=== PATIENT | female | born 1980 | race Caucasian/White ===

== ENCOUNTER → 2024-02-27 | Outpatient (CLI) | payer BC, SELFPAY ==
[2024-02-27 17:32] LABS: Absolute Lymphocyte Count 2.42 X10^3/uL (0.83-4.51); Absolute Neutrophil Count 4.1 X10^3/uL (2.0-7.7); Basophil# 0.04 X10^3/uL; Basophil% 0.6 % (0-1); Eosinophil# 0.06 X10^3/uL; Eosinophils% 0.9 % (0-5); Hematocrit 42.8 % (37-47); Lymphocyte # 2.42 X10^3/ul (0.83-4.51); Lymphocyte % 34.6 % (19-41); Mean Corp Hgb Conc 32.7 g/dL (32-36); Mean Corpuscular Hgb 28.8 pg (27.0-32.0); Mean Corpuscular Volume 88.1 fL (81-99); Mean Platelet Vol. 11.8 fl (6.2-12.0); Monocyte# 0.39 X10^3/uL; Monocyte% 5.6 % (0-10); NRBC Flagged by Analyzer 0 % (0-5); Neutrophil # 4.06 X10^3/uL (2.7-7.7); Neutrophil % 57.9 % (47-70); Platelet Count 320 K/mm3 (150-450); RBC Distribution Width CV 13.4 % (11.6-14.6); RBC Distribution Width SD 43.3 fl (35.1-43.9); Red Blood Count 4.86 M/mm3 (4.2-5.4)
[2024-02-27 17:59] LABS: Vitamin D,25 Hydroxy 31.7 ng/mL
[2024-02-27 18:13] LABS: AST(SGOT) 20 U/L (15-37); Alanine Aminotransfer ALT/SGPT 21 U/L (13-56); Albumin, Serum 4.2 g/dL (3.2-5.0); Alkaline Phosphatase 83 U/L (45-117); Anion Gap 8 (5-15); BUN 9 mg/dL (7-18); BUN/Creat Ratio 8.7 RATIO (10-20); Calcium,Total 9.4 mg/dL (8.5-10.1); Chloride 103 mmol/L (98-107); Cholesterol 215 mg/dL (200); Creatinine, Serum 1.04 mg/dL (0.55-1.02); EST Glomerular Filtration Rate 61 mL/min (>60); Est Glom Filt Rate - Afr Amer 74 mL/min (>60); Globulin 4.2 g/dL (2.2-4.2); Glucose 70 mg/dL (74-106); Hemoglobin A1c 7.4 % (3.8-5.6); High Density Lipoprotein 100 mg/dL; Potassium 3.6 mmol/L (3.5-5.1); Protein, Total 8.4 g/dL (6.4-8.2); Sodium Level 137 mmol/L (136-145); T4 Free Direct 1.22 ng/dL (0.76-1.46); Thyroid Stim Hormone (TSH) 3.47 uIU/mL (0.358-3.74); Triglycerides 54 mg/dL; Very Low Density Lipoprotein 11 mg/dL (5-40)
== END | disposition home or self-care (01) ==
LOC: MTLAB 14:52
PROVIDERS: PCP Family Medicine; Referring Provider Family Medicine; Visit Provider Family Medicine
DX: E10.9 Type 1 diabetes mellitus without complications (principal); E03.9 Hypothyroidism, unspecified; E78.5 Hyperlipidemia, unspecified
CPT/HCPCS: 36415; 80053; 80061; 82306; 83036; 84439; 84443; 85025

== ENCOUNTER → 2024-06-08 | Outpatient (CLI) | payer BC, SELFPAY ==
[2024-06-08 10:11] LABS: Hematocrit 41.2 % (37-47); Hemoglobin 13.2 g/dL (12.0-15.0); Mean Corpuscular Hgb 28.2 pg (27.0-32.0); Mean Platelet Vol. 11.3 fl (6.2-12.0); Platelet Count 236 K/mm3 (150-450); RBC Distribution Width CV 13.2 % (11.6-14.6); RBC Distribution Width SD 42.7 fl (35.1-43.9); Red Blood Count 4.68 M/mm3 (4.2-5.4); White Blood Count 8.8 K/mm3 (4.4-11.0)
[2024-06-08 11:11] LABS: ALB/GLOB Ratio 1.1 RATIO (0.9-2.4); AST(SGOT) 23 U/L (15-37); Alanine Aminotransfer ALT/SGPT 23 U/L (13-56); Albumin, Serum 3.9 g/dL (3.2-5.0); Alkaline Phosphatase 78 U/L (45-117); Anion Gap 8 (5-15); BUN 13 mg/dL (7-18); BUN/Creat Ratio 11.9 RATIO (10-20); Calcium,Total 9.1 mg/dL (8.5-10.1); Chloride 102 mmol/L (98-107); Cholesterol 209 mg/dL (200); Creatinine, Serum 1.09 mg/dL (0.55-1.02); EST Glomerular Filtration Rate 58 mL/min (>60); Est Glom Filt Rate - Afr Amer 70 mL/min (>60); Globulin 3.7 g/dL (2.2-4.2); Glucose 268 mg/dL (74-106); High Density Lipoprotein 84 mg/dL; Protein, Total 7.6 g/dL (6.4-8.2); Sodium Level 132 mmol/L (136-145); Triglycerides 66 mg/dL; Very Low Density Lipoprotein 13 mg/dL (5-40)
[2024-06-08 11:14] LABS: Microalbumin,Random Urine 24.8 mg/L (NO RANGE EST.); Microalbumin:Creatinine Ratio 8.8 mg/g CRE (<30 mg/g CRE)
== END | disposition home or self-care (01) ==
LOC: MTLAB 08:28
PROVIDERS: PCP Family Medicine; Referring Provider Internal Medicine Endocrinology, Diabetes & Metabolism; Visit Provider Internal Medicine Endocrinology, Diabetes & Metabolism
DX: E13.9 Other specified diabetes mellitus without complications (principal); E03.9 Hypothyroidism, unspecified
CPT/HCPCS: 36415; 80053; 80061; 82043; 82306; 82570; 84443; 85027

== ENCOUNTER → 2024-10-28 | Outpatient (CLI) | payer BC, SELFPAY ==
[2024-10-28 10:04] LABS: Hematocrit 40.4 % (37-47); Mean Corp Hgb Conc 32.2 g/dL (32-36); Mean Corpuscular Hgb 28.2 pg (27.0-32.0); Mean Corpuscular Volume 87.6 fL (81-99); Mean Platelet Vol. 10.8 fl (6.2-12.0); Platelet Count 241 K/mm3 (150-450); RBC Distribution Width CV 13.4 % (11.6-14.6); RBC Distribution Width SD 43.2 fl (35.1-43.9); Red Blood Count 4.61 M/mm3 (4.2-5.4); White Blood Count 6.4 K/mm3 (4.4-11.0)
[2024-10-28 10:38] LABS: Hemoglobin A1c 7.3 % (<=5.6)
[2024-10-28 10:54] LABS: ALB/GLOB Ratio 1.4 RATIO (0.9-2.4); AST(SGOT) 30 U/L (<=31); Alanine Aminotransfer ALT/SGPT 24 U/L (<=34); Albumin, Serum 4.2 g/dL (3.5-5.0); Alkaline Phosphatase 74 U/L (35-104); Anion Gap 12 (5-15); BUN 14 mg/dL (4-19); BUN/Creat Ratio 14.7 RATIO (10-20); Calcium,Total 9.2 mg/dL (7.6-11.0); Carbon Dioxide 22.3 mmol/L (21.0-32.0); Chloride 101 mmol/L (98-108); Cholesterol 219 mg/dL (<=200); Creatinine, Serum 0.97 mg/dL (0.70-1.20); EST Glomerular Filtration Rate 75 (>60); Glucose 160 mg/dL (70-99); High Density Lipoprotein 85 mg/dL; Low Density Lipoprotein Calc. 121 mg/dL; Potassium 4.3 mmol/L (3.3-5.1); Protein, Total 7.2 g/dL (5.9-8.4); Sodium Level 135 mmol/L (133-145); Total Bilirubin 0.55 mg/dL (0.00-1.30); Triglycerides 65 mg/dL; Very Low Density Lipoprotein 13 mg/dL (5-40); cholesterol:hdl ratio screen 2.58
[2024-10-28 10:58] LABS: Free T3 2.6 pg/mL (2.18-3.98); Vitamin D,25 Hydroxy 24.3 ng/mL (30-100)
== END | disposition home or self-care (01) ==
LOC: MTLAB 08:19
PROVIDERS: PCP Family Medicine; Referring Provider Internal Medicine Endocrinology, Diabetes & Metabolism; Visit Provider Internal Medicine Endocrinology, Diabetes & Metabolism
DX: E10.9 Type 1 diabetes mellitus without complications (principal); E03.9 Hypothyroidism, unspecified; E78.5 Hyperlipidemia, unspecified; E55.9 Vitamin D deficiency, unspecified
CPT/HCPCS: 36415; 80053; 80061; 82306; 83036; 84439; 84443; 84481; 85027

== ENCOUNTER → 2024-12-20 | Outpatient (CLI) | payer BC, SELFPAY ==
--- NOTE | 2024-12-20 09:44 | RAD_ITS ---
PROCEDURE: CERV SPINE 4 OR 5 VIEWS 12/20/2024 REASON FOR EXAM: CHRONIC NECK PAIN TECHNIQUE: 5 views of the cervical spine. FINDINGS: Vertebrae: No acute fracture. disc spaces: Maintained. Obliques: No neural foraminal stenosis. Alignment: No subluxation. Straightening of the normal lordotic curvature. soft tissues: No prevertebral soft tissue swelling. Other: RAD/Cerv Spine 4 or 5 Views IMPRESSION: Straightening of the normal lordotic curvature possibly from muscular spasm. Disclaimer: Reading Location: [id number]
== END | disposition home or self-care (01) ==
LOC: MTRAD 09:44
PROVIDERS: PCP Family Medicine; Referring Provider Family Medicine; Visit Provider Family Medicine
DX: M54.2 Cervicalgia (principal); G89.29 Other chronic pain
CPT/HCPCS: 72050

== ENCOUNTER 2025-01-28 08:04 | Outpatient (CLI) | payer BC, SELFPAY ==
[2025-01-28 10:45] LABS: Hemoglobin A1c 7.7 % (<=5.6)
[2025-01-28 11:00] LABS: ALB/GLOB Ratio 1.4 RATIO (0.9-2.4); AST(SGOT) 24 U/L (<=31); Alanine Aminotransfer ALT/SGPT 19 U/L (<=34); Albumin, Serum 4.4 g/dL (3.5-5.0); Alkaline Phosphatase 79 U/L (35-104); Anion Gap 11 (5-15); BUN 14 mg/dL (4-19); BUN/Creat Ratio 13.1 RATIO (10-20); Calcium,Total 9.2 mg/dL (7.6-11.0); Carbon Dioxide 22.2 mmol/L (21.0-32.0); Chloride 104 mmol/L (98-108); Cholesterol 192 mg/dL (<=200); Creatinine, Serum 1.08 mg/dL (0.70-1.20); EST Glomerular Filtration Rate 65 (>60); Ferritin 29 ng/mL (22-378); Free T3 2.8 pg/mL (2.18-3.98); Globulin 3.2 g/dL (2.2-4.2); Glucose 133 mg/dL (70-99); High Density Lipoprotein 76 mg/dL; Low Density Lipoprotein Calc. 101 mg/dL; Potassium 4.3 mmol/L (3.3-5.1); Protein, Total 7.6 g/dL (5.9-8.4); Sodium Level 137 mmol/L (133-145); Total Bilirubin 0.38 mg/dL (0.00-1.30); Triglycerides 74 mg/dL; Very Low Density Lipoprotein 15 mg/dL (5-40); cholesterol:hdl ratio screen 2.53
[2025-01-28 11:10] LABS: Microalbumin,Random Urine < 12.0 mg/L (NO RANGE EST.); Microalbumin:Creatinine Ratio UNABLE TO CALCULATE mg/g CRE
[2025-01-28 12:21] LABS: Iron 55 ug/dL (50-170); Iron Binding Capacity,Total 309 ug/dL (250-450); Iron Binding Capacity,Unsat 254 ug/dL (228-428)
[2025-01-31 13:08] LABS: CHOLESTEROL TOTAL 189 mg/dL (100-199); HDL-C 77 mg/dL (>39); HDL-P TOTAL 35.1 umol/L (>=30.5); INSULIN RESISTANCE SCORE <25 (<=45); LDL SIZE 21.9 nm (>20.5); LDL-C (NIH CALC) 97 mg/dL (0-99); LDL-P 958 nmol/L (<1000); SMALL LDL-P 94 nmol/L (<=527); TRIGLYCERIDES 84 mg/dL (0-149)
== END 2025-01-28 23:59 | disposition home or self-care (01) ==
LOC: MTLAB 08:06
PROVIDERS: PCP Family Medicine; Referring Provider Internal Medicine Endocrinology, Diabetes & Metabolism; Visit Provider Internal Medicine Endocrinology, Diabetes & Metabolism
DX: E13.9 Other specified diabetes mellitus without complications (principal); Z79.4 Long term (current) use of insulin; E03.9 Hypothyroidism, unspecified; E78.5 Hyperlipidemia, unspecified; Z96.41 Presence of insulin pump (external) (internal)
CPT/HCPCS: 36415; 80053; 80061; 82043; 82570; 82728; 83036; 83540; 83550; 83704; 84439; 84443; 84481

== ENCOUNTER → 2025-04-08 | Outpatient (CLI) | payer BC, SELFPAY ==
--- NOTE | 2025-04-08 15:33 | RAD_ITS ---
PROCEDURE: HAND MIN 3 VIEWS 04/08/2025 REASON FOR EXAM: THUMB PAIN TECHNIQUE: HAND MIN 3 VIEWS Laterality: Right hand COMPARISON: None FINDINGS: Bones: No fracture. Joints: Normal alignment. Joint spaces preserved. No arthropathic features. Soft tissues: Soft tissues are unremarkable. Other: RAD/Hand Min 3 Views IMPRESSION: NEGATIVE HAND SERIES Reading Location: [id number]
== END | disposition home or self-care (01) ==
LOC: MTRAD 15:23
PROVIDERS: PCP Family Medicine; Referring Provider Family Medicine; Visit Provider Family Medicine
DX: M79.644 Pain in right finger(s) (principal)
CPT/HCPCS: 73130

== ENCOUNTER → 2025-08-03 | Outpatient (CLI) | payer BC, SELFPAY ==
--- OUTSIDE RECORDS SUMMARY | 2025-08-03 09:49 | XMS RPT_ITS | CCD ---
Author Organization [facility] Care French Folder Name Role Phone Laura RN, Gracie Unavailable Un available Laura BUTTS, Gracie Unavailable Un available Alphonse [employer] MAGENT[employer] DEVELOPER, Tayesha Primary Care Provider Alphonse [employer] DEVELOPER, Tayesha Unavailable Eris Valdez MD Unavailable Laura BUTTS, Gracie Unavailable Un available Alphonse [employer] DEVELOPER, Tayesha Primary Care Provider Alphonse [employer] DEVELOPER, Tayesha Unavailable Courtney MOREIRA, Eris Unavailable Radha Cole DO Unavailable [phone] Dejuan Boles MD Primary Care Provider Laura BUTTS, Gracie Unavailable Un available Alphonse [employer] MAG[employer] DEVELOPER, Tayesha Unavailable Courtney MOREIRA, Eris Unavailable Radha Cole DO Unavailable Dejuan Boles MD Primary Care Provider Jefferson MOREIRA, Deacon Nguyễn Unavailable Austin Wood PT Unavailable Laura BUTTS, Gracie Unavailable Un available Alphonse [employer] DEVELOPER, Tayesha Unavailable Austin Wood PT Unavailable Deepak Hall DOwon Unavailable Eris Valdez MD Unavailable Pat MOREIRA, Anna Pleitez Unavailable Laura RN, Gracie Unavailable Un available Alphonse [employer] DEVELOPER, Tusharesha Unavailable Jefferson MOREIRA, Deacon Nguyễn Unavailable Hall DO, Kailey Unavailable DEJUAN BOLES Primary Care Unavailable PROVIDER, UNKNOWN Admitting Unavailable PROVIDER, UNKNOWN Attending Unavailable YESENIA PERRY Referring Unavailable Angelica Watkins MD Primary Care Provider Steven MOREIRA, Dr. Ifeoma Buckner Attending Provide r Steven MOREIRA, Dr. Ifeoma Buckner Referring Provide r JUNE DAVIES, EUGENIO Primary Care Physician Angelica Watkins MD Attending Provider Angelica Watkins MD Referring Provider JUNE DO, EUGENIO Primary Care Unavailable ERIC MOREIRA, DARLENE Attending Unavailable ERIC MOREIRA, DARLENE Attending Unavailable JUNE DO, [facility] Primary Care Unavailable Angelica Watkins MD Primary Care Provider [phone] Steven MOREIRA, Dr. Ifeoma Buckner Attending Provide r Steven MOREIRA, Dr. Ifeoma Buckner Referring Provide r Dr. Elfego Durand MD Attending Provider Dr. Elfego Durand MD Referring Provider Jared Kunz Primary Care Unavailable Raghunathan, Ifeoma Na Attending Unavaila ble Raghunathan, Ifeoma Na Referring Unavaila ble Raghunathan, Ifeoma Na Attending Unavaila ble Raghunathan, Ifeoma Na Referring Unavaila ble June, Alon Primary Care Unavailable June, Chalon Primary Care Unavailable Angelica Watkins Attending Unavailable June, Chalon Referring Unavailable Raghunathan, Ifeoma Na Attending Unavaila ble Raghunathan, Ifeoma Na Referring Unavaila ble June, Chalon Primary Care Unavailable Elfego Durand Attending Unavailable Elfego Durand Referring Unavailable Angelica Watkins Primary Care Unavailable Dejuan Crain MD Primary Care Provider [phone] JUNELUIS A DAVIES, EUGENIO Primary Care Unavailable SANTI MOREIRA, ADRIAN Attending Unavailable JUNE DAVIES, EUGENIO Primary Care Unavailable SANTI MOREIRA, ADRIAN Attending Unavailable DARLENE REYES MD Attending Unavailable JUNE DAVIES, EUGENIO Primary Care Unavailable JUNE DAVIES, EUGENIO Primary Care Unavailable SANTI MOREIRA, ADRIAN Attending Unavailable Allergies Allergy Classification Reported Allergen(s) Allergy Type Date of Onset Reaction(s) Facility (20 sources) Sulfamethoxazole / Trimethoprim; Translations: [SULFAMETHOXAZOLE W-TRIMETHOPRIM] Drug Allergy 9 [facility] Work Phone: Medications Current Medications Medication Drug Class(es) Dates Sig (Normalized) Sig (Original) acetaminophen 500 mg oral tablet (1 source) Start: 02-07-2025 End: 03-07-2025 Tylenol Extra Strength 500 mg oral tablet Dose : 500 mg = 1 tab(s), Oral, q6hr, PRN pain 1-6, X 14 day(s), # 24 tab(s), 1 Refill(s), 03/07/25 7:42:00 AM EDT, Pharmacy: [facility], 157.48, cm, 02/07/25 7:08:00 EDT, Height, kg, 02/07/25 7:08:00 EDT, Dosing Weight Start Date: 02/07/25 Stop Date: 03/07/25 Status: Ordered Quantity: 24.0 Unit: tab(s) Repeat number: 2 acetaminophen 325 mg / oxyCODONE hydrochloride 5 mg oral tablet (1 source) Opioid Agonist Start: 02-07-2025 End: 02-10-2025 Percocet 5 mg-325 mg oral tablet Dose = 1 tab(s), Oral, q6hr, PRN for pain 7-10, X 3 day(s), # 5 tab(s), 0 Refill(s), Pharmacy: [facility], Postoperative pain, 157.48, cm, 02/07/25 7:08:00 EDT, Height, 68.18, kg, 02/07/25 7:08:00 EDT, Dosing Weight Start Date: 02/07/25 Stop Date: 02/10/25 Status: Ordered Quantity: 5.0 Unit: tab(s) Repeat number: 1 Indications: Other acute postprocedural pain; Albuterol (20 sources) beta2-Adrenergic Agonist Start: 05-27-2024 albuterol PRN as needed for shortness of breath or wheezing, 0 Refill(s) Start Date: 05/27/24 Status: Ordered Medication Dispense Status: Completed Total Allowed Fills: 1 Fills Dispensed: 0 Start: 05-27-2024 albuterol PRN as needed for shortness of breath or wheezing, 0 Refill(s) Start Date: 05/27/24 Status: Ordered Repeat number: 1 Start: 10-16-2021 End: 08-21-2022 take 2 puff(s) by mouth every four hours as needed for wheezing albuterol (PROVENTIL HFA) INHALATION HFA inhaler (VENTOLIN,PROAIR,PROVENTIL) 90mcg Indications: Mild intermittent asthma without complication (HCC) Inhale 2 Puffs by mouth every 4 hours as needed for Wheezing or Shortness of Breath. 8.5 g 5 07/22/2022 Active amoxicillin 875 mg / clavulanate 125 mg oral tablet (3 sources) Penicillin-class Antibacterial Start: 07-22-2022 End: 07-29-2022 take 1 tablet by mouth twice daily amoxicillin-clavulanate (Augmentin) 875-125 MG per tablet Indications: Acute recurrent sinusitis, unspecified location Take 1 Tablet by mouth 2 times daily for 7 days. 14 Tablet 0 07/22/2022 07/29/2022 Active Start: 06-18-2022 End: 06-25-2022 take 1 tablet by mouth twice daily amoxicillin-clavulanate (Augmentin) 875-125 MG per tablet Indications: Acute bacterial rhinosinusitis Take 1 Tablet by mouth 2 times daily for 7 days. (take until gone) 14 Tablet 0 06/18/2022 06/25/2022 Active ascorbic acid 60 mg / beta carotene 5000 unt / copper sulfate 40 mg / dl-alpha tocopheryl acetate 30 unt / sodium selenite 0.04 mg / zinc oxide 40 mg oral tablet (20 sources) Vitamin C Multiple Vitamin (Multivitamin Adult) TABS as directed Active atorvastatin 80 mg oral tablet (20 sources) HMG-CoA Reductase Inhibitor Start: 07-15-2024 atorvastatin 80 mg oral tablet Dose : 80 mg = 1 tab(s), Oral, Daily, # 90 tab(s), 1 Refill(s), Pharmacy: [facility], 157.5, cm, 02/01/25 11:13:00 EDT, Height, kg, 02/01/25 11:13:00 EDT, Dosing Weight Start Date: 02/02/25 Status: Ordered Medication Dispense Status: Completed Quantity: 90.0 Unit: tab(s) Total Allowed Fills: 2 Fills Dispensed: 0 Start: 02-04-2023 End: 06-27-2024 take 1 tablet by mouth once daily atorvastatin (LIPITOR) 80 mg tablet Indications: Type 1 diabetes mellitus without complication (HCC) Take 1 Tablet by mouth daily. 90 Tablet 03/29/2024 06/27/2024 Active Start: 10-16-2021 End: 07-22-2023 take 1 tablet by mouth once daily atorvastatin (LIPITOR) 40 mg tablet Indications: Type 1 diabetes mellitus without complication (HCC) Take 1 Tablet by mouth daily. 90 Tablet 3 07/22/2022 07/22/2023 Active Continuous Blood Gluc Sensor (Dexcom G6 Sensor) MISC (20 sources) Start: 01-17-2023 Continuous Blo od Gluc Sensor (Dexcom G6 Sensor) MISC 1 Units every 10 days. 9 Each 5 01/17/2023 Active Start: 03-01-2022 Continuous Blo od Gluc Sensor (Dexcom G6 Sensor) MISC 1 Units every 10 days. 9 Each 5 03/01/2022 Active Start: 10-30-2021 Continuous Blo od Gluc Sensor (Dexcom G6 Sensor) MISC 1 Units every 10 days. 3 Each 2 10/30/2021 Active Continuous Blood Gluc Transm it (Dexcom G6 Transmitter) MISC (15 sources) Start: 01-16-2023 Continuous Blo od Gluc Transmit (Dexcom G6 Transmitter) MISC 1 Device every 3 months. 1 Each 01/16/2023 Active Continuous Glucose Sensor (Dexcom G6 Sensor) (5 sources) Start: 07-15-2024 Continuous Glu cose Sensor (Dexcom G6 Sensor) Indications: Type 1 diabetes mellitus without complication (HCC) 1 Each every 10 days. 9 Each 07/16/2024 11:30 AM EST 07/15/2024 Active Start: 03-29-2024 End: 06-27-2024 Continuous Glucose Sensor (D excom G6 Sensor) Indications: Type 1 diabetes mellitus without complication (HCC) 1 Each every 10 days. 9 Each 03/29/2024 06/27/2024 Active Start: 01-17-2023 End: 03-26-2024 Continuous Glucose Sensor (D excom G6 Sensor) 1 Units every 10 days. 9 Each 5 01/17/2023 03/26/2024 Discontinued (Reorder (*won't e-cancel)) Start: 01-17-2023 Continuous Glu cose Sensor (Dexcom G6 Sensor) 1 Units every 10 days. 9 Each 01/17/2023 Active Continuous Glucose Transmitt er (Dexcom G6 Transmitter) (4 sources) Start: 03-29-2024 End: 06-27-2024 Continuous Glucose Transmitt er (Dexcom G6 Transmitter) Indications: Type 1 diabetes mellitus without complication (HCC) 1 Device every 3 months. 1 Each 03/29/2024 06/27/2024 Active Start: 01-16-2023 End: 03-26-2024 Continuous Glucose Transmitt er (Dexcom G6 Transmitter) 1 Device every 3 months. 1 Each 01/16/2023 03/26/2024 Discontinued (Reorder (*won't e-cancel)) Start: 01-16-2023 Continuous Glu cose Transmitter (Dexcom G6 Transmitter) 1 Device every 3 months. 1 Each 01/16/2023 Active DME MISCellaneous (20 sources) Start: 02-02-2025 DME MISCellane ous See Instructions, Omnipod 5 g6/g7 pods 1 pod every 3 days #2 boxes for 90 days and 2 refills E11.65., # 2 EA, 6 Refill(s), Pharmacy: [facility], 157.5, cm, 02/01/25 11:13:00 EDT, Height, 68.2, kg, 02/01/25 11:13:00 EDT, Dosing Weight Start Date: 02/02/25 Status: Ordered Medication Dispense Status: Completed Quantity: 2.0 Unit: EA Total Allowed Fills: 7 Fills Dispensed: 0 Start: 02-02-2025 DME MISCellane ous See Instructions, Dexcom G6 Transmitter. 1 every 90 days. 1 refill. E11.65, # 1 EA, 1 Refill(s), Pharmacy: [facility], 157.5, cm, 02/01/25 11:13:00 EDT, Height, 68.2, kg, 02/01/25 11:13:00 EDT, Dosing Weight Start Date: 02/02/25 Status: Ordered Medication Dispense Status: Completed Quantity: 1.0 Unit: EA Total Allowed Fills: 2 Fills Dispensed: 0 Start: 02-02-2025 DME MISCellane ous See Instructions, Omnipod 5 g6/g7 pods 1 pod every 3 days #2 boxes for 90 days and 2 refills E11.65., # 2 EA, 6 Refill(s), Pharmacy: [facility], 157.5, cm, 02/01/25 11:13:00 EDT, Height, 68.2, kg, 02/01/25 11:13:00 EDT, Dosing Weight Start Date: 02/02/25 Status: Ordered Quantity: 2.0 Unit: EA Repeat number: 7 Start: 02-02-2025 DME MISCellane ous See Instructions, Dexcom G6 Transmitter. 1 every 90 days. 1 refill. E11.65, # 1 EA, 1 Refill(s), Pharmacy: [facility], 157.5, cm, 02/01/25 11:13:00 EDT, Height, 68.2, kg, 02/01/25 11:13:00 EDT, Dosing Weight Start Date: 02/02/25 Status: Ordered Quantity: 1.0 Unit: EA Repeat number: 2 Start: 01-11-2025 DME MISCellane ous See Instructions, Dexcom G6 Sensors. 1 sensor every 10 days. 3 per 30 days. 3 refills. E11.65, # 3 EA, 3 Refill(s), Pharmacy: [facility], 157.5, cm, 01/05/25 13:11:00 EDT, Height, 69, kg, 01/05/25 13:11:00 EDT, Dosing Weight Start Date: 01/11/25 Status: Ordered Medication Dispense Status: Completed Quantity: 3.0 Unit: EA Total Allowed Fills: 4 Fills Dispensed: 0 Start: 01-11-2025 DME MISCellane ous See Instructions, Dexcom G6 Sensors. 1 sensor every 10 days. 3 per 30 days. 3 refills. E11.65, # 3 EA, 3 Refill(s), Pharmacy: [facility], 157.5, cm, 01/05/25 13:11:00 EDT, Height, 69, kg, 01/05/25 13:11:00 EDT, Dosing Weight Start Date: 01/11/25 Status: Ordered Quantity: 3.0 Unit: EA Repeat number: 4 Start: 12-13-2024 DME MISCellane ous See Instructions, Dexcom G6 Transmitter. 1 every 90 days. 1 refill. E11.65, # 1 EA, 1 Refill(s), Pharmacy: [facility], 156, cm, 10/28/24 14:15:00 EST, Height, 66.5, kg, 10/28/24 14:15:00 EST, Dosing Weight Start Date: 12/13/24 Status: Ordered Quantity: 1.0 Unit: EA Repeat number: 2 Start: 10-28-2024 DME MISCellane ous See Instructions, Omnipod 5 g6/g7 pods 1 pod every 3 days #2 boxes for 90 days and 2 refills E11.65., # 2 EA, 6 Refill(s), Pharmacy: [facility], 156, cm, 10/28/24 14:15:00 EST, Height, 66.5, kg, 10/28/24 14:15:00 EST, Dosing Weight Start Date: 10/28/24 Status: Ordered Quantity: 2.0 Unit: EA Repeat number: 7 Start: 08-10-2024 DME MISCellane ous See Instructions, skin tack wipe, 1 wipe per 10 days to be used with dexcom sensor application. 1 box for 90 days and 1 refill E11.65., # 1 EA, 1 Refill(s), Pharmacy: [facility], 156, cm, 08/10/24 9:01:00 EST, Height, 67.86, kg, 08/10/24 9:01:00 EST, Dosing Weight Start Date: 08/10/24 Status: Ordered Medication Dispense Status: Completed Quantity: 1.0 Unit: EA Total Allowed Fills: 2 Fills Dispensed: 0 Start: 08-10-2024 DME MISCellane ous See Instructions, skin tack wipe, 1 wipe per 10 days to be used with dexcom sensor application. 1 box for 90 days and 1 refill E11.65., # 1 EA, 1 Refill(s), Pharmacy: [facility], 156, cm, 08/10/24 9:01:00 EST, Height, 67.86, kg, 08/10/24 9:01:00 EST, Dosing Weight Start Date: 08/10/24 Status: Ordered Quantity: 1.0 Unit: EA Repeat number: 2 glucagon 3 mg nasal powder (20 sources) Antihypoglycemic Agent Start: 07-22-2022 Glucago n (Baqsimi Two Pack) 3 MG/DOSE POWD Indications: Type 1 diabetes mellitus without complication Use 1 Dose in each nostril as needed. For hypoglycemia 2 Each 3 07/22/2022 Active Start: 10-21-2021 End: 07-22-2022 Glucagon (Baqsimi Two Pack) 3 MG/DOSE POWD Use 3 mg in each nostril as needed. For hypoglycemia 1 Each 3 10/21/2021 07/22/2022 Discontinued (Reorder (*won't e-cancel)) herbal/nutritional product (3 sources) Start: 02-01-2025 herbal/nutriti onal product green tea pill, 0 Refill(s) Start Date: 02/01/25 Status: Ordered Medication Dispense Status: Completed Total Allowed Fills: 1 Fills Dispensed: 0 Start: 02-01-2025 herbal/nutriti onal product green tea pill, 0 Refill(s) Start Date: 02/01/25 Status: Ordered Repeat number: 1 hydrOXYzine hydrochloride 25 mg oral tablet (1 source) Antihistamine Start: 05-03-2025 hydrOXYzine hydrochloride 25 mg oral tablet Dose : 25 mg = 1 tab(s), Oral, QID, PRN as needed for anxiety, # 20 tab(s), 0 Refill(s), Pharmacy: [facility], Anxiety, 156, cm, 05/03/25 9:31:00 EDT, Height, kg, 05/03/25 9:31:00 EDT, Dosing Weight Start Date: 05/03/25 Status: Ordered Medication Dispense Status: Completed Quantity: 20.0 Unit: tab(s) Total Allowed Fills: 1 Fills Dispensed: 0 Indications: Anxiety disorder, unspecified; ibuprofen 600 mg oral tablet (1 source) Nonsteroidal Anti-inflammatory Drug Start: 02-07-2025 End: 02-21-2025 ibuprofen 600 mg oral tablet Dose : 600 mg = 1 tab(s), Oral, q6h, X 14 day(s), # 56 tab(s), 0 Refill(s), 02/21/25 7:41:00 AM EDT, Pharmacy: [facility], 157.48, cm, 02/07/25 7:08:00 EDT, Height, kg, 02/07/25 7:08:00 EDT, Dosing Weight Start Date: 02/07/25 Stop Date: 02/21/25 Status: Ordered Quantity: 56.0 Unit: tab(s) Repeat number: 1 insulin aspart, human 100 unt/ml injectable solution (20 sources) Insulin Analog Start: 09-07-2022 End: 09-19-2023 insulin aspart (NovoLOG) 100 UNIT/ML injection use as directed in insulin pump up to 100 units per day 90 mL 5 12/26/2023 4:46 PM EDT 09/19/2023 Active insulin lispro 100 unt/ml injectable solution (20 sources) Insulin Analog Start: 04-04-2025 HumaLOG 100 un its/mL injectable solution VIAL Dose : 40 unit(s) =, Subcutaneous, qDay, via insulin pump, # 30 mL, 1 Refill(s), Pharmacy: [facility], 156, cm, 02/21/25 15:10:00 EDT, Height, kg, 02/21/25 15:10:00 EDT, Dosing Weight Start Date: 04/04/25 Status: Ordered Medication Dispense Status: Completed Quantity: 30.0 Unit: mL Total Allowed Fills: 2 Fills Dispensed: 0 Start: 12-27-2024 HumaLOG 100 un its/mL injectable solution VIAL Dose : 40 unit(s) =, Subcutaneous, qDay, via insulin pump, # 30 mL, 1 Refill(s), Pharmacy: [facility], 156, cm, 10/28/24 14:15:00 EST, Height, kg, 10/28/24 14:15:00 EST, Dosing Weight Start Date: 12/27/24 Status: Ordered Quantity: 30.0 Unit: mL Repeat number: 2 Start: 03-28-2024 insulin lispro (HumaLOG) 100 UNIT/ML injection Indications: Type 1 diabetes mellitus without complication use as directed in insulin pump up to 100 units per day 90 mL 03/29/2024 4:38 PM EDT 03/28/2024 Active Start: 07-22-2022 End: 03-26-2024 insulin lispro (HumaLOG) 100 UNIT/ML injection Indications: Type 1 diabetes mellitus without complication (HCC) use as directed in insulin pump up to 100 units per day 90 mL 3 07/22/2022 03/26/2024 Discontinued (Reorder (*won't e-cancel)) Start: 01-14-2022 End: 07-22-2022 insulin lispro (HumaLOG) 100 UNIT/ML injection use as directed in insulin pump up to 100 units per day 90 mL 0 01/14/2022 07/22/2022 Discontinued (Reorder (*won't e-cancel)) Start: 09-20-2021 insulin lispro (HumaLOG) 100 UNIT/ML injection Use as directed in insulin pump up to 100 units per day. 90 mL 1 09/20/2021 Active levothyroxine sodium 0.112 mg oral tablet (20 sources) l-Thyroxine Start: 12-13-2024 levothyroxine 112 mcg (0.112 mg) oral tablet Dose : 112 mcg = 1 tab(s), Oral, qDay, # 30 tab(s), 4 Refill(s), Pharmacy: [facility], 157.5, cm, 02/01/25 11:13:00 EDT, Height, kg, 02/01/25 11:13:00 EDT, Dosing Weight Start Date: 02/02/25 Status: Ordered Medication Dispense Status: Completed Quantity: 30.0 Unit: tab(s) Total Allowed Fills: 5 Fills Dispensed: 0 Start: 10-16-2021 End: 09-18-2024 take 1 tablet by mouth once daily in the evening levothyroxine (SYNTHROID) 100 MCG tablet Indications: Hypothyroidism, unspecified type Take 1 Tablet by mouth daily. 90 Tablet 3 03/29/2024 4:38 PM EDT 09/19/2023 Active molnupiravir (LAGEVRIO) 200 MG CAPS capsule (2 sources) Start: 03-11-2022 End: 03-16-2022 take 4 capsules by mouth twice daily molnupiravir (LAGEVRIO) 200 MG CAPS capsule Take 4 Capsules by mouth 2 times daily for 5 days. 40 Capsule 0 03/11/2022 03/16/2022 Active montelukast 10 mg oral tablet (20 sources) Leukotriene Receptor Antagonist Start: 10-16-2021 End: 09-18-2024 take 1 tablet by mouth once daily in the evening montelukast (SINGULAIR) 10 MG tablet Indications: Mild intermittent asthma without complication (HCC) Take 1 Tablet by mouth daily. 90 Tablet 3 07/14/2024 4:40 PM EST 09/19/2023 Active nitrofurantoin, macrocrystals 25 mg / nitrofurantoin, monohydrate 75 mg oral capsule (1 source) Nitrofuran Antibacterial Start: 05-03-2025 End: 05-10-2025 Macrobid 100 mg oral capsule Dose : 100 mg = 1 cap(s), Oral, BID, Take with food, X 7 day(s), # 14 cap(s), 0 Refill(s), 05/10/25 9:46:00 AM EDT, Pharmacy: [facility], 156, cm, 05/03/25 9:31:00 EDT, Height, 68.1, kg, 05/03/25 9:31:00 EDT, Dosing Weight Start Date: 05/03/25 Stop Date: 05/10/25 Status: Ordered Medication Dispense Status: Completed Quantity: 14.0 Unit: cap(s) Total Allowed Fills: 1 Fills Dispensed: 0 norethindrone 0.35 mg oral tablet (14 sources) Start: 05-26-2023 End: 05-25-2024 take 1 tablet by mouth once daily norethindrone (MICRONOR) 0.35 MG tablet Take 1 Tablet by mouth daily. 84 Tablet 4 05/28/2023 10:42 AM EDT 05/26/2023 Active Probiotic (5 sources) Start: 01-05-2025 Probiotic 0 Refill(s) Start Date: 01/05/25 Status: Ordered Medication Dispense Status: Completed Total Allowed Fills: 1 Fills Dispensed: 0 Start: 01-05-2025 Probiotic 0 Re fill(s) Start Date: 01/05/25 Status: Ordered Repeat number: 1 Vitamin D3 (5 sources) Start: 01-05-2025 Vitamin D3 qDa y, 0 Refill(s) Start Date: 01/05/25 Status: Ordered Medication Dispense Status: Completed Total Allowed Fills: 1 Fills Dispensed: 0 Start: 01-05-2025 Vitamin D3 qDa y, 0 Refill(s) Start Date: 01/05/25 Status: Ordered Repeat number: 1 Completed/Discontinued Medications Medication Drug Class(es) Dates Sig (Normalized) Sig (Original) 10 ml lidocaine hydrochloride 20 mg/ml injection (4 sources) Antiarrhythmic, Amide Local Anesthetic Start: 12-06-2022 End: 12-06-2022 lidocaine (XYLOCAINE) 2 % injection Start: 12-06-2022 End: 12-06-2022 lidocaine (XYLOCAINE) 2 % in jection Start: 12-06-2022 End: 12-06-2022 lidocaine (XYLOCAINE) 2 % in jection Start: 12-06-2022 End: 12-06-2022 lidocaine (XYLOCAINE) 2 % in jection nirmatrelvir-ritonavir (PAXLOVID) 20 x 150 MG & 10 x 100MG tablet therapy pack (1 source) Start: 03-11-2022 End: 03-11-2022 nirmatrelvir-ritonavir (PAXLOVID) 20 x 150 MG & 10 x 100MG tablet therapy pack Take two nirmatrelvir (pink) tablets (300 mg) and one 100 mg ritonavir (white) tablet twice a day for 5 days until finished. 30 Tablet 0 03/11/2022 03/11/2022 Discontinued (Error) 1 ml triamcinolone acetonide 40 mg/ml prefilled syringe (4 sources) Corticosteroid Start: 12-06-2022 End: 12-06-2022 triamcinolone acetonide (KENALOG-40) 40 MG/ML injection Start: 12-06-2022 End: 12-06-2022 triamcinolone acetonide (RICKIE ALOG-40) 40 MG/ML injection Start: 12-06-2022 End: 12-06-2022 triamcinolone acetonide (RICKIE ALOG-40) 40 MG/ML injection Start: 12-06-2022 End: 12-06-2022 triamcinolone acetonide (RICKIE ALOG-40) 40 MG/ML injection Problems Active Problems Problem Classification Problem Date Documented Date Episodic/Chronic Anxiety disorders (20 sources) Aerophobia; 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] Onset: 08-29-2021 08-29-2021 Chronic Asthma (20 sources) Mild intermittent asthma; Translations: [Mild intermittent asthma, uncomplicated] Onset: 08-29-2021 08-29-2021 Chronic Diabetes mellitus with complications (2 sources) Hyperglycemia due to type 1 diabetes mellitus; Translations: [Type 1 diabetes mellitus with hyperglycemia] Chronic Diabetes mellitus without complication (20 sources) Type 1 diabetes mellitus; Translations: [Type 1 diabetes mellitus without complications] Onset: 08-29-2021 08-29-2021 Chronic Disorders of lipid metabolism (20 sources) Hyperlipidemia; Translations: [Hyperlipidemia, unspecified] Onset: 08-29-2021 08-29-2021 Chronic Genitourinary symptoms and ill-defined conditions (2 sources) Dysuria; Translations: [Dysuria] Onset: 05-03-2025 Episodic Malaise and fatigue (5 sources) Fatigue 05-26-2024 Episodic Menstrual disorders (20 sources) Intermenstrual bleeding - irregular; Translations: [Excessive and frequent menstruation with irregular cycle] Onset: 08-29-2021 08-29-2021 Chronic Nutritional deficiencies (5 sources) Vitamin D deficiency 06-22-2024 Chronic Other and unspecified benign neoplasm (5 sources) Leiomyoma 05-27-2024 Episodic Other connective tissue disease (2 sources) Biceps tendinitis; Translations: [Bicipital tendinitis, right shoulder] Episodic Other connective tissue disease (1 source) Pain in right finger(s); Translations: [Pain in right finger(s)] Onset: 04-14-2025 Episodic Other nervous system disorders (1 source) Postoperative pain ; Translations: [Other acute postprocedural pain] Onset: 02-07-2025 Episodic Other non-traumatic joint disorders (5 sources) Chronic pain of right upper limb; Translations: [Pain in right shoulder] Episodic Other nutritional; endocrine; and metabolic disorders (6 sources) Overweight in adulthood with body mass index of 25 or more but less than 30; Translations: [Body mass index (BMI) 26.0-26.9, adult] Episodic Other screening for suspected conditions (not mental disorders or infectious disease) (3 sources) Patient encounter status; Translations: [Encounter for screening mammogram for malignant neoplasm of breast] Onset: 11-10-2023 03-06-2023 Episodic Other upper respiratory infections (2 sources) Acute rhinosinusitis; Translations: [Acute sinusitis, unspecified] Episodic Thyroid disorders (20 sources) Hypothyroidism; Translations: [Hypothyroidism, unspecified] Onset: 08-29-2021 08-29-2021 Chronic Unclassified (1 source) OUTSIDE CORRESPONDENCE Unclassified (1 source) Patient encounter status 01-26-2025 Viral infection (1 source) Disease caused by 2019-nCoV; Translations: [COVID-19] Episodic Past or Other Problems Problem Classification Problem Date Documented Date Episodic/Chronic Benign neoplasm of uterus (20 sources) Uterine leiomyoma; Translations: [Leiomyoma of uterus, unspecified] Onset: 08-29-2021 08-29-2021 Episodic Other nervous system disorders (1 source) Other acute postprocedural pain; Translations: [Other acute postprocedural pain] Onset: 02-07-2025 Episodic Spondylosis; intervertebral disc disorders; other back problems (1 source) Cervicalgia; Translations: [Cervicalgia] Onset: 12-23-2024 Episodic Results Test Name Value Interpretation Reference Range Facility No Panel Informationon 05-03 Culture Urine 10,000 - 50,000 cfu/ ml Mixed growth consistent with normal urogenital farnaz. [facility] Work Phone: Hand Min 3 Viewson 5 Hand Min 3 Views [facility] Imaging Services [address] [place] [address] [id number] Hand Min 3 Views MR#: [id number] Acct: [id number] Name: REYES BRAGA Rep #: [id number] : 1980 F 44 From: Jozef mcgee MD PCP: Dr. Angelica Watkins MD Status: REG CLI Study: Hand Min 3 Views Date of Exam: 04/08/25 Exam# [id number] Ordering Dr: Elfego Durand MD PROCEDURE: HAND MIN 3 VIEWS 04/08/2025 REASON FOR EXAM: THUMB PAIN TECHNIQUE: HAND MIN 3 VIEWS Laterality: Right hand COMPARISON: None FINDINGS: Bones: No fracture. Joints: Normal alignment. Joint spaces preserved. No arthropathic features. Soft tissues: Soft tissues are unremarkable. Other: RAD/Hand Min 3 Views IMPRESSION: NEGATIVE HAND SERIES Reading Location: [id number] CC: Dr. Angelica Watkins MD; Dr. Elfego Durand MD Php Magento Developer: Signed [facility] Final Surgical Pathology Rep [facility] 02-08-2025 Final Surgical Pathology Report . Pathology Reports Accession: Collected Date/Time: Received Date/Time: Pathologist: [id number] 02/07/2025 07:56 EDT 02/07/2025 14:11 EDT NIKKO PUGA MD Final Surgical Pathology Report DIAGNOSIS: ENDOMETRIAL CURETTINGS: - PROLIFERATIVE ENDOMETRIUM, WITH FOCAL DISORDERED PROLIFERATIVE PATTERN - NEGATIVE FOR HYPERPLASIA OR MALIGNANCY CLINICAL INFORMATION: ABNORMAL UTERINE AND VAGINAL BLEEDING Procedure: ABNORMAL UTERINE BLEEDING, UTERINE POLYP, STERILIZATION Preoperative diagnosis: DILATION AND CURETTAGE HYSTEROSCOPY, NOVASURE ENDOMETRIAL ABLATION Postoperative diagnosis: DILATION AND CURETTAGE HYSTEROSCOPY, NOVASURE ENDOMETRIAL ABLATION SPECIMEN: A ENDOMETRIAL CURETTINGS GROSS DESCRIPTION: All parts labelled with patient name and [id number] Received in formalin labelled endometrial curettings Are multiple aranda-brown hemorrhagic curettings aggregating to 2.5 x 2 x 0.7 cm. TS-1 Tima Hernandez, Pathologists' Battery Plate Remover (ASCP) Performed by TIMA HERNANDEZ MICROSCOPIC DESCRIPTION: The microscopic examination is performed, except in the case of Gross Only. Verified by Pathology Report verified by [facility] NIKKO PUGA Sign out Date: 02/08/2025 12:49 Performing Lab: [facility], [address] [place] [address] Pathology Dept Disclaimer If ancillary studies were utilized, the following Laboratory Developed Test (LDT) disclaimer will apply: Under CLIA requirements, [facility] is qualified to perform high complexity testing. For all ancillary stains, positive and negative controls stain appropriately. Performance characteristics of immunohistochemical and chromogenic in-situ hybridization tests have been determined by [facility]. These tests are used for clinical purposes, They should not be regarded as investigational or for research. Normal [facility] LABORATORYOrdered By: Denis Vidales on 02-07-2025 Glucose [Mass/Vol] 197 mg/dL High 70 - 110 mg/dL [facility] Work Phone: LABORATORYOrdered By: Flory Irizarry on 02-07-2025 HCG ( test) Ql Negative (02/07/25 6:53 AM) Normal AO Manual Urine SS test (u) int Not detected Invalid Interpretation Code AO Manual Urine SS PREGUon 02-07-2025 HCG ( test) Ql (U) Negative Normal [facility] Comment on above: Performed By: #### P REGU #### [address] [place], [place] [address] test (u) int Not detected Invalid Interpretation Code [facility] Comment on above: Performed By: #### P REGU #### [address] [address] NMR Lipoprofileon 01-31-2025 Cholesterol [Mass/Vol] 189 mg/dL Normal 100-199 [facility] Comment on above: Order Comment: Test( s) 528371-VSQ-Z; 524884-HHN-B; 020952-Rmqwnxnruhszn;975315-Nvvganqjbgd, Total; 830696-JQV-Q (Total); 676044-Ftolw LDL-P; 935423-UYR Size; 243737-HN-BU Scorewas developed and its performance characteristicsdetermined by [employer]. It has not been cleared or approvedby the Food and Drug Administration. Performed By: #### L 501.9985, L500.4100, L506.1001, L500.4050, L100.0500, L501.05237, L506.0400, L501.9520 #### [facility] [address] [place], [address] Cholesterol in HDL [Mass/Vol] 77 mg/dL Normal >39 [facility] Comment on above: Order Comment: Test( s) 616957-NGS-I; 984591-SFM-H; 719784-Rvpmaanmpnkwz;881436-Yweatccgwgw, Total; 030112-GGU-D (Total); 211109-Vgoki LDL-P; 529406-EEZ Size; 447128-ZG-QB Scorewas developed and its performance characteristicsdetermined by [employer]. It has not been cleared or approvedby the Food and Drug Administration. Performed By: #### L 501.9985, L500.4100, L506.1001, L500.4050, L100.0500, L501.58390, L506.0400, L501.9520 #### [facility] [address] [facility] [place], [address] Cholesterol in LDL [Mass/Vol] 97 mg/dL Normal 0-99 [facility] Comment on above: Order Comment: Test( s) 669628-TJJ-L; 609147-MPP-D; 852315-Hgoutauiidjsb;759197-Qkingadgxec, Total; 278341-MVV-V (Total); 845488-Dooir LDL-P; 070981-BMI Size; 022106-VB-GO Scorewas developed and its performance characteristicsdetermined by [employer]. It has not been cleared or approvedby the Food and Drug Administration. Result Comment: Opti mal < 100 Above optimal 100 - 129 Borderline 130 - 159 High 160 - 189 Very high > 189 Performed By: #### L 501.9985, L500.4100, L506.1001, L500.4050, L100.0500, L501.89692, L506.0400, L501.9520 #### [facility] [address] [place], [address] HDL-P TOTAL 35.1 umol/L Normal >=30.5 [facility] Comment on above: Order Comment: Test( s) 460573-OTJ-E; 470521-EDP-R; 295664-Atfzzdjiyquvg;839518-Bgqzkpowvku, Total; 104370-BUW-E (Total); 825808-Jqlzq LDL-P; 268319-STL Size; 488193-VD-US Scorewas developed and its performance characteristicsdetermined by [employer]. It has not been cleared or approvedby the Food and Drug Administration. Performed By: #### L 501.9985, L500.4100, L506.1001, L500.4050, L100.0500, L501.78791, L506.0400, L501.9520 #### [facility] [address] [place], [address] INS. RES. SCORE <25 Normal <=45 [facility] Comment on above: Order Comment: Test( s) 000965-HKE-I; 827769-PQM-T; 007470-Bntugwrxcbnxp;246701-Kkxbzafhasi, Total; 490172-CMF-M (Total); 804256-Ilynk LDL-P; 671847-AJR Size; 308720-OJ-PC Scorewas developed and its performance characteristicsdetermined by [employer]. It has not been cleared or approvedby the Food and Drug Administration. Result Comment: INSU GORDON RESISTANCE MARKER <--Insulin Sensitive Insulin Resistant--> Percentile in Reference Population Insulin Resistance Score LP-IR Score Low 25th 50th 75th High <27 27 45 63 >63 LP-IR Score is inaccurate if patient is non-fasting. The LP-IR score is a laboratory developed index that has been associated with insulin resistance and diabetes risk and should be used as one component of a physician's clinical assessment. Performed at: [address] [id number] [employer]: Yunior Nuñez MD, Phone: [phone] Performed By: #### L 501.9985, L500.4100, L506.1001, L500.4050, L100.0500, L501.38143, L506.0400, L501.9520 #### [facility] [address] [place], [place], [id number] LDL SIZE 21.9 nm Normal >20.5 [facility] Comment on above: Order Comment: Test( s) 085291-ODC-Y; 890586-COU-D; 891025-Mkfikedmxzyaf;589559-Epbtkhhenez, Total; 188436-VND-U (Total); 280410-Veuig LDL-P; 442093-FTN Size; 265520-PD-BC Scorewas developed and its performance characteristicsdetermined by [employer]. It has not been cleared or approvedby the Food and Drug Administration. Result Comment: INTERPRETATIVE INFORMATION PARTICLE CONCENTRATION AND SIZE <--Lower CVD Risk Higher CVD Risk--> LDL AND HDL PARTICLES Percentile in Reference Population HDL-P (total) High 75th 50th 25th Low >34.9 34.9 30.5 26.7 <26.7 Small LDL-P Low 25th 50th 75th High <117 117 527 839 >839 LDL Size <-Large (Pattern A)-> <-Small (Pattern B)-> 23.0 20.6 20.5 19.0 Small LDL-P and LDL Size are associated with CVD risk, but not after LDL-P is taken into account. Performed By: #### L 501.9985, L500.4100, L506.1001, L500.4050, L100.0500, L501.53917, L506.0400, L501.9520 #### [facility] [address] [place], [place], [id number] LDL-P 958 nmol/L Normal <1000 [facility] Comment on above: Order Comment: Test( s) 406606-VNZ-Q; 432589-VNP-I; 597488-Grmoiphnpavye;771179-Qnqjwlxgdfh, Total; 869998-CII-Z (Total); 571062-Mhjpe LDL-P; 463723-NNK Size; 481719-GI-SJ Scorewas developed and its performance characteristicsdetermined by [employer]. It has not been cleared or approvedby the Food and Drug Administration. Result Comment: Low < 1000 Moderate 1000 - 1299 Borderline-High 1300 - 1599 High 1600 - 2000 Very High > 2000 Performed By: #### L 501.9985, L500.4100, L506.1001, L500.4050, L100.0500, L501.43460, L506.0400, L501.9520 #### [facility] [address] [place], [address] (446) SMALL LDL-P 94 nmol/L Normal <=527 [facility] Comment on above: Order Comment: Test( s) 768845-ZMY-T; 500167-LJH-D; 930671-Oavgriaiattji;413916-Bkkxydmwtbp, Total; 328050-HDV-U (Total); 811404-Ybwoj LDL-P; 501251-AEC Size; 671471-HA-FY Scorewas developed and its performance characteristicsdetermined by [employer]. It has not been cleared or approvedby the Food and Drug Administration. Performed By: #### L 501.9985, L500.4100, L506.1001, L500.4050, L100.0500, L501.21885, L506.0400, L501.9520 #### [facility] [address] [place], [address] (298) Triglyceride [Mass/Vol] 84 mg/dL Normal 0-149 [facility] Comment on above: Order Comment: Test( s) 225790-IVM-C; 298709-RKZ-N; 519638-Dbxmllczpctbm;269616-Tkzmzgvrjms, Total; 843118-JSP-N (Total); 541777-Hnafv LDL-P; 781092-HUM Size; 001152-CE-QU Scorewas developed and its performance characteristicsdetermined by [employer]. It has not been cleared or approvedby the Food and Drug Administration. Performed By: #### L 501.9985, L500.4100, L506.1001, L500.4050, L100.0500, L501.61274, L506.0400, L501.9520 #### [facility] [address] [place], [place], [id number] Anion gap in Serum or Plasma Ordered By: Ifeoma Harris on 01-28-2025 Anion gap [Moles/Vol] 11 mmol/L - [facility] BUN/creatinine ratioOrdered By: Ifeoma Harris on 01-28-2025 Urea nitrogen/Creatinine [Mass ratio] 13.1 mg/mg 06-13 [facility] Bilirubin, totalOrdered By: Ifeoma Harris on 01-28-2025 Bilirubin [Mass/Vol] 0.38 mg/dL Normal 0.00-1.[address] [facility] Comment on above: Performed By: #### L 501.9985, L500.4100, L506.1001, L500.4050, L100.0500, L501.89166, L506.0400, L501.9520 #### [facility] [address] [place], [place], [id number] Calculated very low density lipoprotein (VLDL) cholesterol measurementOrdered By: Ifeoma Harris on 01-28-2025 Calculated very low density lipoprotein (VLDL) cholesterol measurement 15 mg/dL [facility] Carbon dioxide, total [Moles /volume] in Central venous bloodOrdered By: Ifeoma Harris on 01-28-2025 CO2 [Moles/Vol] 22.2 mmol/L Normal 21.0-32.0 [facility] Comment on above: Performed By: #### L 501.9985, L500.4100, L506.1001, L500.4050, L100.0500, L501.75302, L506.0400, L501.9520 #### [facility] [address] [place], [place], [address] Chloride assayOrdered By: Jayme Harris on 01-28-2025 Chloride [Moles/Vol] 104 mmol/L Normal 98-[address] [facility] Comment on above: Performed By: #### L 501.9985, L500.4100, L506.1001, L500.4050, L100.0500, L501.08567, L506.0400, L501.9520 #### [facility] [address] [place], [place], [id number] Comprehensive Metabolic Prof ilon 01-28-2025 ALK PHOS 79 U/L Normal 35-104 [facility] Comment on above: Performed By: #### L 501.9985, L500.4100, L506.1001, L500.4050, L100.0500, L501.37765, L506.0400, L501.9520 #### [facility] [address] [place], [place], [id number] BUN/CRE 13.1 RATIO Normal 10-20 [facility] Comment on above: Performed By: #### L 501.9985, L500.4100, L506.1001, L500.4050, L100.0500, L501.99187, L506.0400, L501.9520 #### [facility] [address] [place], [place], [id number] GAP 11 Normal 5-15 [facility] Comment on above: Performed By: #### L 501.9985, L500.4100, L506.1001, L500.4050, L100.0500, L501.23714, L506.0400, L501.9520 #### [facility] [address] [place], [address] Potassium [Moles/Vol] 4.3 mmol/L Normal 3.3-5.1 [facility] Comment on above: Performed By: #### L 501.9985, L500.4100, L506.1001, L500.4050, L100.0500, L501.36465, L506.0400, L501.9520 #### [facility] [address] [place], [place], [id number] T PROT 7.6 g/dL Normal 5.9-8.4 [facility] Comment on above: Performed By: #### L 501.9985, L500.4100, L506.1001, L500.4050, L100.0500, L501.91376, L506.0400, L501.9520 #### [facility] [address] [place], [place], [id number] Comprehensive Metabolic Prof ilOrdered By: Ifeoma Harris on 01-28-2025 AST [Catalytic activity/Vol] 24 U/L Normal <=31 [facility] Comment on above: Performed By: #### L 501.9985, L500.4100, L506.1001, L500.4050, L100.0500, L501.46521, L506.0400, L501.9520 #### [facility] [address] [place], [place], [address] Free Q3Hktutys By: Ifeoma moser on 01-28-2025 Free T3 [Mass/Vol] 2.8 pg/mL Normal 2.18-3.98 [facility] Comment on above: Performed By: #### L 501.9985, L500.4100, L506.1001, L500.4050, L100.0500, L501.02529, L506.0400, L501.9520 #### [facility] [address] [place], [place], [address] Glomerular filtration rate ( GFR) estimation/1.73 sq m using serum, plasma, or whole bOrdered By: Ifeoma Harris on 01-28-2025 GFR/1.73 sq M.predicted among non-blacks MDRD (S/P/Bld) [Vol rate/Area] 65 mL/min/{1.73_m2} Normal >60 [facility] Comment on above: mL/min/1.73m2 CKD-EP I Creatinine Equation (2020) Result Comment: mL/m in/1.73m2 CKD-EPI Creatinine Equation (2020) Performed By: #### L 501.9985, L500.4100, L506.1001, L500.4050, L100.0500, L501.31785, L506.0400, L501.9520 #### [facility] [address], [place], [phone] (755) Hemoglobin A1con 01-28-2025 HbA1c (Bld) [Mass fraction] 7.7 % High <=5.6 [facility] Comment on above: Result Comment: Norm al < 5.7 % Prediabetic 5.7 - 6.4 % Diabetic >or= 6.5 % Please note range changes. Performed By: #### L 501.9520, L503.6550, L3500.0000, L500.4100, L500.4050, L506.0400, L501.9985, L501.53632, L503.6030, L502.0250 #### [facility] [address], [place], [id number] Hemoglobin A1c percentageOrd ered By: Ifeoma Harris on 01-28-2025 HbA1c (Bld) [Mass fraction] 7.7 % High <5.7 [facility] Comment on above: Normal < 5.7 % Predi abetic 5.7 - 6.4 % Diabetic >or= 6.5 % Please note range changes. High density lipoprotein (HD L) particle measurement by nuclear magnetic resonance (NMOrdered By: Ifeoma Harris on 01-28-2025 High density lipoprotein (HDL) particle measurement by nuclear magnetic resonance (NM 35.1 umol/L >=30.5 [facility] Iron measurement (mass/mass) Ordered By: Ifeoma Harris on 01-28-2025 Iron (Unsp spec) [Mass/Mass] 55 ug/dL 50-170 [facility] Iron+Iron Binding Capacityon 01-28-2025 Iron [Mass/Vol] 55 ug/dL Normal 50-170 [facility] Comment on above: Performed By: #### L 501.9985, L500.4100, L506.1001, L500.4050, L100.0500, L501.64184, L506.0400, L501.9520 #### [facility] [address] [place], [address] IRON SATURATION 18.0 Normal 13-59 [facility] Comment on above: Performed By: #### L 501.9985, L500.4100, L506.1001, L500.4050, L100.0500, L501.14704, L506.0400, L501.9520 #### [facility] [address] [place], [address] TIBC 309 ug/dL Normal 250-450 [facility] Comment on above: Performed By: #### L 501.9985, L500.4100, L506.1001, L500.4050, L100.0500, L501.46575, L506.0400, L501.9520 #### [facility] [address] [place], [address] UIBC 254 ug/dL Normal 228-428 [facility] Comment on above: Performed By: #### L 501.9985, L500.4100, L506.1001, L500.4050, L100.0500, L501.42610, L506.0400, L501.9520 #### [facility] [address] [place], [place], [address] Lipid Profileon 01-28-2025 CHOL:HDL 2.53 Normal [facility] Comment on above: Performed By: #### L 501.9985, L500.4100, L506.1001, L500.4050, L100.0500, L501.12562, L506.0400, L501.9520 #### [facility] [address] [place], [place], [id number] Cholesterol in HDL [Mass/Vol] 76 mg/dL Normal [facility] Comment on above: Result Comment: Flor onal Cholesterol Education Program (NCEP) guidelines: <40 mg/dL: Low HDL-cholesterol (major risk factor for CHD) >= 60 mg/dL: High HDL-cholesterol (negative risk factor for CHD) HDL-cholesterol is affected by a number of factors, e.g. smoking, exercise, hormones, sex and age. Performed By: #### L 501.9985, L500.4100, L506.1001, L500.4050, L100.0500, L501.95129, L506.0400, L501.9520 #### [facility] [address] [place], [place], [address] Cholesterol in LDL [Mass/Vol] 101 mg/dL Normal [facility] Comment on above: Result Comment: Bord yqcugb=723-485 mg/dL Higher Bzns=988 mg/dL or greater Performed By: #### L 501.9985, L500.4100, L506.1001, L500.4050, L100.0500, L501.03622, L506.0400, L501.9520 #### [facility] [address] [place], [place], [phone] Cholesterol in VLDL [Mass/Vol] 15 mg/dL Normal 5-40 [facility] Comment on above: Performed By: #### L 501.9985, L500.4100, L506.1001, L500.4050, L100.0500, L501.64901, L506.0400, L501.9520 #### [facility] [address] [place], [address] Microalb:Creat Ratio,Random URon 01-28-2025 Creatinine [Mass/Vol] 244.00 mg/dL High 28.00- 217. 00 [facility] Comment on above: Performed By: #### L 501.9520, L503.6550, L3500.0000, L500.4100, L500.4050, L506.0400, L501.9985, L501.31845, L503.6030, L502.0250 #### [facility] [address] [place], [address] MALB:CREAT UNABLE TO CALCULATE Normal [facility] Comment on above: Performed By: #### L 501.9520, L503.6550, L3500.0000, L500.4100, L500.4050, L506.0400, L501.9985, L501.89650, L503.6030, L502.0250 #### [facility] [address] [place], [place], [id number] MICROALBUMIN,UR < 12.0 Normal NO RANGE EST. [facility] Comment on above: Performed By: #### L 501.9520, L503.6550, L3500.0000, L500.4100, L500.4050, L506.0400, L501.9985, L501.64116, L503.6030, L502.0250 #### [facility] [address] [place], [address] Microalbumin/creat ratio urO rdered By: Ifeoma Harris on 01-28-2025 Urine microalbumin/creatinin e ratio measurement UNABLE TO CALCULATE mg/g CRE [facility] No Panel InformationOrdered By: Ifeoma Harris on 01-28-2025 LDL Cholesterol Particle Number [id number] nmol/L <1000 [facility] Comment on above: Low < 1000 Moderate 1000 - 1299 Borderline-High 1300 - 1599 High 1600 - 2000 Very High > 2000 LDL Cholesterol Particle Size 21.9 nm >20.5 [facility] Comment on above: INTERPRETATIVE INFORMATION PARTICLE CONCENTRATION AND SIZE <--Lower CVD Risk Higher CVD Risk--> LDL AND HDL PARTICLES Percentile in Reference Population HDL-P (total) High 75th 50th 25th Low >34.9 34.9 30.5 26.7 <26.7 Small LDL-P Low 25th 50th 75th High <117 117 527 839 >839 LDL Size <-Large (Pattern A)-> <-Small (Pattern B)-> 23.0 20.6 20.5 19.0 Small LDL-P and LDL Size are associated with CVD risk, butnot after LDL-P is taken into account. LDL Cholesterol, Calculated 97 mg/dL 0-99 [facility] Comment on above: Optimal < 100 Above optimal 100 - 129 Borderline 130 - 159 High 160 - 189 Very high > 189 Unsaturated Iron Binding Capacity 254 ug/dL 228-428 [facility] Potassium measurement (mass/ volume)Ordered By: Ifeoma Harris on 01-28-2025 Potassium (Unsp spec) [Mass/Vol] 4.3 mmol/L 3.3-5.1 [facility] Random urine creatinine danny urement (mass/volume)Ordered By: Ifeoma Harris on 01-28-2025 Creatinine Unsp time (U) [Mass/Vol] 244.00 mg/dL High 28.00-217. 00 [facility] Screening total cholesterol/ high density lipoprotein (HDL) cholesterol ratioOrdered By: Ifeoma Harris on 01-28-2025 Cholesterol.total/Chol esterol in HDL [Mass ratio] 2.53 {ratio} [facility] Serum creatinine measurement (mass/volume)Ordered By: Ifeoma Harris on 01-28-2025 Creatinine [Mass/Vol] 1.08 mg/dL Normal 0.70-1.20 [facility] Comment on above: Performed By: #### L 501.9985, L500.4100, L506.1001, L500.4050, L100.0500, L501.91793, L506.0400, L501.9520 #### [facility] [address] [place], [address] Serum globulin measurementOr dered By: Ifeoma Harris on 01-28-2025 Globulin (S) [Mass/Vol] 3.2 g/dL Normal 2.2-4.2 [facility] Comment on above: Performed By: #### L 501.9985, L500.4100, L506.1001, L500.4050, L100.0500, L501.91911, L506.0400, L501.9520 #### [facility] [address] [place], [address] Serum glucose measurement (m ass/volume)Ordered By: Ifeoma Harris on 01-28-2025 Glucose [Mass/Vol] 133 mg/dL High 70-99 [facility] Comment on above: Performed By: #### L 501.9985, L500.4100, L506.1001, L500.4050, L100.0500, L501.97885, L506.0400, L501.9520 #### [facility] [address] [place], [address] Serum or plasma alanine cabrera otransferase (ALT) measurementOrdered By: Ifeoma Harris on 01-28-2025 ALT [Catalytic activity/Vol] 19 U/L Normal <=34 [facility] Comment on above: Performed By: #### L 501.9985, L500.4100, L506.1001, L500.4050, L100.0500, L501.75519, L506.0400, L501.9520 #### [facility] [address] [place], [place], [id number] Serum or plasma albumin danny urement (mass/volume)Ordered By: Ifeoma Harris on 01-28-2025 Albumin [Mass/Vol] 4.4 g/dL Normal 3.5-5.0 [facility] Comment on above: Performed By: #### L 501.9985, L500.4100, L506.1001, L500.4050, L100.0500, L501.94192, L506.0400, L501.9520 #### [facility] [address] [place], [address] Serum or plasma albumin/glob ulin mass ratioOrdered By: Ifeoma Beattyyassine on 01-28-2025 Albumin/Globulin [Mass ratio] 1.4 {ratio} Normal 0.9-2.4 [facility] Comment on above: Performed By: #### L 501.9985, L500.4100, L506.1001, L500.4050, L100.0500, L501.92205, L506.0400, L501.9520 #### [facility] [address], [place], [address] Serum or plasma alkaline apollo sphatase measurementOrdered By: Ifeoma Harris on 01-28-2025 ALP [Catalytic activity/Vol] 79 U/L 35-104 [facility] Serum or plasma calcium danny urement (mass/volume)Ordered By: [facility] Calcium [Mass/Vol] 9.2 mg/dL Normal 7.6-11.0 [facility] Comment on above: Performed By: #### L 501.9985, L500.4100, L506.1001, L500.4050, L100.0500, L501.33187, L506.0400, L501.9520 #### [facility] [address] [place], [place], [id number] Serum or plasma cholesterol measurement (mass/volume)Ordered By: Ifeoma Harris on 01-28-2025 Cholesterol [Mass/Vol] 192 mg/dL Normal <=200 [facility] Comment on above: Cholesterol level, D esirable <200 mg/dLBorderline high cholesterol 200-239 mg/dLHigh cholesterol >=240 mg/dLRecommendations of the NCEP Adult Treatment Panel for the following risk-cutoff thresholds for the [place] population. Result Comment: Chol esterol level, Desirable <200 mg/dL Borderline high cholesterol 200-239 mg/dL High cholesterol >=240 mg/dL Recommendations of the NCEP Adult Treatment Panel for the following risk-cutoff thresholds for the [place] population. Performed By: #### L 501.9985, L500.4100, L506.1001, L500.4050, L100.0500, L501.45990, L506.0400, L501.9520 #### [facility] [address] [place], [place], [id number] Cholesterol [Mass/Vol] 189 mg/dL 100-199 [facility] Serum or plasma ferritin kwasi surement (mass/volume)Ordered By: Ifeoam Harris on 01-28-2025 Ferritin [Mass/Vol] 29 ng/mL Normal 22-378 [facility] Comment on above: Performed By: #### L 501.9985, L500.4100, L506.1001, L500.4050, L100.0500, L501.78529, L506.0400, L501.9520 #### [facility] [address] [place], [place], [id number] Serum or plasma high density lipoprotein (HDL) cholesterol measurement (mass/volume)Ordered By: Ifeoma Harris on 01-28-2025 Cholesterol in HDL [Mass/Vol] 77 mg/dL >39 [facility] Serum or plasma iron saturat ion measurement (mass fraction)Ordered By: Ifeoma Harris on 01-28-2025 Iron saturation [Mass fraction] 18.0 % 13-59 [facility] Serum or plasma urea nitroge n measurement (mass/volume)Ordered By: Ifeoma Harris on 01-28-2025 Urea nitrogen [Mass/Vol] 14 mg/dL Normal 4-19 [facility] Comment on above: Performed By: #### L 501.9985, L500.4100, L506.1001, L500.4050, L100.0500, L501.84328, L506.0400, L501.9520 #### [facility] [address] [place], [address] Small low density lipoprotei n particle number measurementOrdered By: Ifeoma Harris on 01-28-2025 Lipoprotein.beta.subpa rticle.small [Moles/Vol] 94 nmol/L <=527 [facility] Sodium levelOrdered By: Mar Harris on 01-28-2025 Sodium [Moles/Vol] 137 mmol/L Normal 133-145 [facility] Comment on above: Performed By: #### L 501.9985, L500.4100, L506.1001, L500.4050, L100.0500, L501.19954, L506.0400, L501.9520 #### [facility] [address] [place], [address] T4 Free Directon 01-28-2025 T4 FREE DIRECT 1.90 ng/dL High 0.76-1.46 [facility] Comment on above: Performed By: #### L 501.9985, L500.4100, L506.1001, L500.4050, L100.0500, L501.57864, L506.0400, L501.9520 #### [facility] [address] [place], [address] T4 freeOrdered By: Ifeoma moser on 01-28-2025 Free T4 [Mass/Vol] 1.90 ng/dL High 0.76-1.46 [facility] TSH DL <= 0.005 mIU/L QnOrde red By: Ifeoma Harris on 01-28-2025 TSH Qn 1.100 uIU/mL 0.300-4.20 0 [facility] Thyroid Stim Hormone (TSH)on 01-28-2025 TSH 1.100 uIU/mL Normal 0.300-4.20 0 [facility] Comment on above: Performed By: #### L 501.9985, L500.4100, L506.1001, L500.4050, L100.0500, L501.55705, L506.0400, L501.9520 #### [facility] [address] [place], [address] Total proteinOrdered By: Chris Harris on 01-28-2025 Protein [Mass/Vol] 7.6 g/dL 5.9-8.4 [facility] Triglycerides measurementOrd ered By: Ifeoma Harris on 01-28-2025 Triglyceride [Mass/Vol] 74 mg/dL Normal [facility] Comment on above: The drugs N-Acetylcy steine and Metamizole may falsely depress this assay. Normal range: <150 mg/dLBorderline High: 150-199 mg/dLHigh: 200-499 mg/dLVery High: >500 mg/dL Result Comment: The drugs N-Acetylcysteine and Metamizole may falsely depress this assay. Normal range: <150 mg/dL Borderline High: 150-199 mg/dL High: 200-499 mg/dL Very High: >500 mg/dL Performed By: #### L 501.9985, L500.4100, L506.1001, L500.4050, L100.0500, L501.21363, L506.0400, L501.9520 #### [facility] [address] [place], [address] Urine albumin measurement wi th detection limit of 20 mg/L or less (mass/volume)Ordered By: Ifeoma Harris on 01-28-2025 Albumin DL <= 20 mg/L (U) [Mass/Vol] < 12.0 mg/L NO RANGE EST. [facility] MA MAMMOGRAM DIAGNOSTIC BILA TERAL W/TOMOon 01-25-2025 MA MAMMOGRAM DIAGNOSTIC BILATERAL W/TOM ORIGINAL FROM: [facility] [address] [place] [address] PROCEDURE FOR: REYES BRAGA [address] [place] [address] [place] [address] Home: PID#: [id number] Exam#: [id number] : 1980 Age: 44 TO: DARLENE REYES MD [address] [id number] Fax: NO FAX EXAMINATION: DIAGNOSTIC BILATERAL MAMMOGRAM WITH TOMOSYNTHESIS, 01/25/2025 8:45 am TECHNIQUE: Tomosynthesis was performed as part of the diagnostic bilateral mammogram. 2D standard and 3D tomosynthesis combination imaging performed. Current study was also evaluated with a Computer Aided Detection (CAD) system. COMPARISON: 04/11/2022 HISTORY: ORDERING SYSTEM PROVIDED HISTORY: Reason for Exam: SCAR TISSUE OR LUMPS FINDINGS: BREAST DENSITY: There are scattered areas of fibroglandular density. No significant masses, calcifications, or other findings. IMPRESSION: No mammographic findings to correlate with the patient's palpable lump. Adri Whitfieldzick risk calculations, generated with the history provided, report this patient's 10 year risk and lifetime risk for developing breast cancer at 2.0% and 11.6%, respectively. Based on this assessment tool, if the patient's calculated lifetime risk is below 20%, then the patient is considered at average risk for developing breast cancer. If the patient's calculated lifetime risk is at or above 20%, then the patient is considered high risk for developing breast cancer and may be a candidate for supplemental breast MRI screening in addition to annual mammographic screening per the [place] [employer]. BIRADS: BI-RADS: 0: Incomplete: Need Additional Imaging Evaluation RECALL: immediate RECALL TYPE: US LETTER SENT: Normal-Needs additional work up BI-RADS 0 Interpreted by: Lizett Street MD Preliminary Report By: Lizett Street MD Electronically signed By Lizett Street MD Dictated Date: 01/25/2025 9:24:49 AM Prelim Date: 01/25/2025 12:26:12 PM Sign Date: 01/25/2025 12:26:12 PM Ordering Provider: DARLENE REYES Department Of Sociology Chair: CARMELINA SULLIVAN RT(R)(M) letter sent: Normal-Needs additional work up BI-RADS 0 Mammogram BI-RADS: 0 Indeterminate Normal [facility] US BREAST LEFT LIMITEDon US BREAST LEFT LIMITED ORIGINAL FROM: [facility] [address] [place] [address] PROCEDURE FOR: REYES BRAGA [address] [place] [address] [place] [address] Home: PID#: [id number] Exam#: [id number] : 1980 Age: 44 TO: DARLENE REYES MD [address] [facility] [address] [place] [id number] Fax: NO FAX EXAMINATION: ULTRASOUND OF THE 01/25/2025 8:40 am TECHNIQUE: Color flow and hopson scale targeted ultrasound of the were performed. Permanently stored images were reviewed. COMPARISON: 01/25/2025 mammogram and 04/11/2022 mammogram HISTORY: ORDERING SYSTEM PROVIDED HISTORY: Reason for Exam: SCAR TISSUE OR LUMPS FINDINGS: There are no significant sonographic findings to correlate with the palpable abnormality. IMPRESSION: There are no significant sonographic findings to correlate with the palpable abnormality. Clinical follow up is recommended. The patient may return to annual mammographic screening. Adri Jara risk calculations, generated with the history provided, report this patient's 10 year risk and lifetime risk for developing breast cancer at 2.0% and 11.6%, respectively. Based on this assessment tool, if the patient's calculated lifetime risk is below 20%, then the patient is considered at average risk for developing breast cancer. If the patient's calculated lifetime risk is at or above 20%, then the patient is considered high risk for developing breast cancer and may be a candidate for supplemental breast MRI screening in addition to annual mammographic screening per the [place] [employer]. BIRADS: BI-RADS: 1: Negative RECALL: 1 year screening RECALL TYPE: mammo LETTER SENT: Normal BI-RADS 1 and 2 Interpreted by: Lizett Street MD Preliminary Report By: Lizett Street MD Electronically signed By Lizett Street MD Dictated Date: 01/25/2025 9:47:53 AM Prelim Date: 01/25/2025 12:38:59 PM Sign Date: 01/25/2025 12:38:59 PM Ordering Provider: DARLENE REYES Department Of Sociology Chair: PADMINI DANIELS RT(Braydon)(M), RDMS letter sent: Normal BI-RADS 1 and 2 Ultrasound BI-RADS: 1 Negative Normal [facility] US PELVIS NON-OB W/TRANSVAGI NALon 01-13-2025 US PELVIS NON-OB W/TRANSVAGINAL ORIGINAL EXAMINATION: TRANSVAGINAL PELVIC ULTRASOUND 01/13/2025 TECHNIQUE: Transvaginal pelvic ultrasound was performed. COMPARISON: None available. HISTORY: ORDERING SYSTEM PROVIDED HISTORY: Reason for Exam: menorrhagia, history of fibroids. All images are recorded and archived. FINDINGS: Measurements: Uterus: 7.8 x 3.3 x 4.6 cm Endometrial stripe: 8.5 mm Right Ovary:2.3 x 2.1 x 1.4 cm Left Ovary: 2.4 x 1.5 x 3.1 cm Ultrasound Findings: Uterus: Uterus heterogeneous in echotexture. 3 fundal fibroids are seen. A anterior fundal fibroid measures 1.01 x 1.0 x 1.1 cm. Posterior fundal fibroid measures 0.9 x 1.0 x 0.9 cm. There is a 3rd left fundal fibroid measuring 1.2 x 1.3 x 1.6 cm. Endometrial stripe: Endometrial stripe contains multiple hyperechoic foci in the fundal region which measure 0.6 x 0.4 x 0.7 cm, and 0.5 x 0.4 x 0.4 cm. Appearance may relate to multiple endometrial polyps. Right Ovary: Right ovary is within normal limits. Left Ovary: 1.2 x 1.4 x 1.3 cm simple left ovarian cyst observed. There is appropriate venous and arterial blood flow in both ovaries. Free Fluid: No evidence of free fluid. IMPRESSION: 1. Multiple uterine fibroids. 2. Multiple hyperechoic foci within the fundal region of the endometrial stripe may relate to multiple endometrial polyps. 3. Simple left ovarian cyst 1.4 cm in size. No additional imaging follow-up is warranted. Interpreted by: Qasim Ewing DO Preliminary Report By: Qasim Ewing DO Electronically signed By Qasim Ewing DO Dictated Date: 01/13/2025 10:51:46 AM Prelim Date: 01/13/2025 10:55:27 AM Sign Date: 01/13/2025 10:55:27 AM Ordering Provider: DARLENE Dill [facility] Cerv Spine 4 or 5 Viewson Cerv Spine 4 or 5 Views [facility] [address] [place] [address] [id number] Cerv Spine 4 or 5 Views MR#: [id number] Acct: [id number] Name: REYES BRAGA Rep #: [id number] : 1980 F 43 From: Sebastián Hurt MD PCP: Dr. Angelica Watkins MD Status: REG CLI Study: Cerv Spine 4 or 5 Views Date of Exam: 12/20/24 Exam# [id number] Ordering Dr: Angelica Watkins MD PROCEDURE: CERV SPINE 4 OR 5 VIEWS 12/20/2024 REASON FOR EXAM: CHRONIC NECK PAIN TECHNIQUE: 5 views of the cervical spine. FINDINGS: Vertebrae: No acute fracture. disc spaces: Maintained. Obliques: No neural foraminal stenosis. Alignment: No subluxation. Straightening of the normal lordotic curvature. soft tissues: No prevertebral soft tissue swelling. Other: RAD/Cerv Spine 4 or 5 Views IMPRESSION: Straightening of the normal lordotic curvature possibly from muscular spasm. Disclaimer: Reading Location: [facility] CC: Dr. Angelica Watkins MD Php [employer] Developer: Signed Normal [facility] Anion gap in Serum or Plasma Ordered By: Ifeoma Harris on 10-28-2024 Anion gap [Moles/Vol] 12 mmol/L 5-15 [facility] BUN/creatinine ratioOrdered By: Ifeoma Harris on 10-28-2024 Urea nitrogen/Creatinine [Mass ratio] 14.7 mg/mg 10-20 [facility] Bilirubin, totalOrdered By: Ifeoma Harris on 10-28-2024 Bilirubin [Mass/Vol] 0.55 mg/dL 0.00-1.[address] [facility] CBC-Complete Blood Cnt No Di ffon 10-28-2024 Erythrocyte distribution width (RBC) [Ratio] 13.4 % Normal 11.6-14.6 [facility] Comment on above: Performed By: #### L 501.9985, L500.4100, L506.1001, L500.4050, L100.0500, L501.61722, L506.0400, L501.9520 #### [facility] [address] [place], [address] ( Hematocrit (Bld) [Volume fraction] 40.4 % Normal 37-47 [facility] Comment on above: Performed By: #### L 501.9985, L500.4100, L506.1001, L500.4050, L100.0500, L501.16669, L506.0400, L501.9520 #### [facility] [address] [place], [address] ( Hemoglobin (Bld) [Mass/Vol] 13.0 g/dL Normal 12.0-15.0 [facility] Comment on above: Performed By: #### L 501.9985, L500.4100, L506.1001, L500.4050, L100.0500, L501.25742, L506.0400, L501.9520 #### [facility] [address] [place], [address] MCH (RBC) [Entitic mass] 28.2 pg Normal 27.0-32.0 [facility] Comment on above: Performed By: #### L 501.9985, L500.4100, L506.1001, L500.4050, L100.0500, L501.87555, L506.0400, L501.9520 #### [facility] [address] [place], [address] MCHC (RBC) [Mass/Vol] 32.2 g/dL Normal 32-36 [facility] Comment on above: Performed By: #### L 501.9985, L500.4100, L506.1001, L500.4050, L100.0500, L501.68289, L506.0400, L501.9520 #### [facility] [address] [place], [address] MCV (RBC) [Entitic vol] 87.6 fL Normal 81-99 [facility] Comment on above: Performed By: #### L 501.9985, L500.4100, L506.1001, L500.4050, L100.0500, L501.09994, L506.0400, L501.9520 #### [facility] [address] [place], [address] Platelet mean volume (Bld) [Entitic vol] 10.8 fL Normal 6.2-12.0 [facility] Comment on above: Performed By: #### L 501.9985, L500.4100, L506.1001, L500.4050, L100.0500, L501.70284, L506.0400, L501.9520 #### [facility] [address], [address] Platelets (Bld) [#/Vol] 241 10*3/uL Normal 150-450 [facility] Comment on above: Performed By: #### L 501.9985, L500.4100, L506.1001, L500.4050, L100.0500, L501.14812, L506.0400, L501.9520 #### [facility] [address] [place], [address] RBC (Bld) [#/Vol] 4.61 10*6/uL Normal 4.2-5.4 [facility] Comment on above: Performed By: #### L 501.9985, L500.4100, L506.1001, L500.4050, L100.0500, L501.04651, L506.0400, L501.9520 #### [facility] [address] [place], [address] RDW SD 43.2 fl Normal 35.1-43.9 [facility] Comment on above: Performed By: #### L 501.9985, L500.4100, L506.1001, L500.4050, L100.0500, L501.39147, L506.0400, L501.9520 #### [facility] [address] [place], [address] WBC (Bld) [#/Vol] 6.4 10*3/uL Normal 4.4-11.0 [facility] Comment on above: Performed By: #### L 501.9985, L500.4100, L506.1001, L500.4050, L100.0500, L501.94515, L506.0400, L501.9520 #### [facility] [address] [place], [address] Calculated very low density lipoprotein (VLDL) cholesterol measurementOrdered By: Ifeoma Harris on 10-28-2024 Calculated very low density lipoprotein (VLDL) cholesterol measurement 13 mg/dL [facility] VLDL Cholesterol 13 mg/dL [facility] Carbon dioxide, total [Moles /volume] in Central venous bloodOrdered By: Ifeoma Harris on 10-28-2024 CO2 [Moles/Vol] 22.3 mmol/L 21.0-32.0 [facility] Chloride assayOrdered By: Jayme Harris on 10-28-2024 Chloride [Moles/Vol] 101 mmol/L 98-[address] [facility] Comprehensive Metabolic Prof ilon 10-28-2024 Albumin [Mass/Vol] 4.2 g/dL Normal 3.5-5.0 [facility] Comment on above: Performed By: #### L 501.9985, L500.4100, L506.1001, L500.4050, L100.0500, L501.54694, L506.0400, L501.9520 #### [facility] [address] [place], [place], [id number] Albumin/Globulin [Mass ratio] 1.4 {ratio} Normal 0.9-2.4 [facility] Comment on above: Performed By: #### L 501.9985, L500.4100, L506.1001, L500.4050, L100.0500, L501.87656, L506.0400, L501.9520 #### [facility] [address] [place], [place], [id number] ALK PHOS 74 U/L Normal 35-104 [facility] Comment on above: Performed By: #### L 501.9985, L500.4100, L506.1001, L500.4050, L100.0500, L501.81583, L506.0400, L501.9520 #### [facility] [address] [place], [place], [id number] ALT [Catalytic activity/Vol] 24 U/L Normal <=34 [facility] Comment on above: Performed By: #### L 501.9985, L500.4100, L506.1001, L500.4050, L100.0500, L501.62842, L506.0400, L501.9520 #### [facility] [address] [place], [place], [id number] (199) AST [Catalytic activity/Vol] 30 U/L Normal <=31 [facility] Comment on above: Performed By: #### L 501.9985, L500.4100, L506.1001, L500.4050, L100.0500, L501.57191, L506.0400, L501.9520 #### [facility] [address] [place], [address] Bilirubin [Mass/Vol] 0.55 mg/dL Normal 0.00-1.[address] [facility] Comment on above: Performed By: #### L 501.9985, L500.4100, L506.1001, L500.4050, L100.0500, L501.59094, L506.0400, L501.9520 #### [facility] [address] [place], [address] BUN/CRE 14.7 RATIO Normal 10-20 [facility] Comment on above: Performed By: #### L 501.9985, L500.4100, L506.1001, L500.4050, L100.0500, L501.74940, L506.0400, L501.9520 #### [facility] [address] [place], [address] Calcium [Mass/Vol] 9.2 mg/dL Normal 7.6-11.0 [facility] Comment on above: Performed By: #### L 501.9985, L500.4100, L506.1001, L500.4050, L100.0500, L501.16788, L506.0400, L501.9520 #### [facility] [address] [place], [address] Chloride [Moles/Vol] 101 mmol/L Normal 98-[address] [facility] Comment on above: Performed By: #### L 501.9985, L500.4100, L506.1001, L500.4050, L100.0500, L501.21784, L506.0400, L501.9520 #### [facility] [address] [place], [place], [id number] (808) CO2 [Moles/Vol] 22.3 mmol/L Normal 21.0-32.0 [facility] Comment on above: Performed By: #### L 501.9985, L500.4100, L506.1001, L500.4050, L100.0500, L501.80937, L506.0400, L501.9520 #### [facility] [address] [place], [place], [id number] (146) Creatinine [Mass/Vol] 0.97 mg/dL Normal 0.70-1.20 [facility] Comment on above: Performed By: #### L 501.9985, L500.4100, L506.1001, L500.4050, L100.0500, L501.03869, L506.0400, L501.9520 #### [facility] [address] [place], [place], [id number] GAP 12 Normal 5-15 [facility] Comment on above: Performed By: #### L 501.9985, L500.4100, L506.1001, L500.4050, L100.0500, L501.37104, L506.0400, L501.9520 #### [facility] [address] [place], [place], [phone] GFR/1.73 sq M.predicted among non-blacks MDRD (S/P/Bld) [Vol rate/Area] 75 mL/min/{1.73_m2} Normal >60 [facility] Comment on above: Result Comment: mL/m in/1.73m2 CKD-EPI Creatinine Equation (2020) Performed By: #### L 501.9985, L500.4100, L506.1001, L500.4050, L100.0500, L501.86319, L506.0400, L501.9520 #### [facility] [address] [place], [address] Globulin (S) [Mass/Vol] 3.0 g/dL Normal 2.2-4.2 [facility] Comment on above: Performed By: #### L 501.9985, L500.4100, L506.1001, L500.4050, L100.0500, L501.09354, L506.0400, L501.9520 #### [facility] [address] [place], [address] Glucose [Mass/Vol] 160 mg/dL High 70-99 [facility] Comment on above: Performed By: #### L 501.9985, L500.4100, L506.1001, L500.4050, L100.0500, L501.82982, L506.0400, L501.9520 #### [facility] [address] [place], [address] Potassium [Moles/Vol] 4.3 mmol/L Normal 3.3-5.1 [facility] Comment on above: Performed By: #### L 501.9985, L500.4100, L506.1001, L500.4050, L100.0500, L501.34798, L506.0400, L501.9520 #### [facility] [address] [place], [address] Sodium [Moles/Vol] 135 mmol/L Normal 133-145 [facility] Comment on above: Performed By: #### L 501.9985, L500.4100, L506.1001, L500.4050, L100.0500, L501.27406, L506.0400, L501.9520 #### [facility] [address] [place], [address] T PROT 7.2 g/dL Normal 5.9-8.4 [facility] Comment on above: Performed By: #### L 501.9985, L500.4100, L506.1001, L500.4050, L100.0500, L501.55438, L506.0400, L501.9520 #### [facility] [address] [place], [address] Urea nitrogen [Mass/Vol] 14 mg/dL Normal 4-19 [facility] Comment on above: Performed By: #### L 501.9985, L500.4100, L506.1001, L500.4050, L100.0500, L501.46279, L506.0400, L501.9520 #### [facility] [address] [place], [address] Erythrocyte distribution wid th ratioOrdered By: Ifeoma Harris on 10-28-2024 Erythrocyte distribution width (RBC) [Ratio] 13.4 % 11.6-14.6 [facility] Erythrocyte distribution wid th standard deviationOrdered By: Ifeoma Harris on 10-28-2024 Erythrocyte distribution width (RBC) [Entitic vol] 43.2 fL 35.1-43.9 [facility] Erythrocyte distribution width (RBC) [Ratio] 43.2 fl 35.1-43.9 [facility] Free T3on 10-28-2024 Free T3 [Mass/Vol] 2.6 pg/mL Normal 2.18-3.98 [facility] Comment on above: Performed By: #### L 501.9985, L500.4100, L506.1001, L500.4050, L100.0500, L501.04450, L506.0400, L501.9520 #### [facility] [address] [place], [address] Free M1Gcnanqq By: Ifeoma moser on 10-28-2024 Free T3 [Mass/Vol] 2.6 pg/mL 2.18-3.98 [facility] Free Triiodothyronine (T3) pg/dL 2.6 pg/mL 2.18-3.98 [facility] GFR/1.73 sq M.predicted roderick g non-blacks MDRD (S/P/Bld) [Vol rate/Area]Ordered By: Ifeoma Harris on 10-28-2024 Estimated GFR (MDRD) Non-Af Amer 75 >60 [facility] Comment on above: mL/min/1.73m2 CKD-EP I Creatinine Equation (2020) Glomerular filtration rate ( GFR) estimation/1.73 sq m using serum, plasma, or whole bOrdered By: Ifeoma Harris on 10-28-2024 GFR/1.73 sq M.predicted among non-blacks MDRD (S/P/Bld) [Vol rate/Area] 75 mL/min/{1.73_m2} >60 [facility] Comment on above: mL/min/1.73m2 CKD-EP I Creatinine Equation (2020) Hematocrit Auto (Bld) [Volum e fraction]Ordered By: Ifeomablessing Harris on 10-28-2024 Hematocrit (Bld) [Volume fraction] 40.4 % 37-47 [facility] Hemoglobin A1con 10-28-2024 HbA1c (Bld) [Mass fraction] 7.3 % Normal <=5.6 [facility] Comment on above: Performed By: #### L 501.9985, L500.4100, L506.1001, L500.4050, L100.0500, L501.72144, L506.0400, L501.9520 #### [facility] [address] [place], [address] Hemoglobin A1c percentageOrd ered By: Ifeoma Harris on 10-28-2024 HbA1c (Bld) [Mass fraction] 7.3 % >5.7 [facility] Hemoglobin measurementOrdere d By: Ifeoma Harris on 10-28-2024 Hemoglobin (Bld) [Mass/Vol] 13.0 g/dL 12.0-15.0 [facility] L506.1001on 10-28-2024 Vitamin D 25-OH 24.3 ng/mL Low 30-100 [facility] Comment on above: Result Comment: Crissy min D Status Deficiency: <20 ng/mL (50nmol/L) Insufficiency: 20-30 ng/mL (50-75 nmol/L) Sufficiency: 30-100 ng/mL (75-250 nmol/L) Toxicity: >100 ng/mL (>250 nmol/L) Performed By: #### L 501.9985, L500.4100, L506.1001, L500.4050, L100.0500, L501.24129, L506.0400, L501.9520 #### [facility] [address] [address] [place], [address] LDL calc ser/plasOrdered By: Ifeoma Harris on 10-28-2024 Cholesterol in LDL [Mass/Vol] 121 mg/dL [facility] Comment on above: Zrhbuscnrm=150-975 m g/dL & Higher Tkmb=716 mg/dL or greater LDL Cholesterol, Calculated 121 mg/dL [facility] Comment on above: Wjxwxbjoej=962-663 m g/dL & Higher Kblp=747 mg/dL or greater Laboratory - Chemistry and C hemistry - challengeOrdered By: Ifeoma Harris on 10-28-2024 AST [Catalytic activity/Vol] 30 U/L <32 [facility] Lipid Profileon 10-28-2024 CHOL:HDL 2.58 Normal [facility] Comment on above: Performed By: #### L 501.9985, L500.4100, L506.1001, L500.4050, L100.0500, L501.14705, L506.0400, L501.9520 #### [facility] [address] [place] [place], [address] Cholesterol [Mass/Vol] 219 mg/dL High <=200 [facility] Comment on above: Result Comment: Chol esterol level, Desirable <200 mg/dL Borderline high cholesterol 200-239 mg/dL High cholesterol >=240 mg/dL Recommendations of the NCEP Adult Treatment Panel for the following risk-cutoff thresholds for the [place] population. Performed By: #### L 501.9985, L500.4100, L506.1001, L500.4050, L100.0500, L501.35445, L506.0400, L501.9520 #### [facility] [address] [place], [address] Cholesterol in HDL [Mass/Vol] 85 mg/dL Normal [facility] Comment on above: Result Comment: Flor onal Cholesterol Education Program (NCEP) guidelines: <40 mg/dL: Low HDL-cholesterol (major risk factor for CHD) >= 60 mg/dL: High HDL-cholesterol (negative risk factor for CHD) HDL-cholesterol is affected by a number of factors, e.g. smoking, exercise, hormones, sex and age. Performed By: #### L 501.9985, L500.4100, L506.1001, L500.4050, L100.0500, L501.80357, L506.0400, L501.9520 #### [facility] [address] [place], [address] Cholesterol in LDL [Mass/Vol] 121 mg/dL Normal [facility] Comment on above: Result Comment: Bord fgbkqy=142-696 mg/dL Higher Suup=890 mg/dL or greater Performed By: #### L 501.9985, L500.4100, L506.1001, L500.4050, L100.0500, L501.04701, L506.0400, L501.9520 #### [facility] [address] [place], [address] Cholesterol in VLDL [Mass/Vol] 13 mg/dL Normal 5-40 [facility] Comment on above: Performed By: #### L 501.9985, L500.4100, L506.1001, L500.4050, L100.0500, L501.10886, L506.0400, L501.9520 #### [facility] [address] [place], [place], [id number] Triglyceride [Mass/Vol] 65 mg/dL Normal [facility] Comment on above: Result Comment: The drugs N-Acetylcysteine and Metamizole may falsely depress this assay. Normal range: <150 mg/dL Borderline High: 150-199 mg/dL High: 200-499 mg/dL Very High: >500 mg/dL Performed By: #### L 501.9985, L500.4100, L506.1001, L500.4050, L100.0500, L501.64465, L506.0400, L501.9520 #### [facility] [address] [place], [place], [id number] MCV (mean corpuscular volume ) determinationOrdered By: Ifeoma Harris on 10-28-2024 MCV (RBC) [Entitic vol] 87.6 fL 81-99 [facility] Mean corpuscular hemoglobin (MCH) determinationOrdered By: Ifeoma Harris on 10-28-2024 MCH (RBC) [Entitic mass] 28.2 pg 27.0-32.0 [facility] Mean corpuscular hemoglobin concentration (MCHC) determinationOrdered By: Ifeoma Harris on 10-28-2024 MCHC (RBC) [Mass/Vol] 32.2 g/dL 32-36 [facility] Mean platelet volume determi nationOrdered By: Ifeoma Harris on 10-28-2024 Platelet mean volume (Bld) [Entitic vol] 10.8 fL 6.2-12.0 [facility] Platelet countOrdered By: Jayme Harris on 10-28-2024 Platelets (Bld) [#/Vol] 241 10*3/uL 150-450 [facility] Potassium (Unsp spec) [Mass/ Vol]Ordered By: Ifeoma Harris on 10-28-2024 Potassium [Moles/Vol] 4.3 mmol/L 3.3-5.1 [facility] Potassium measurement (mass/ volume)Ordered By: Ifeoma Harris on 10-28-2024 Potassium (Unsp spec) [Mass/Vol] 4.3 mmol/L 3.3-5.1 [facility] RBC Auto (Bld) [#/Vol]Ordere d By: Ifeoma Harris on 10-28-2024 RBC (Bld) [#/Vol] 4.61 10*6/uL 4.2-5.4 [facility] Screening total cholesterol/ high density lipoprotein (HDL) cholesterol ratioOrdered By: Ifeoma Harris on 10-28-2024 Cholesterol.total/Chol esterol in HDL [Mass ratio] 2.58 {ratio} [facility] Serum creatinine measurement (mass/volume)Ordered By: Ifeoma Harris on 10-28-2024 Creatinine [Mass/Vol] 0.97 mg/dL 0.70-1.20 [facility] Serum globulin measurementOr dered By: Ifeoma Harris on 10-28-2024 Globulin (S) [Mass/Vol] 3.0 g/dL 2.2-4.2 [facility] Serum glucose measurement (m ass/volume)Ordered By: Ifeoma Harris on 10-28-2024 Glucose [Mass/Vol] 160 mg/dL High 70-99 [facility] Serum or plasma alanine cabrera otransferase (ALT) measurementOrdered By: Ifeoma Harris on 10-28-2024 ALT [Catalytic activity/Vol] 24 U/L <35 [facility] Serum or plasma albumin danny urement (mass/volume)Ordered By: Ifeoma Harris on 10-28-2024 Albumin [Mass/Vol] 4.2 g/dL 3.5-5.0 [facility] Serum or plasma albumin/glob ulin mass ratioOrdered By: Ifeoma Harris on 10-28-2024 Albumin/Globulin [Mass ratio] 1.4 {ratio} 0.9-2.4 [facility] Serum or plasma alkaline apollo sphatase measurementOrdered By: Ifeoma Harris on 10-28-2024 ALP [Catalytic activity/Vol] 74 U/L 35-104 [facility] Serum or plasma calcium danny urement (mass/volume)Ordered By: Ifeoma Harris on 10-28-2024 Calcium [Mass/Vol] 9.2 mg/dL 7.6-11.0 [facility] Serum or plasma cholesterol in HDL measurement (mass/volume)Ordered By: Ifeoma Harris on 10-28-2024 Cholesterol in HDL [Mass/Vol] 85 mg/dL >40 [facility] Comment on above: National Cholesterol Education Program (NCEP) guidelines:<40 mg/dL: Low HDL-cholesterol (major risk factor for CHD)>= 60 mg/dL: High HDL-cholesterol (negative risk factor for CHD)HDL-cholesterol is affected by a number of factors, e.g. smoking, exercise, hormones, sex and age. Serum or plasma cholesterol measurement (mass/volume)Ordered By: Ifeoma Harris on 10-28-2024 Cholesterol [Mass/Vol] 219 mg/dL High <201 [facility] Comment on above: Cholesterol level, D esirable <200 mg/dLBorderline high cholesterol 200-239 mg/dLHigh cholesterol >=240 mg/dLRecommendations of the NCEP Adult Treatment Panel for the following risk-cutoff thresholds for the [place] population. Serum or plasma urea nitroge n measurement (mass/volume)Ordered By: Ifeoma Harris on 10-28-2024 Urea nitrogen [Mass/Vol] 14 mg/dL 4-19 [facility] Sodium levelOrdered By: Mar Harris on 10-28-2024 Sodium [Moles/Vol] 135 mmol/L 133-145 [facility] T4 Free Directon 10-28-2024 T4 FREE DIRECT 1.50 ng/dL High 0.76-1.46 [facility] Comment on above: Performed By: #### L 501.9985, L500.4100, L506.1001, L500.4050, L100.0500, L501.62640, L506.0400, L501.9520 #### [facility] [address] [place], [address] T4 freeOrdered By: Ifeoma moser on 10-28-2024 Free T4 [Mass/Vol] 1.50 ng/dL High 0.76-1.46 [facility] TSH DL <= 0.005 mIU/L QnOrde red By: Ifeoma Harris on 10-28-2024 Thyroid Stimulating Hormone (TSH) 2.620 uIU/mL 0.300-4.20 0 [facility] TSH Qn 2.620 uIU/mL 0.300-4.20 0 [facility] Thyroid Stim Hormone (TSH)on 10-28-2024 TSH 2.620 uIU/mL Normal 0.300-4.20 0 [facility] Comment on above: Performed By: #### L 501.9985, L500.4100, L506.1001, L500.4050, L100.0500, L501.63163, L506.0400, L501.9520 #### [facility] [address] [place], [place], [id number] Total proteinOrdered By: Chris Harris on 10-28-2024 Protein [Mass/Vol] 7.2 g/dL 5.9-8.4 [facility] Triglycerides measurementOrd ered By: Ifeoma Harris on 10-28-2024 Triglyceride [Mass/Vol] 65 mg/dL <199 [facility] Comment on above: The drugs N-Acetylcy steine and Metamizole may falsely depress this assay. Normal range: <150 mg/dLBorderline High: 150-199 mg/dLHigh: 200-499 mg/dLVery High: >500 mg/dL Vitamin D, 25-hydroxyOrdered By: Ifeoma Harris on 10-28-2024 Vitamin D 25-Hydroxy 24.3 ng/mL Low 30-[address] [facility] Comment on above: Vitamin D StatusDefi ciency: <20 ng/mL (50nmol/L)Insufficiency: 20-30 ng/mL (50-75 nmol/L)Sufficiency: 30-100 ng/mL (75-250 nmol/L)Toxicity: >100 ng/mL (>250 nmol/L) White blood cell (WBC) count Ordered By: Ifeoma Harris on 10-28-2024 WBC (Bld) [#/Vol] 6.4 10*3/uL 4.4-11.0 [facility] Telephone Encounteron 2023 [employer] In[employer] Authentication Interface Message Text Rx's sent. Pt also needs appt with pcp. Normal [facility] [id number] 06-12-2024 VIT D,25 HYDROX Normal [facility] Comment on above: Result Comment: TEST RESULTS LIMITS Vitamin D, 25-Hydroxy 32.2 ng/mL 30.0-100.0 Vitamin D deficiency has been defined by the [place] of [employer] and an Endocrine Society practice guideline as a level of serum 25-OH vitamin D less than 20 ng/mL (1,2). The Endocrine Society went on to further define vitamin D insufficiency as a level between 21 and 29 ng/mL (2). 1. IOM ([place] of Medicine). 2010. Dietary reference intakes for calcium and D. [place]: The National Academies Press. 2. Lucrecia MF, Nakia NC, Kimi AGUILAR, et al. Evaluation, treatment, and prevention of vitamin D deficiency: an Endocrine Society clinical practice guideline. JCEM. 2011 Feb; 96(7):1911-30. TESTING PERFORMED AT [facility]. ORIGINAL REPORT ON FILE IN LAB CONTAINS ADDITIONAL TEST SITE INFORMATION. Performed By: #### L 501.9985, L500.4100, L506.1001, L500.4050, L100.0500, L501.63560, L506.0400, L501.9520 #### [facility] [address] [place], [place], [address] CBC-Complete Blood Cnt No Di ffon 06-08-2024 Erythrocyte distribution width (RBC) [Ratio] 13.2 % Normal 11.6-14.6 [facility] Comment on above: Performed By: #### L 501.9985, L500.4100, L506.1001, L500.4050, L100.0500, L501.05700, L506.0400, L501.9520 #### [facility] [address] [place], [address] Hematocrit (Bld) [Volume fraction] 41.2 % Normal 37-47 [facility] Comment on above: Performed By: #### L 501.9985, L500.4100, L506.1001, L500.4050, L100.0500, L501.48839, L506.0400, L501.9520 #### [facility] [address] [place], [address] Hemoglobin (Bld) [Mass/Vol] 13.2 g/dL Normal 12.0-15.0 [facility] Comment on above: Performed By: #### L 501.9985, L500.4100, L506.1001, L500.4050, L100.0500, L501.96679, L506.0400, L501.9520 #### [facility] [address] [place], [address] MCH (RBC) [Entitic mass] 28.2 pg Normal 27.0-32.0 [facility] Comment on above: Performed By: #### L 501.9985, L500.4100, L506.1001, L500.4050, L100.0500, L501.69564, L506.0400, L501.9520 #### [facility] [address] [facility] [place], [address] MCHC (RBC) [Mass/Vol] 32.0 g/dL Normal 32-36 [facility] Comment on above: Performed By: #### L 501.9985, L500.4100, L506.1001, L500.4050, L100.0500, L501.10796, L506.0400, L501.9520 #### [facility] [address] [place], [address] MCV (RBC) [Entitic vol] 88.0 fL Normal 81-99 [facility] Comment on above: Performed By: #### L 501.9985, L500.4100, L506.1001, L500.4050, L100.0500, L501.21319, L506.0400, L501.9520 #### [facility] [address], [address] Platelet mean volume (Bld) [Entitic vol] 11.3 fL Normal 6.2-12.0 [facility] Comment on above: Performed By: #### L 501.9985, L500.4100, L506.1001, L500.4050, L100.0500, L501.10674, L506.0400, L501.9520 #### [facility] [address] [place], [address] Platelets (Bld) [#/Vol] 236 10*3/uL Normal 150-450 [facility] Comment on above: Performed By: #### L 501.9985, L500.4100, L506.1001, L500.4050, L100.0500, L501.73634, L506.0400, L501.9520 #### [facility] [address] [place], [address] RBC (Bld) [#/Vol] 4.68 10*6/uL Normal 4.2-5.4 [facility] Comment on above: Performed By: #### L 501.9985, L500.4100, L506.1001, L500.4050, L100.0500, L501.71374, L506.0400, L501.9520 #### [facility] [address] [place], [address] RDW SD 42.7 fl Normal 35.1-43.9 [facility] Comment on above: Performed By: #### L 501.9985, L500.4100, L506.1001, L500.4050, L100.0500, L501.38279, L506.0400, L501.9520 #### [facility] [address] [place], [address] WBC (Bld) [#/Vol] 8.8 10*3/uL Normal 4.4-11.0 [facility] Comment on above: Performed By: #### L 501.9985, L500.4100, L506.1001, L500.4050, L100.0500, L501.80619, L506.0400, L501.9520 #### [facility] [address] [place], [address] [facility] 06-08-2024 Albumin [Mass/Vol] 3.9 g/dL Normal 3.2-5.0 [facility] Comment on above: Performed By: #### L 501.9985, L500.4100, L506.1001, L500.4050, L100.0500, L501.89148, L506.0400, L501.9520 #### [facility] [address] [place], [address] Albumin/Globulin [Mass ratio] 1.1 {ratio} Normal 0.9-2.4 [facility] Comment on above: Performed By: #### L 501.9985, L500.4100, L506.1001, L500.4050, L100.0500, L501.60382, L506.0400, L501.9520 #### [facility] [address] [place], [address] ALK P 78 U/L Normal 45-117 [facility] Comment on above: Performed By: #### L 501.9985, L500.4100, L506.1001, L500.4050, L100.0500, L501.15035, L506.0400, L501.9520 #### [facility] [address] [place], [address] ALT [Catalytic activity/Vol] 23 U/L Normal 13-56 [facility] Comment on above: Performed By: #### L 501.9985, L500.4100, L506.1001, L500.4050, L100.0500, L501.95520, L506.0400, L501.9520 #### [facility] [address] [place], [place], [id number] (324) AST [Catalytic activity/Vol] 23 U/L Normal 15-37 [facility] Comment on above: Performed By: #### L 501.9985, L500.4100, L506.1001, L500.4050, L100.0500, L501.61933, L506.0400, L501.9520 #### [facility] [address] [place], [address] Bilirubin [Mass/Vol] 0.60 mg/dL Normal 0.20-1.[address] [facility] Comment on above: Result Comment: For patients on eltrombopag therapy, use of Dimension [place] TBIL is not recommended. Performed By: #### L 501.9985, L500.4100, L506.1001, L500.4050, L100.0500, L501.37885, L506.0400, L501.9520 #### [facility] [address] [place], [address] BUN/CRE 11.9 RATIO Normal 10-20 [facility] Comment on above: Performed By: #### L 501.9985, L500.4100, L506.1001, L500.4050, L100.0500, L501.19245, L506.0400, L501.9520 #### [facility] [address] [place], [address] CA,Total 9.1 mg/dL Normal 8.5-10.1 [facility] Comment on above: Performed By: #### L 501.9985, L500.4100, L506.1001, L500.4050, L100.0500, L501.93429, L506.0400, L501.9520 #### [facility] [address] [place], [address] Chloride [Moles/Vol] 102 mmol/L Normal 98-[address] [facility] Comment on above: Performed By: #### L 501.9985, L500.4100, L506.1001, L500.4050, L100.0500, L501.35260, L506.0400, L501.9520 #### [facility] [address] [place], [address] CO2 [Moles/Vol] 22.0 mmol/L Normal 21.0-32.0 [facility] Comment on above: Performed By: #### L 501.9985, L500.4100, L506.1001, L500.4050, L100.0500, L501.48564, L506.0400, L501.9520 #### [facility] [address] [place], [address] Creatinine [Mass/Vol] 1.09 mg/dL High 0.55-1.02 [facility] Comment on above: Result Comment: The validity of the calculated GFR GFRAA in patients over 70 years has not been determined. Clinical correlation is essential. Performed By: #### L 501.9985, L500.4100, L506.1001, L500.4050, L100.0500, L501.15185, L506.0400, L501.9520 #### [facility] [address] [place], [address] EST GFR - AA 70 mL/min Normal >60 [facility] Comment on above: Result Comment: Afri can Turkish GFR Calc Performed By: #### L 501.9985, L500.4100, L506.1001, L500.4050, L100.0500, L501.55478, L506.0400, L501.9520 #### [facility] [address] [place], [address] GAP 8 Normal 5-15 [facility] Comment on above: Performed By: #### L 501.9985, L500.4100, L506.1001, L500.4050, L100.0500, L501.75772, L506.0400, L501.9520 #### [facility] [address] [place], [address] GFR/1.73 sq M.predicted among non-blacks MDRD (S/P/Bld) [Vol rate/Area] 58 mL/min/{1.73_m2} Low >60 [facility] Comment on above: Result Comment: Non- GFR Calc Performed By: #### L 501.9985, L500.4100, L506.1001, L500.4050, L100.0500, L501.72849, L506.0400, L501.9520 #### [facility] [address] [place], [address] Globulin (S) [Mass/Vol] 3.7 g/dL Normal 2.2-4.2 [facility] Comment on above: Performed By: #### L 501.9985, L500.4100, L506.1001, L500.4050, L100.0500, L501.64442, L506.0400, L501.9520 #### [facility] [address] [place], [address] Glucose [Mass/Vol] 268 mg/dL High 74-106 [facility] Comment on above: Result Comment: Gluc ose result greater than or equal to 200 mg/dL suggests DIABETES MELLITUS per A.D.A. criteria. Performed By: #### L 501.9985, L500.4100, L506.1001, L500.4050, L100.0500, L501.00893, L506.0400, L501.9520 #### [facility] [address] [place], [address] Potassium [Moles/Vol] 4.0 mmol/L Normal 3.5-5.1 [facility] Comment on above: Performed By: #### L 501.9985, L500.4100, L506.1001, L500.4050, L100.0500, L501.54039, L506.0400, L501.9520 #### [facility] [address] [place], [address] Sodium [Moles/Vol] 132 mmol/L Low 136-145 [facility] Comment on above: Performed By: #### L 501.9985, L500.4100, L506.1001, L500.4050, L100.0500, L501.42611, L506.0400, L501.9520 #### [facility] [address] [place], [address] T PROT 7.6 g/dL Normal 6.4-8.2 [facility] Comment on above: Performed By: #### L 501.9985, L500.4100, L506.1001, L500.4050, L100.0500, L501.04435, L506.0400, L501.9520 #### [facility] [address] [place], [address] Urea nitrogen [Mass/Vol] 13 mg/dL Normal 7-18 [facility] Comment on above: Performed By: #### L 501.9985, L500.4100, L506.1001, L500.4050, L100.0500, L501.01528, L506.0400, L501.9520 #### [facility] [address] [place], [place], [id number] Lipid Profileon 06-08-2024 Cholesterol [Mass/Vol] 209 mg/dL High 200 [facility] Comment on above: Result Comment: <200 mg/dL Desirable 200-240 mg/dL Borderline >240 mg/dL High Risk Performed By: #### L 501.9985, L500.4100, L506.1001, L500.4050, L100.0500, L501.56004, L506.0400, L501.9520 #### [facility] [address] [place], [place], [id number] (826) Cholesterol in HDL [Mass/Vol] 84 mg/dL Normal [facility] Comment on above: Result Comment: The drugs N-Acetylcysteine and Metamizole may falsely depress this assay. Reference Range HDL <40 mg/dL Low HDL Cholesterol HDL >or= 60 mg/dL High HDL Cholesterol Performed By: #### L 501.9985, L500.4100, L506.1001, L500.4050, L100.0500, L501.32629, L506.0400, L501.9520 #### [facility] [address] [place], [place], [id number] (488) Cholesterol in LDL [Mass/Vol] 112 mg/dL Normal 0-130 [facility] Comment on above: Performed By: #### L 501.9985, L500.4100, L506.1001, L500.4050, L100.0500, L501.46126, L506.0400, L501.9520 #### [facility] [address] [place], [place], [id number] Cholesterol in VLDL [Mass/Vol] 13 mg/dL Normal 5-40 [facility] Comment on above: Performed By: #### L 501.9985, L500.4100, L506.1001, L500.4050, L100.0500, L501.07129, L506.0400, L501.9520 #### [facility] [address] [place], [place], [id number] Triglyceride [Mass/Vol] 66 mg/dL Normal [facility] Comment on above: Result Comment: The drugs N-Acetylcysteine and Metamizole may falsely depress this assay. Serum Triglycerides Reference Interval Normal <150 mg/dL Borderline high 150 - 199 mg/dL High 200 - 499 mg/dL Very High > or = 500 mg/dL Performed By: #### L 501.9985, L500.4100, L506.1001, L500.4050, L100.0500, L501.49604, L506.0400, L501.9520 #### [facility] [address] [place], [address] Microalb:Creat Ratio,Random URon 06-08-2024 Creatinine [Mass/Vol] 283.00 mg/dL Normal NO RAN GE EST. [facility] Comment on above: Performed By: #### L 501.9985, L500.4100, L506.1001, L500.4050, L100.0500, L501.84156, L506.0400, L501.9520 #### [facility] [address] [place], [place], [id number] MALB:CRE 8.8 mg/g CRE Normal <30 mg/g CRE [facility] Comment on above: Performed By: #### L 501.9985, L500.4100, L506.1001, L500.4050, L100.0500, L501.49077, L506.0400, L501.9520 #### [facility] [address] [place], [place], [address] MICROALBUMIN,UR 24.8 mg/L Normal NO RANGE EST. [facility] Comment on above: Performed By: #### L 501.9985, L500.4100, L506.1001, L500.4050, L100.0500, L501.75296, L506.0400, L501.9520 #### [facility] [address] [place], [address] Thyroid Stim Hormone (TSH)on 06-08-2024 TSH 3.150 uIU/mL Normal 0.358-3.74 0 [facility] Comment on above: Performed By: #### L 501.9985, L500.4100, L506.1001, L500.4050, L100.0500, L501.13747, L506.0400, L501.9520 #### [facility] [address] [place], [address] Telephone Encounteron 2023 [employer] Art Instructor Authentication Interface Message Text Most recent visit in Endocrinology was on 02/04/2023 with Eris Valdez MD Next appointment in Endocrinology is on 06/02/2024 at 10:00 AM with Cory Pina MD Normal [facility] [facility] Telephone Encounteron 2023 Sound Art Instructor Authentication Interface Message Text Situation: Patient requesting labs be extended from previous provider. Background: Dr. Valdez placed lab orders that expires before her appt with Dr. Pina. She would like to have the blood drawn closer to her appt but they on 02/04/24. She was not able to get an appt until 06/02/24. Assessment: N/a Recommendation: Please call to advise Telephone Information: Normal [facility] [employer] MG MAMMO SCREEN BILAT TOM W /CADon 11-11-2023 MG MAMMO SCREEN BILAT TOM W/CAD EXAM: BILATERAL SCREENING MAMMOGRAM W/TOMOSYNTHESIS AND CAD CLINICAL HISTORY: Patient is 42 years old and is seen for screening. The patient has a history of bilateral breast reduction in 1999. The patient has no personal history of cancer. The patient has no family history of breast cancer. COMPARISON: The present examination has been compared to prior imaging studies performed at [facility] on 04/11/2022, and at [facility] on 12/14/2020. TECHNIQUE: The following mammographic views were obtained: bilateral CC, CC with tomosynthesis, MLO and MLO with tomosynthesis. Computer-aided detection was utilized by the radiologist in the interpretation of this examination. MAMMOGRAM FINDINGS: There are scattered areas of fibroglandular densities. No suspicious masses, calcifications, architectural distortion or other abnormalities are seen in either breast. IMPRESSION: There is no mammographic evidence of malignancy in either breast. Routine screening mammogram in 1 year is recommended. BI-RADS Category 1: Negative RISK ASSESSMENT: Estimated lifetime breast cancer risk: Average (less than 15%, as per the Tyrer-Cuzick/KWASI model) NCI Lifetime Risk Score: 10.0% Normal [employer] PFT PER PROTOCOL SERVICE REQ UESTOrdered By: Vishal Kevin on 07-10-2023 DLCOunc-%Pred-Pre 98 % [facility] Work Phone: DLCOunc-Pre 19.85 ml/min/mmH g [facility] Work Phone: DLVA-%Pred-Pre 107 % [facility] Work Phone: DLVA-Pre 5.17 ml/min/mmH g/L [facility] Work Phone: FEV 1 Pre Predicted 2.76 L [facility] Work Phone: FEV1 Post % Change 6 % [facility] Work Phone: FEV1 Post Actual 2.41 L [facility] Work Phone: FEV1 Post/FVC %Change 2 % [facility] Work Phone: FEV1 Post/FVC Actual 84 % [facility] Work Phone: FEV1 Pre Actual 2.24 L [facility] Work Phone: FEV1 Pre LLN 2.19 L [facility] Work Phone: FEV1-%Pred-Post 87 % [facility] Work Phone: FEV1-%Pred-Predicted 81 % [facility] Work Phone: FEV1/FVC Pre LLN 71 % [facility] Work Phone: FEV1/FVC Pre Predicted 82 % [facility] Work Phone: KZS2ONB-Vystdezka 82 % [facility] Work Phone: FVC Post % Change 3 % [facility] Work Phone: FVC Post % Predicted 84 % [facility] Work Phone: FVC Post Actual 2.86 L [facility] Work Phone: [phone] FVC PRE LNN 2.69 L [facility] Work Phone: FVC-%Pred-Predicted 81 % [facility] Work Phone: FVC-Pre Actual 2.74 L [facility] Work Phone: FVC-Pre Predicted 3.38 L [facility] Work Phone: IC Predicted 2.42 L [facility] Work Phone: ICSVC %Prec Pre 84 % [facility] Work Phone: ICSVC Pre 2.04 L [facility] Work Phone: RVPleth-%Pred-Pre 95 % [facility] Work Phone: RVPleth-LLN 0.71 L [facility] Work Phone: RVPleth-Pre 1.19 L [facility] Work Phone: RVTLCPl-%Pred-Pre 115 % [facility] Work Phone: RVTLCPl-LLN 16 % [facility] Work Phone: RVTLCPl-Pre 29 % [facility] Work Phone: TGVPLETH Predicted 2.43 L [facility] Work Phone: TGVPLETH Predicted Pre 81 % [facility] Work Phone: TGVPleth-LLN 1.72 L [facility] Work Phone: TGVPLETH-PRE 1.99 L [facility] Work Phone: TLCPleth-%Pred-Pre 82 % [facility] Work Phone: TLCPleth-LLN 3.99 L [facility] Work Phone: TLCPleth-Pre 4.03 L [facility] Work Phone: VA-%Pred-Pre 78 % [facility] Work Phone: VA-Pre 3.84 L [facility] Work Phone: [facility] Work Phone: PFT PER PROTOCOL SERVICE RE UESTon 07-10-2023 Images from the orig inal result were not included. PULMONARY FUNCTION TESTS: === Adequacy of Test and Effort: Good patient effort and cooperation. The results of this test meet ATS standards. Spirometry: SPIROMETRY: FEV1/FVC ratio is normal and the FEV1 and FVC are both within normal limits. FLOW-VOLUME LOOPS: The flow volume loop appears normal. RESPONSE TO BRONCHODILATOR THERAPY: There is no significant improvement in FEV1 or FVC with bronchodilator therapy. Lung Volumes (Pleth): All lung volumes are within normal limits SVC is decreased Diffusion Capacity (DLCO): DLCO (uncorrected for hemoglobin) is normal. Airway Resistance: Specific airway resistance is normal. Peak Flow: Peak flow = 398 L/min (100% of predicted peak flow) Changes in Pulmonary Function Tests: No prior studies available for comparison. Impression: Overall, pulmonary function tests are consistent with essentially normal findings. Normal pulmonary function does not exclude asthma. If asthma is a clinical concern, then a methacholine challenge could be considered. Beatrice Lambert MD Division of Pulmonary & Critical Care Medicine [facility] I have reviewed this study and agree with this interpretation. Dr. Vishal Kevin Director, [facility] Division of Pulmonary, Critical Care and Sleep Medicine [facility] interventional tech [facility] Study observation (narrative) [facility] CBC panel Auto (Bld)on 05-26 Erythrocyte distribution width (RBC) [Ratio] 14.1 % 11.5 - 14.5 % [facility] Hematocrit (Bld) [Volume fraction] 42.8 % 36.0 - 46.0 % [facility] Hemoglobin (Bld) [Mass/Vol] 14.0 g/dL 12.0 - 15.0 g/dL [facility] Interpretation and review of laboratory results Normal [facility] MCH (RBC) [Entitic mass] 28.5 pg 26.0 - 34.0 pg [facility] MCHC (RBC) [Mass/Vol] 32.7 g/dL 32.0 - 35.9 g/dL [facility] MCV (RBC) [Entitic vol] 87 fL 80 - 100 fL [facility] Platelet mean volume (Bld) [Entitic vol] 9.6 fL 7.5 - 11.2 fL [facility] Platelets (Bld) [#/Vol] 246 10*3/uL 150 - 400 K/uL [facility] RBC (Bld) [#/Vol] 4.90 10*6/uL [facility] WBC (Bld) [#/Vol] 5.6 10*3/uL 4.5 - 11.5 K/uL [facility] TSHon 05-26-2023 Interpretation and review of laboratory results Normal [facility] TSH Qn 2.731 m[IU]/L [facility] Comment on above: Referance range for women as applicable: First Trimester: 0. 050 to 3.700 uIU/mL Second Trimester: 0. 310 to 4.350 uIU/mL Third Trimester: 0. 410 to 5.180 uIU/mL [facility] Guidance for placement of needle in Unspecified body regionon 12-30-2022 Time Out The date was 12/06/2022. [facility] Radiology Study observation (narrative) [facility] Diabetes tracking panelOrder ed By: Elfego Nassar on 11-20-2022 Average glucose Estimated from glycated hemoglobin (Bld) [Mass/Vol] 174 mg/dL [facility] HbA1c (Bld) [Mass fraction] 7.7 % High 4.0 - 5.6 % [facility] Interpretation and review of laboratory results Abnormal [facility] Basic metabolic 2000 panelon 11-19-2022 Anion gap [Moles/Vol] 14 mmol/L 10 - 20 [facility] Calcium [Mass/Vol] 9.3 mg/dL 8.4 - 10. 4 mg/dL [facility] Chloride [Moles/Vol] 103 mmol/L 97 - 11 1 mmol/L [facility] CO2 [Moles/Vol] 23 mmol/L 21 - 30 mmol/L [facility] Creatinine [Mass/Vol] 1.03 mg/dL 0.50 - 1.10 mg/dL [facility] GFR/1.73 sq M.predicted MDRD (S/P/Bld) [Vol rate/Area] 70 mL/min/{1.73_m2} - PINF [facility] Comment on above: 2020 CKD EPI Equatio n using Creatinine without Race Comment: Estimated glomerular filtration rate (eGFR) is calculated without a race coefficient. Values should be interpreted in the context of the patient's full clinical presentation. Reference: 1. Alfredo C, Jin M, Hari DC, et al.. A Unifying Approach for GFR Estimation: Recommendations of the NKF-ASN Task Force on Reassessing the Inclusion of Race in Diagnosing Kidney Disease. [place] Journal of Kidney Diseases 202;79(2):268-88.e1. 2. N Engl J Med 1 Vol. 385 Issue 19 Pages 7193-7673 Glucose [Mass/Vol] 127 mg/dL High 68 - 110 mg/dL [facility] Interpretation and review of laboratory results Abnormal [facility] Potassium [Moles/Vol] 4.0 mmol/L 3.3 - 5.3 mmol/L [facility] Sodium [Moles/Vol] 136 mmol/L 135 - 148 mmol/L [facility] Urea nitrogen [Mass/Vol] 14 mg/dL 8 - 22 mg/dL [facility] C-PEPTIDE, SERUMon 3 C peptide [Mass/Vol] 0.10 ng/mL Low 0.81 - 3.85 ng/mL [facility] Interpretation and review of laboratory results Abnormal [facility] DDI SCREENING MAMMon 021 DDI SCREENING MAMM *FINAL Date of Service: 12/14/2020 09:58 Adm #: [id number] Reading Dr:WAQAR HARPER Signoff Dr: WAQAR HARPER PROCEDURE: DDI SCREENING MAMM - WMM 5024 REASON FOR EXAM: Z12.31 SCREENING ROBE RESULT: CLINICAL HISTORY: Screening COMPARISON: None TECHNIQUE: Multiple views of the bilateral breasts were obtained. Computer-aided detection (CAD) was utilized. 3-D Tomosynthesis was utilized for this examination with tomosynthesis images obtained in both the CC and MLO projections. FINDINGS: There are scattered fibroglandular densities. Benign calcifications of the breasts are noted bilaterally. There are no masses, pathologic microcalcifications, or other secondary signs of breast carcinoma. Tyrer Cuzick calculations report this patient's 10-year risk for developing breast cancer at 1.4% and lifetime risk at 12.5%. IMPRESSION: BI-RADS CATEGORY 2- Benign Findings. The [place] [employer] recommends annual screening mammography for women starting at age 40. The [place] [employer] Society recommends screening breast MRI in certain high-risk women, and the ACR and Society of Breast Imaging endorse those recommendations. Screening MRI is recommended in women with BRCA gene mutations and their untested first-degree relatives as well as women with a lifetime risk of breast cancer of 20% or greater. [id number] This report has been produced using speech recognition. Patient was entered into a reminder system and will receive a notification with a target date for their next exam. The [place] [employer] recommends annual screening mammography for women starting at age 40. Annual screening mammography and supplemental MRI is recommended in women with a lifetime risk of breast cancer of 20% or greater. Original Interpreting Physician: WAQAR HARPER MD Original Transcribed by/Date: PSCB Dec 14 2020 12:46P Original Electronically Signed by/Date: WAQAR HARPER MD Dec 14 2020 12:46P Addendum Interpreting Physician: Addendum Transcribed by/Date: NO ADDENDUM Addendum Electronically Signed by/Date: [facility] TESTOSTERONE, TOT/FRon 11-28 Testosterone [Mass/Vol] 15 ng/dL [facility] Comment on above: Result Comment: Reference range: 8 to 60 Unit: ng/dL ADDITIONAL INFORMATION Testing performed by Liquid Chromatography-Tandem Mass Spectrometry (LC-MS/MS). This test was developed and its performance characteristics determined by [facility] in a manner consistent with CLIA requirements. This test has not been cleared or approved by the U.S. Food and Drug Administration. Performed By: #### T FTEST #### [facility] [id number] [place] [address] TESTOSTERONE, FREE 0.18 [facility] Comment on above: Result Comment: Reference range: 0.06 to 1.00 Unit: ng/dL ADDITIONAL INFORMATION Testing performed by [facility]. This test was developed and its performance characteristics determined by [facility] in a manner consistent with CLIA requirements. This test has not been cleared or approved by the U.S. Food and Drug Administration. Performed at the [facility] unless otherwise noted. Performed By: #### T FTEST #### [facility] [id number] [place] [address] PELVIS WITH TRANSVAGINALon 0 11-24-2020 PELVIS WITH TRANSVAGINAL *FINAL Date of Service: 11/24/2020 19:27 Adm #: [id number] Reading Dr:LIZTET ABRAMS Signoff Dr: LIZETT ABRAMS PROCEDURE: PELVIS WITH TRANSVAGINAL - WUS 2625 REASON FOR EXAM: N92.1 EXCESS & FREQ MEN W/IRREG CYCLE RESULT: PELVIS WITH TRANSVAGINAL: 11/24/2020 7:27 PM CLINICAL HISTORY: Irregular menstruation COMPARISON: None. TECHNIQUE: Grayscale and color Doppler imaging of the pelvis were performed. Transabdominal technique was utilized as well as transvaginal ultrasound to better visualize the adnexa. FINDINGS: Uterus: Size: 7.3 x 3.5 x 5.0 cm. Hypoechoic lesion is noted posteriorly in the body of the uterus measuring 0.6 x 0.5 x 0.4 cm. Heterogeneous, primarily hypoechoic lesion in the anterior aspect of the uterus measures 1.8 x 1.3 x 1.5 cm Endometrial Thickness: 0.9 cm. Ovaries: There is normal color-flow with no sign of ovarian torsion. Right ovary: 3.2 x 2.0 x 2.1 cm. Right ovary volume: 6.7 ml Left ovary: 2.4 x 1.3 x 1.6 cm. Left ovary volume: 2.56 ml There is no free fluid in the pelvis. IMPRESSION: Uterine fibroids. [id number] This report has been produced using speech recognition. Original Interpreting Physician: LIZETT ABRAMS MD Original Transcribed by/Date: PSYCHIATRICB Nov 25 2020 8:22A Original Electronically Signed by/Date: LIZETT ABRAMS MD Nov 25 2020 8:22A Addendum Interpreting Physician: Addendum Transcribed by/Date: NO ADDENDUM Addendum Electronically Signed by/Date: Normal [facility] FSHon 11-23-2020 FSH 7.2 MU/ML Normal [facility] Comment on above: Result Comment: FOLL ICULAR 2-11 LUTEAL 1-9 POST-JUANCARLOS 20-100 Performed at [place] [address] Performed By: #### L IPD #### [address] [address] LUTEINIZING HORMONEon 2020 LUTEINIZING HORMONE 11.5 MU/ML Normal [facility] Comment on above: Result Comment: FOLL . 1-12 LUTEAL 1-10 POST-JUANCARLOS >20 Performed at [address] [address] Performed By: #### L H #### [facility] [address] [address] PROLACTINon 11-23-2020 PROLACTIN 14.5 NG/ML Normal 4.8-23.3 [facility] Comment on above: Result Comment: Perf ormed at [address] [address] Performed By: #### P RLC #### [address] [address] CBC WITHOUT DIFFon Erythrocyte distribution width (RBC) [Ratio] 12.7 % Normal 11.7-15.0 [facility] Comment on above: Performed By: #### C BCN #### [address] [address] Hematocrit (Bld) [Volume fraction] 44.1 % High 36-44 [facility] Comment on above: Performed By: #### C BCN #### [address] [address] Hemoglobin (Bld) [Mass/Vol] 13.9 g/dL Normal 12.0-15.0 [facility] Comment on above: Performed By: #### C BCN #### [address] [address] MCH (RBC) [Entitic mass] 28.6 pg Normal 26-34 [facility] Comment on above: Performed By: #### C BCN #### [address] [address] MCHC 31.5 % Normal 31-37 [facility] Comment on above: Performed By: #### C BCN #### [address] [address] MCV (RBC) [Entitic vol] 90.7 fL Normal 80-100 [facility] Comment on above: Performed By: #### C BCN #### [address] [address] MEAN PLT VOL 11.6 CU Normal 7.0-12.6 [facility] Comment on above: Performed By: #### C BCN #### [address] [address] NRBC'S 0 /100 WBC Normal 0 [facility] Comment on above: Result Comment: Perf ormed at [address] [address] Performed By: #### C BCN #### [facility] [address] [place] [address] Platelets (Bld) [#/Vol] 304 10*3/uL Normal 150-450 [facility] Comment on above: Performed By: #### C BCN #### [facility] [place] [address] [place] [address] RBC (Bld) [#/Vol] 4.86 10*6/uL Normal 4.0-4.9 [facility] Comment on above: Performed By: #### C BCN #### [facility] [place] [address] [place] [address] RDW-SD 41.1 FL Normal 37.0-54.0 [facility] Comment on above: Performed By: #### C BCN #### [place] [address] [place] [address] WBC (Bld) [#/Vol] 6.3 10*3/uL Normal 4.5-11.0 [facility] Comment on above: Performed By: #### C BCN #### [place] [address] [place] [address] COMPREHENSIVE METABOLIC PANE Gui 11-20-2020 Albumin [Mass/Vol] 4.6 g/dL Normal 3.5-5.0 [facility] Comment on above: Performed By: #### C HEALTHCARE SPECIALIST #### [place] [address] [place] [address] Albumin/Globulin [Mass ratio] 2.0 {ratio} Normal 1.5-3.0 [facility] Comment on above: Performed By: #### C HEALTHCARE SPECIALIST #### [facility] [address] [place] [address] ALP [Catalytic activity/Vol] 68 U/L Normal 35-125 [facility] Comment on above: Performed By: #### C HEALTHCARE SPECIALIST #### [facility] [place] [address] [address] [place] [address] ALT [Catalytic activity/Vol] 12 U/L Normal 5-40 [facility] Comment on above: Performed By: #### C HEALTHCARE SPECIALIST #### [facility] [place] [address] [place] [address] Anion gap [Moles/Vol] 9 mmol/L Normal 0-19 [facility] Comment on above: Performed By: #### C HEALTHCARE SPECIALIST #### [facility] [address] [place] [address] AST [Catalytic activity/Vol] 19 U/L Normal 5-40 [facility] Comment on above: Performed By: #### C HEALTHCARE SPECIALIST #### [facility] [address] [place] [address] Bilirubin [Mass/Vol] 0.6 mg/dL Normal 0.1-1.2 [facility] Comment on above: Performed By: #### C HEALTHCARE SPECIALIST #### [facility] [address] [place] [address] Calcium [Mass/Vol] 9.5 mg/dL Normal 8.5-10.4 [facility] Comment on above: Performed By: #### C HEALTHCARE SPECIALIST #### [facility] [address] [place] [address] Chloride [Moles/Vol] 103 mmol/L Normal 97-107 [facility] Comment on above: Performed By: #### C HEALTHCARE SPECIALIST #### [facility] [place] [address] [place] [address] CO2 [Moles/Vol] 27 mmol/L Normal 24-31 [facility] Comment on above: Performed By: #### C HEALTHCARE SPECIALIST #### [facility] [place] [address] [place] [address] Creatinine [Mass/Vol] 1.0 mg/dL Normal 0.4-1.6 [facility] Comment on above: Performed By: #### C HEALTHCARE SPECIALIST #### [facility] [place] [address] [place] [address] ESTIMATED GFR 66 mL/min/1.73 m2 [facility] Comment on above: Result Comment: GFR ml/min/1.73m2 Stage ----- 90 1 60-89 2 30-59 3 15-29 4 <15 5 For -Americans, multiply EGFR result by 1.210 Calculation not validated for patients under 18 years of age. Performed at [address] [place] [address] Performed By: #### C HEALTHCARE SPECIALIST #### [facility] [place] [address] [place] [address] Globulin (S) [Mass/Vol] 2.3 g/dL Normal 1.9-3.7 [facility] Comment on above: Performed By: #### C HEALTHCARE SPECIALIST #### [facility] [place] [address] [place] [address] Glucose [Mass/Vol] 138 mg/dL High 65-99 [facility] Comment on above: Performed By: #### C HEALTHCARE SPECIALIST #### [facility] [address] [address] Potassium [Moles/Vol] 4.1 mmol/L Normal 3.4-5.1 [facility] Comment on above: Performed By: #### C HEALTHCARE SPECIALIST #### [address] [address] Protein [Mass/Vol] 6.9 g/dL Normal 5.9-7.9 [facility] Comment on above: Performed By: #### C HEALTHCARE SPECIALIST #### [address] [address] Sodium [Moles/Vol] 138 mmol/L Normal 133-145 [facility] Comment on above: Performed By: #### C HEALTHCARE SPECIALIST #### [facility] [address] [address] Urea nitrogen [Mass/Vol] 12 mg/dL Normal 8-25 [facility] Comment on above: Performed By: #### C HEALTHCARE SPECIALIST #### [facility] [address] [address] Urea nitrogen/Creatinine [Mass ratio] 12.0 mg/mg Normal 8-21 [facility] Comment on above: Performed By: #### C HEALTHCARE SPECIALIST #### [facility] [address] [address] HEMOGLOBIN A1con 11-20-2020 HbA1c (Bld) [Mass fraction] 7.5 % High 4.0-6.0 [facility] Comment on above: Result Comment: Hemo globin A1C levels are related to mean blood glucose during the preceding 2-3 months. The relationship table below may be used as a general guide. Each 1% increase in HGB A1C is a reflection of an increase in mean glucose of approximately 30 mg/dl. Reference: Diabetes Care, volume 29, supplement 1 2005 HGB A1C ................. Approx. Mean Glucose 6% ............................... 120 mg/dl 7% ............................... 150 mg/dl 8% ............................... 180 mg/dl 9% ............................... 210 mg/dl 10% ............................... 240 mg/dl Performed at [address] [address] Performed By: #### G LYC #### [facility] [address] [address] LIPID PANELon 11-20-2020 CHOL HDL RATIO 2.4 RATIO Normal [facility] Comment on above: Result Comment: Acco rding to the [place] [employer], the goal is to maintain the total cholesterol/HDL ratio at 5-to-1 or lower with an optimum ratio of 3.5-to-1. Performed at [address] [address] Performed By: #### L IPD #### [facility] [address] [address] Cholesterol [Mass/Vol] 212 mg/dL High 133-200 [facility] Comment on above: Performed By: #### L IPD #### [facility] [address] [address] Cholesterol in HDL [Mass/Vol] 89 mg/dL Normal >50 [facility] Comment on above: Result Comment: Flor latif Cholesterol Education Program(NCFP)guidelines: <40 mg/dl:Low HDL-cholesterol(major risk factor for CHD) >60 mg/dl:High HDL-cholesterol(negativerisk factor for CHD) HDL-cholesterol is affected by a number of factors,e.g.,smoking, exercise,hormones,sex and age. Performed By: #### L IPD #### [address] [address] Cholesterol in LDL [Mass/Vol] 109 mg/dL Normal 65-130 [facility] Comment on above: Performed By: #### L IPD #### [address] [address] SERUM CLARITY CLEAR [facility] Comment on above: Performed By: #### L IPD #### [address] [address] TRIGLYCERIDE G.B. 68 MG/DL Normal 40-150 [facility] Comment on above: Performed By: #### L IPD #### [address] [address] PT. PREPARATION FASTING [facility] Comment on above: Performed By: #### L IPD #### [address] [address] SERUM COLOR YELLOW [facility] Comment on above: Performed By: #### L IPD #### [address] [address] TSHon 11-20-2020 TSH 1.11 MIU/L Normal 0.27-4.20 [facility] Comment on above: Result Comment: Perf ormed at [address] [address] Performed By: #### T SHR #### [address] [address] CBC WITHOUT DIFFon 08-26-202 0 Erythrocyte distribution width (RBC) [Ratio] 12.8 % Normal 11.7-15.0 [facility] Comment on above: Performed By: #### L IPD #### [facility] [place] [address] [place] [address] Hematocrit (Bld) [Volume fraction] 43.8 % Normal 36-44 [facility] Comment on above: Performed By: #### L IPD #### [address] [address] Hemoglobin (Bld) [Mass/Vol] 13.6 g/dL Normal 12.0-15.0 [facility] Comment on above: Performed By: #### L IPD #### [address] [address] MCH (RBC) [Entitic mass] 28.8 pg Normal 26-34 [facility] Comment on above: Performed By: #### L IPD #### [address] [address] MCHC 31.1 % Normal 31-37 [facility] Comment on above: Performed By: #### L IPD #### [place] [address] [place] [address] MCV (RBC) [Entitic vol] 92.6 fL Normal 80-100 [facility] Comment on above: Performed By: #### L IPD #### [place] [address] [place] [address] MEAN PLT VOL 11.1 CU Normal 7.0-12.6 [facility] Comment on above: Performed By: #### L IPD #### [place] [address] [place] [address] NRBC'S 0 /100 WBC Normal 0 [facility] Comment on above: Result Comment: Perf ormed at [address] [address] Performed By: #### L IPD #### [place] [address] [place] [address] Platelets (Bld) [#/Vol] 247 10*3/uL Normal 150-450 [facility] Comment on above: Performed By: #### L IPD #### [place] [address] [place] [address] RBC (Bld) [#/Vol] 4.73 10*6/uL Normal 4.0-4.9 [facility] Comment on above: Performed By: #### L IPD #### [place] [address] [place] [address] RDW-SD 43.8 FL Normal 37.0-54.0 [facility] Comment on above: Performed By: #### L IPD #### [place] [address] [place] [address] WBC (Bld) [#/Vol] 5.8 10*3/uL Normal 4.5-11.0 [facility] Comment on above: Performed By: #### L IPD #### [address] [place] [address] COMPREHENSIVE METABOLIC PANE [facility] 04-19-2020 Albumin [Mass/Vol] 4.2 g/dL Normal 3.5-5.0 [facility] Comment on above: Performed By: #### L IPD #### [address] [place] [address] Albumin/Globulin [Mass ratio] 1.4 {ratio} Low 1.5-3.0 [facility] Comment on above: Performed By: #### L IPD #### [address] [place] [address] ALP [Catalytic activity/Vol] 59 U/L Normal 35-125 [facility] Comment on above: Performed By: #### L IPD #### [facility] [address] [place] [address] ALT [Catalytic activity/Vol] 17 U/L Normal 5-40 [facility] Comment on above: Performed By: #### L IPD #### [facility] [address] [place] [address] Anion gap [Moles/Vol] 10 mmol/L Normal 0-19 [facility] Comment on above: Performed By: #### L IPD #### [facility] [address] [place] [address] AST [Catalytic activity/Vol] 22 U/L Normal 5-40 [facility] Comment on above: Performed By: #### L IPD #### [facility] [address] [place] [address] Bilirubin [Mass/Vol] 0.8 mg/dL Normal 0.1-1.2 [facility] Comment on above: Performed By: #### L IPD #### [facility] [address] [place] [address] Calcium [Mass/Vol] 9.1 mg/dL Normal 8.5-10.4 [facility] Comment on above: Performed By: #### L IPD #### [facility] [address] [place] [address] Chloride [Moles/Vol] 105 mmol/L Normal 97-107 [facility] Comment on above: Performed By: #### L IPD #### [facility] [address] [place] [address] CO2 [Moles/Vol] 22 mmol/L Low 24-31 [facility] Comment on above: Performed By: #### L IPD #### [facility] [address] [place] [address] Creatinine [Mass/Vol] 0.9 mg/dL Normal 0.4-1.6 [facility] Comment on above: Performed By: #### L IPD #### [facility] [address] [place] [address] ESTIMATED GFR 74 mL/min/1.73 m2 Normal [facility] Comment on above: Result Comment: GFR ml/min/1.73m2 Stage ----- 90 1 60-89 2 30-59 3 15-29 4 <15 5 For -Americans, multiply EGFR result by 1.210 Calculation not validated for patients under 18 years of age. Performed at [address] [place] [address] Performed By: #### L IPD #### [facility] [address] [place] [address] Globulin (S) [Mass/Vol] 3.1 g/dL Normal 1.9-3.7 [facility] Comment on above: Performed By: #### L IPD #### [address] [place] [address] Glucose [Mass/Vol] 112 mg/dL High 65-99 [facility] Comment on above: Performed By: #### L IPD #### [facility] [address] [place] [address] Potassium [Moles/Vol] 5.1 mmol/L Normal 3.4-5.1 [facility] Comment on above: Performed By: #### L IPD #### [address] [place] [address] Protein [Mass/Vol] 7.3 g/dL Normal 5.9-7.9 [facility] Comment on above: Performed By: #### L IPD #### [address] [address] Sodium [Moles/Vol] 137 mmol/L Normal 133-145 [facility] Comment on above: Performed By: #### L IPD #### [address] [place] [address] Urea nitrogen [Mass/Vol] 17 mg/dL Normal 8-25 [facility] Comment on above: Performed By: #### L IPD #### [address] [address] Urea nitrogen/Creatinine [Mass ratio] 18.9 mg/mg Normal 8-21 [facility] Comment on above: Performed By: #### L IPD #### [address] [place] [address] LIPID PANELon 04-19-2020 CHOL HDL RATIO 2.3 RATIO Normal [facility] Comment on above: Result Comment: Acco rding to the [place] [employer], the goal is to maintain the total cholesterol/HDL ratio at 5-to-1 or lower with an optimum ratio of 3.5-to-1. Performed at [address] [place] [address] Performed By: #### L IPD #### [address] [place] [address] Cholesterol [Mass/Vol] 205 mg/dL High 133-200 [facility] Comment on above: Performed By: #### L IPD #### [facility] [address] [address] Cholesterol in HDL [Mass/Vol] 88 mg/dL Normal >50 [facility] Comment on above: Result Comment: Flor onarmando Cholesterol Education Program(NCFP)guidelines: <40 mg/dl:Low HDL-cholesterol(major risk factor for CHD) >60 mg/dl:High HDL-cholesterol(negativerisk factor for CHD) HDL-cholesterol is affected by a number of factors,e.g.,smoking, exercise,hormones,sex and age. Performed By: #### L IPD #### [address] [address] Cholesterol in LDL [Mass/Vol] 107 mg/dL Normal 65-130 [facility] Comment on above: Performed By: #### L IPD #### [address] [address] SERUM CLARITY CLEAR [facility] Comment on above: Performed By: #### L IPD #### [address] [address] TRIGLYCERIDE G.B. 48 MG/DL Normal 40-150 [facility] Comment on above: Performed By: #### L IPD #### [facility] [address] [address] PT. PREPARATION FASTING [facility] Comment on above: Performed By: #### L IPD #### [facility] [address] [address] SERUM COLOR YELLOW [facility] Comment on above: Performed By: #### L IPD #### [address] [address] TSHon 04-19-2020 TSH 0.57 MIU/L Normal 0.27-4.20 [facility] Comment on above: Result Comment: Perf ormed at [address] [place] [address] Performed By: #### T SHR #### [facility] [address] [address] Vital Signs Date Time Vital Sign Value Performing Clinician Faci lity 10--2023 14:27-0400 Body height 157.5 cm Amelia Diaz [employer] Work Phone: [facility] 06-18-2023 14:27-0400 Body mass index (BMI) [Ratio] 26.16 kg/m2 Amelia Diaz [employer] Work Phone: [facility] 06-18-2023 14:27-0400 Body temperature 98.01 [degF] Amelia Diaz [employer] Work Phone: [facility] 06-18-2023 14:27-0400 Body weight 64.86 kg Amelia Diaz [employer] Work Phone: [facility] 06-18-2023 14:27-0400 Diastolic blood pressure 71 mm[Hg] Amelia Diaz [employer] Work Phone: [facility] 06-18-2023 14:27-0400 Heart rate 74 /min Amelia Diaz [employer] Work Phone: [facility] 06-18-2023 14:27-0400 Respiratory rate 16 /min Amelia Diaz [employer] Work Phone: [facility] 06-18-2023 14:27-0400 SaO2% (BldA) [Mass fraction] 100 % Amelia Diaz [employer] Work Phone: [facility] 06-18-2023 14:27-0400 Systolic blood pressure 120 mm[Hg] Amelia Diaz [employer] Work Phone: [facility] 05-26-2023 08:45-0400 Body mass index (BMI) [Ratio] 25.97 kg/m2 Anna Stewart MD Work Phone: [employer] 05-26-2023 08:45-0400 Body weight 64.41 kg Anna Stewart MD Work Phone: [employer] 05-26-2023 08:45-0400 Diastolic blood pressure 86 mm[Hg] Anna Stewart MD Work Phone: [employer] 05-26-2023 08:45-0400 Heart rate 66 /min Anna Stewart MD Work Phone: [employer] 05-26-2023 08:45-0400 Systolic blood pressure 142 mm[Hg] Anna Stewart MD Work Phone: [employer] 12-06-2022 09:09-0400 Diastolic blood pressure 69 mm[Hg] Kailey Hall DO Work Phone: [employer] 12-06-2022 09:09-0400 Heart rate 65 /min Kailey Hall DO Work Phone: [employer] 12-06-2022 09:09-0400 SaO2% (BldA) [Mass fraction] 100 % Kailey Hall DO Work Phone: [employer] 12-06-2022 09:09-0400 Systolic blood pressure 126 mm[Hg] Kailey Hall DO Work Phone: [employer] 11-06-2022 11:06-0400 Body height 157.5 cm Deacon Paulino MD Work Phone: [employer] 11-06-2022 11:06-0400 Body mass index (BMI) [Ratio] 25.61 kg/m2 Deacon Paulino MD Work Phone: [employer] 11-06-2022 11:06-0400 Body weight 63.5 kg Deacon Paulino MD Work Phone: [employer] 07-22-2022 09:43-0500 Body height 154.9 cm Dejuan Boles MD Work Phone: [employer] 07-22-2022 09:43-0500 Body mass index (BMI) [Ratio] 27.28 kg/m2 Dejuan Boles MD Work Phone: [employer] 07-22-2022 09:43-0500 Body temperature 97.11 [degF] Dejuan Boles MD Work Phone: [employer] 07-22-2022 09:43-0500 Body weight 65.5 kg Dejuan Boles MD Work Phone: [employer] 07-22-2022 09:43-0500 Diastolic blood pressure 45 mm[Hg] Dejuan Boles MD Work Phone: [employer] 07-22-2022 09:43-0500 Heart rate 74 /min Dejuan Boles MD Work Phone: [employer] 07-22-2022 09:43-0500 Systolic blood pressure 99 mm[Hg] Dejuan blanco MD Work Phone: [employer] 06-18-2022 09:02-0400 Body mass index (BMI) [Ratio] 26.64 kg/m2 Lorri Sandraman [employer] Work Phone: [facility] 06-18-2022 09:02-0400 Body temperature 97.2 [degF] Lorri Lauraharoonman [employer]ELOPER Work Phone: [employer] 06-18-2022 09:02-0400 Body weight 63.96 kg Lorri Laurazman [employer] Work Phone: [facility] 06-18-2022 09:02-0400 Diastolic blood pressure 69 mm[Hg] Lorri Laurazman [employer] Work Phone: [facility] 06-18-2022 09:02-0400 Heart rate 78 /min Lorri Laurazman [employer] Work Phone: [facility] 06-18-2022 09:02-0400 Respiratory rate 18 /min Lorri Laurazman [employer] Work Phone: [facility] 06-18-2022 09:02-0400 SaO2% (BldA) [Mass fraction] 100 % Lorri Laurazman [employer] Work Phone: [facility] 06-18-2022 09:02-0400 Systolic blood pressure 111 mm[Hg] Lorri Elias [employer] Work Phone: [facility] 02-21-2022 08:32-0400 Body mass index (BMI) [Ratio] 26.24 kg/m2 Eris Valdez MD Work Phone: [facility] 02-21-2022 08:32-0400 Body temperature 98.01 [degF] Eris Valdez MD Work Phone: [facility] 02-21-2022 08:32-0400 Body weight 63.01 kg Eris Valdez MD Work Phone: [facility] 02-21-2022 08:32-0400 Diastolic blood pressure 66 mm[Hg] Eris Valdez MD Work Phone: [facility] 02-21-2022 08:32-0400 Heart rate 63 /min Eris Valdez MD Work Phone: [facility] 02-21-2022 08:32-0400 SaO2% (BldA) [Mass fraction] 100 % Eris Valdez MD Work Phone: [facility] 02-21-2022 08:32-0400 Systolic blood pressure 113 mm[Hg] Eris Valdez MD Work Phone: [facility] Encounters Encounter Date Encounter Type Care Provider Facility Start: 06-25-2025 End: 06-25-2025 Letter encounter Gracie Sanchez RN [facility] Start: 05-03-2025 End: 05-07-2025 ambulatory EUGENIO WATKINS DO Facility:[facility] Start: 05-03-2025 End: 05-07-2025 Outreach Lab ADRIAN HANCOCK MD [facility] Start: 04-08-2025 End: 04-08-2025 ambulatory Angelica Watkins MD Work Phone: [facility] [place] Start: 04-08-2025 End: 04-08-[address] Elfego Durand MD [facility] [place] Work Phone: Start: 04-08-2025 End: 04-08-2025 ambulatory Elfego Durand Facility:[facility] Start: 02-07-2025 End: 02-07-2025 ambulatory EUGENIO JUNE DO Facility:[facility] [place] Start: 02-07-2025 End: 02-07-2025 SAME DAY STAY ADRIAN HANCOCK MD [facility] Start: 02-01-2025 End: 02-01-2025 Admission to establishment ADRIAN HANCOCK MD [facility] Start: 02-01-2025 End: 02-01-2025 ambulatory EUGENIO WATKINS DO Facility:[facility] Start: 01-28-2025 End: 01-28-[address] Ifeoma Harris MD -[facility] [place] Work Phone: Start: 01-28-2025 End: 01-28-2025 ambulatory Angelica Watkins MD Work Phone: [facility] Work Phone: Start: 01-25-2025 End: 01-25-2025 ambulatory DARLENE REYES MD Facility:A Start: 01-25-2025 End: 01-25-2025 Patient encounter procedure DARLENE REYES MD [facility] Start: 01-24-2025 End: 01-24-2025 ambulatory EUGENIO WATKINS DO Facility:[facility] Start: 01-24-2025 End: 01-24-2025 Patient encounter procedure DARLENE REYES MD [facility] Start: 01-13-2025 End: 01-13-2025 ambulatory DARLENE REYES MD Facility:[facility] [place] Start: 12-20-2024 End: 12-20-[address] Angeliac Watkins MD [facility] [place] Work Phone: Start: 12-20-2024 End: 12-20-2024 ambulatory Angelica Watkins Facility:[facility] Start: 10-28-2024 End: 10-28-2024 ambulatory Angelica Watkins MD Work Phone: [facility] Work Phone: Start: 10-28-2024 End: 10-28-[address] Ifeoma Harris MD -Laboratory, [place] Work Phone: Start: 10-28-2024 End: 10-28-2024 ambulatory Ifeoma Harris Facility:[facility] Start: 06-08-2024 End: 06-08-2024 ambulatory Jared Sonidolidia Facility:[facility] Start: 03-26-2024 End: 03-29-2024 Refill Dejuan Boles MD Work Phone: [facility]Pediatric[facility] Comment on above: Refill Start: 01-14-2024 End: 01-14-2024 Telephone encounter Cory Pina MD Work Phone: [facility] Endocrinology Start: 11-10-2023 End: 11-11-2023 ambulatory DEJUAN BOLES Facility:[facility] Start: 09-28-2023 Letter encounter Gracie Sanchez RN [facility] Start: 09-19-2023 Refill Dejuan luo MD Work Phone: [facility] Medicine-Pediatrics Comment on above: Refill Start: 06-18-2023 End: 08-22-2023 Patient encounter status Amelia Diaz APRN-PHP [employer] Work Phone: [facility] Start: 06-18-2023 End: 08-22-2023 Periodic preventive med est patient 40-64yrs Amelia Diaz APRN-PHP [employer] DEVELOPER Work Phone: [facility] Medicine-Pediatrics Comment on above: Routine adult health maintenance (Primary Dx); Type 1 diabetes mellitus without complication (HCC); Mild intermittent asthma without complication; Hypothyroidism, unspecified type; Body mass index (BMI) 26.0-26.9, adult Start: 06-03-2023 Telephone encounter Anna Richardson MD Work Phone: [facility] Obstetrics/Gynecology Comment on above: Question about medic ation Start: 05-26-2023 End: 05-26-2023 Nursing evaluation of patient and report [facility] Lab Provider Work Phone: [facility] Comment on above: Menorrhagia with reg ular cycle (Primary Dx) Start: 05-26-2023 End: 05-26-2023 Office outpatient new 45 minutes Anna Stewart MD Work Phone: [facility] DIRECTOR OF MEDICAL SERVICES Comment on above: Dysmenorrhea (Primar y Dx); Menorrhagia with regular cycle; Hyperthyroidism; Body mass index (BMI) 25.0-25.9, adult Start: 03-06-2023 Orders Only Dejuan luo MD Work Phone: [facility] Population Health Outreach Start: 01-23-2023 Telephone encounter Eris mendoza MD Work Phone: [facility] Endocrinology Comment on above: Forms Completion (Ed ronald) Start: 12-30-2022 Letter encounter Gracie Sanchez RN [facility] PM&R Start: 12-23-2022 Letter encounter Gracie Sanchez RN [facility] Start: 12-18-2022 End: 12-18-2022 ambulatory Austin Wood PT Work Phone: [facility] Comment on above: PT Visit # (6) Start: 12-18-2022 End: 12-18-2022 Nutrition therapy Austin Wood PT Work Phone: [facility] Start: 12-06-2022 End: 12-06-2022 Patient encounter procedure Kailey Hall DO Work Phone: [facility] Comment on above: Biceps tendinitis on right (Primary Dx) Start: 11-29-2022 Telephone encounter Isis alejandre PA-C Work Phone: [facility] Orthopedic Hand Start: 11-27-2022 Letter encounter Gracie Sanchez RN [facility] Financial Clearance Start: 11-21-2022 End: 11-21-2022 ambulatory [facility]adr[facility] Comment on above: PT Visit # (3) Start: 11-21-2022 End: 11-21-2022 Nutrition therapy Austin Shadrach PT [facility] Start: 11-20-2022 Telephone encounter Eris mendoza MD Work Phone: [facility] Endocrinology Comment on above: Forms Completion (Ed christinek) Start: 11-19-2022 End: 11-19-2022 Nutrition therapy Austin Shadrach [facility] Start: 11-19-2022 End: 11-19-2022 ambulatory Austin Shadrach PT Work Phone: [facility] Comment on above: PT Visit # (2) Arrived Start: 11-14-2022 End: 11-15-2022 ambulatory Austin Shadrach PT [facility] Comment on above: PT Eval (Right Shoul anderson) Start: 11-14-2022 End: 11-15-2022 Nutrition therapy Austin Shadrach PT [facility] Start: 11-06-2022 Letter encounter Gracie Sanchez RN [facility] Orthopedic Hand Start: 11-06-2022 End: 11-06-2022 Office outpatient new 30 minutes Deacon Paulino MD Work Phone: [facility] Orthopedic Hand Comment on above: Type 1 diabetes darlyn itus without complication (HCC) (Primary Dx); Chronic right shoulder pain; Body mass index (BMI) 25.0-25.9, adult Start: 09-24-2022 Letter encounter Gracie Sanchez RN [facility] Start: 09-06-2022 Telephone encounter [facility]les [facility] on above: Requesting Medicatio ns Start: 09-02-2022 E-mail encounter fro m caregiver Astrid Bettencourt [facility] Obstetrics/Gynecology Start: 09-02-2022 Patient encounter procedure Astrid Bettencourt [facility] Obstetrics/Gynecology Comment on above: MARBLE HELPER Appointment Start: 07-22-2022 Letter encounter Gracie Sanchez RN [facility] MedicinePediatrics Start: 07-22-2022 End: 07-22-2022 Office outpatient visit 25 minutes Dejuan Boles [facility] Comment on above: Acute recurrent sinu sitis, unspecified location (Primary Dx); Type 1 diabetes mellitus without complication (HCC); Uterine leiomyoma, unspecified location; Hypothyroidism, unspecified type; Mild intermittent asthma without complication; Body mass index (BMI) 27.0-27.9, adult Start: 06-18-2022 End: 06-18-2022 Office outpatient visit 15 minutes Lorri Elias APRN-PHP [employer] DEVELOPER Work Phone: [facility] Comment on above: Acute bacterial rhin osinusitis (Primary Dx); Body mass index (BMI) 26.0-26.9, adult Start: 04-15-2022 End: 04-15-2022 Subsequent hospital visit by physician [facility] Radiology Comment on above: OUTSIDE CORRESPONDEN CE Start: 03-25-2022 Letter encounter Gracie Sanchez RN [facility] Start: 03-16-2022 ambulatory Janel Miller RN [facility] Comment on above: Advice/health educat ion Start: 03-11-2022 ambulatory Ame Araujo RN [facility] Comment on above: Cough Start: 03-11-2022 End: 03-11-2022 Phys/qhp telephone evaluation 21-30 min Cornel Vazquez MD Work Phone: [facility] Comment on above: COVID-19 virus infec tion (Primary Dx) Start: 03-09-2022 ambulatory Jammie bey [employer] DEVELOPER Work Phone: [facility] Internal Medicine Comment on above: Positive Covid Test Start: 03-09-2022 E-mail encounter fro m caregiver Jammie Gann [employer] DEVELOPER Work Phone: [facility] Internal Medicine Start: 02-21-2022 End: 02-21-2022 Office outpatient visit 40 minutes Eris Valdez MD Work Phone: [facility] Endocrinology Comment on above: Type 1 diabetes darlyn itus with hyperglycemia (HCC) (Primary Dx) Start: 02-20-2022 ambulatory Gracie Sanchez RN [facility] Endocrinology Start: 02-20-2022 Patient encounter procedure Gracie Sanchez RN [facility] Endocrinology Comment on above: Case Management; Lef t Message To Call Back; System Navigation; Appointment Confirmation; APPOINTMENT SCHEDULING Start: 11-08-2021 Telephone encounter Hailey Ngo [facility] Comment on above: Forms Completion Procedures Date Procedure Procedure Detail Performing Clinician Start: 04-08-2025 Plain x-ray of hand Teresa Watkins MD Work Phone: Start: 02-07-2025 Endometrial ablation SA NEPTALI HANCOCK MD Comment on above: NOVASURE Start: 01-28-2025 Assay of triglycerides Angelica Watkins MD Work Phone: Start: 01-28-2025 Total iron binding c apacity measurement Angelica Watkins MD Work Phone: Start: 12-20-2024 X-ray of cervical spine Angelica Wtakins MD Work Phone: Start: 10-28-2024 Vitamin D, 25-hydrox y measurement Angelica Watkins MD Work Phone: Comment on above: Vitamin D StatusDefi ciency: <20 ng/mL (50nmol/L)Insufficiency: 20-30 ng/mL (50-75 nmol/L)Sufficiency: 30-100 ng/mL (75-250 nmol/L)Toxicity: >100 ng/mL (>250 nmol/L) Start: 05-26-2023 Assay of thyroid stimulating hormone tsh Anna Stewart MD Work Phone: Start: 12-30-2022 Us guidance needle placement img s&i Kailey Hall DO Work Phone: Start: 12-06-2022 Arthrocentesis aspir &/inj major jt/bursa w/us Kailey Hall DO Work Phone: Start: 11-19-2022 Hemoglobin glycosylated a1c Eris Valdez MD Work Phone: Start: 04-15-2022 MG IMPORTED IMAGES Leopoldo alvarez Zahra Mukherjeevaw DO Work Phone: Start: 10-16-2021 3 comp foot exam completed Hailey Ngo Start: 08-19-2019 Microscopic observat ion [Identifier] in Cervix by Cyto stain Hailey Ngo Start: 08-25-2015 Lateral retinacula r elease of knee DARLENE REYES MD Start: 08-25-2012 Lateral retinacula r elease of knee DARLENE REYSE MD Start: 03-25-2000 Reduction mammaplasty A RUSLAN REYES MD Start: 08-25-1999 Structure of wisdom tooth (body structure) DARLENE REYES MD Plan of Treatment Date Care Activity Detail Author Start: 2045 Pneumococcal vaccination Pneumococcal Vaccine(s) (2 of 2 - PPSV23) [facility] Start: 2030 Shingles (RZV) Vacci ne (1 of 2) Shingles (RZV) Vaccine (1 of 2) [facility] Start: 05-25-2025 Influenza vaccination Influenza Vacc ine (#1) [facility] Start: 04-25-2025 COVID-19 Vaccine ( season) [facility] Start: 04-25-2025 Influenza vaccination Influenza Vacc ine (#[facility] Start: 11-09-2024 Screening for malign ant neoplasm of breast Mammography [facility] Start: 10-28-2024 End: 10-28-2025 DBT Breast - bilateral screening MG MAMMO SCREEN BILAT TOM W/CAD Imaging Routine Screening mammogram for breast cancer Expected: 10/28/2024, Expires: 10/28/2025 [employer] Work Phone: Comment on above: Expected: 10/28/2024 , Expires: 10/28/2025 Start: 06-18-2024 COVID-19 Vaccine ( season) COVID-19 Vaccine () [facility] Comment on above: Postponed from 04/25 (Patient declined) Start: 06-02-2024 End: 06-02-2024 Patient encounter procedure 06/02/2024 10:00 AM EDT Office Visit [facility] Endocrinology [address] [place], [place] [id number] Cory Pina MD [address] [place] [address] [facility] Endocrinology Start: 05-26-2024 Thyroid stimulating hormone measurement TSH [facility] Start: 05-25-2024 Influenza vaccination Influenza Vacc ine (#1) [facility] Start: 04-25-2024 End: 07-16-2024 Assay of gammaglobulin iga igd igg igm each MICROALBUMIN, URINE Lab Routine Type 1 diabetes mellitus without complication (HCC) Expected: 04/25/2024 (Approximate), Expires: 07/16/2024 [facility] Comment on above: Expected: 04/25/2024 (Approximate), Expires: 07/16/2024 Start: 04-25-2024 End: 07-16-2024 Assay of thyroid stimulating hormone tsh TSH Lab Routine Type 1 diabetes mellitus without complication (HCC) Expected: 04/25/2024 (Approximate), Expires: 07/16/2024 [employer] Work Phone: Comment on above: Expected: 04/25/2024 (Approximate), Expires: 07/16/2024 Start: 04-25-2024 End: 07-16-2024 Basic metabolic 2000 panel - Serum or Plasma BASIC METABOLIC PANEL Lab Routine Type 1 diabetes mellitus without complication (HCC) Expected: 04/25/2024 (Approximate), Expires: 07/16/2024 [facility] Comment on above: Expected: 04/25/2024 (Approximate), Expires: 07/16/2024 Start: 04-25-2024 End: 07-16-2024 Diabetes tracking panel HEMOGLOBIN A1C Lab Routine Type 1 diabetes mellitus without complication (HCC) Expected: 04/25/2024 (Approximate), Expires: 07/16/2024 [facility] Comment on above: Expected: 04/25/2024 (Approximate), Expires: 07/16/2024 Start: 04-25-2024 End: 07-16-2024 Hepatic function panel HEPATIC FUNCTION PANEL Lab Routine Type 1 diabetes mellitus without complication (HCC) Expected: 04/25/2024 (Approximate), Expires: 07/16/2024 [facility] Comment on above: Expected: 04/25/2024 (Approximate), Expires: 07/16/2024 Start: 04-25-2024 End: 07-16-2024 Lipid 1996 panel - Serum or Plasma FULL LIPID PROFILE Lab Routine Type 1 diabetes mellitus without complication (HCC) Expected: 04/25/2024 (Approximate), Expires: 07/16/2024 [facility] Comment on above: Expected: 04/25/2024 (Approximate), Expires: 07/16/2024 Start: 11-20-2023 Basic metabolic 2000 panel - Serum or Plasma [facility] Start: 11-20-2023 Creatinine measurement Basic Metabol ic Panel [facility] Start: 10-28-2023 End: 10-28-2023 Professional / ancillary services management 10/28/2023 9:15 AM EST Ancillary Procedure [facility] Mammography [address] [place] [address] [facility]ammography Start: 10-20-2023 End: 10-20-2023 Patient encounter procedure 10/20/2023 1:00 PM EST Office Visit [facility] [address] [place] [address] Lc Walls PA-C [address] [place] [address] [facility] Start: 09-25-2023 End: 09-25-2023 Patient encounter procedure 09/25/2023 9:40 AM EST Office Visit [facility] [address] [place] [address] Lc Walls PA-C [address] [place] [address] [facility] Start: 07-08-2023 End: 07-08-2023 Patient encounter procedure 07/08/2023 1:00 PM EST Appointment [facility] Ultrasound [address] [place] [address] [facility] Ultrasound Start: 05-26-2023 End: 05-26-2023 Nursing evaluation of patient and report 05/26/2023 10:00 AM EDT Nurse Visit [facility] [address] [place] [address] Arrived [facility] Comment on above: Arrived Start: 05-26-2023 End: 05-26-2023 Patient encounter procedure 05/26/2023 9:00 AM EDT Office Visit [facility] DIRECTOR OF MEDICAL SERVICES [address] [facility] [address] [place] [address] Anna Stewart MD [address] [place] [address] [facility] DIRECTOR OF MEDICAL SERVICES Start: 05-25-2023 Influenza vaccination Influenza Vacc ine (#1) [facility] Start: 05-22-2023 Hemoglobin A1c measurement Hemoglobin A1C [facility] Start: 05-07-2023 Diabetic retinal eye exam Eye Exam [facility] Start: 04-25-2023 COVID-19 Vaccine ( season) COVID-19 Vaccine () [facility] Start: 04-25-2023 Influenza vaccination Influenza Vacc ine (#1) [facility] Start: 04-11-2023 Screening for malign ant neoplasm of breast Mammography [facility] Start: 03-06-2023 End: 03-06-2024 DBT Breast - bilateral screening MG MAMMO SCREEN BILAT TOM W/CAD Imaging Routine Screening mammogram for breast cancer Expected: 03/06/2023, Expires: 03/06/2024 [facility] Work Phone: Comment on above: Expected: 03/06/2023 , Expires: 03/06/2024 Start: 02-04-2023 End: 02-04-2023 Telemedicine consultation with patient [facility] Endocrinology Start: 01-21-2023 End: 01-21-2023 ambulatory 01/21/2023 [facility] Austin Wood, PT [address] [place] [address] [facility] Physical [facility] Start: 12-20-2022 End: 12-20-2022 Patient encounter procedure 12/20/2022 Procedure Visit Physical Medicine & Rehab/PM&R Kailey Hall, [address] [place] [address] [facility] Start: 12-11-2022 End: 12-11-2022 ambulatory 12/11/2022 [facility] Austin Wood, PT [address] [place] [address] [facility] Physical Therapy Start: 12-06-2022 End: 12-06-2022 Patient encounter procedure 12/06/2022 Procedure Visit [facility] Medicine & Rehab/PM&R Kailey Hall DO [address] [place] [address] [facility] Start: 12-04-2022 End: 12-04-2022 ambulatory 12/04/2022 [facility] Austin Wood, PT [address] [place] [address] [facility] Therapy Start: 12-02-2022 End: 12-02-2022 ambulatory 12/02/2022 [facility] Austin Wood, PT [address] [place] [address] [facility] Physical Therapy Start: 11-29-2022 End: 11-29-2022 Professional / ancillary services management 11/29/2022 Ancillary Procedure Radiology [facility] Start: 11-27-2022 End: 11-27-2022 ambulatory 11/27/2022 [facility] Austin Wood, PT [address] [place] [address] [facility] Therapy Start: 11-26-2022 End: 11-26-2022 Telemedicine consultation with patient 11/26/2022 Telemedicine Endocrinology Eris Valdez MD [address] [place] [address] [facility] Endocrinology Start: 11-21-2022 End: 11-21-2022 ambulatory 11/21/2022 [facility] Austin Wood, PT [address] [place] [address] [facility] Start: 11-19-2022 End: 11-19-2022 ambulatory 11/19/2022 [facility] Austin Wood, PT [address] [place] [address] [facility] Therapy Start: 11-13-2022 End: 11-13-2022 Professional / ancillary services management 11/13/2022 Ancillary Procedure Radiology [facility] Start: 11-06-2022 End: 11-07-2023 MR Shoulder - right WO contrast MR SHOULDER RIGHT W/O Imaging Routine Chronic right shoulder pain Expected: 11/06/2022, Expires: 11/07/2023 [facility] Work Phone: Comment on above: Expected: 11/06/2022 , Expires: 11/07/2023 Start: 11-06-2022 End: 11-07-2023 XR Shoulder - right 2 Views XR SHOULDER RIGHT MINIMUM 2 VIEWS Imaging Routine Chronic right shoulder pain Expected: 11/06/2022, Expires: 11/07/2023 [facility] Comment on above: Expected: 11/06/2022 , Expires: 11/07/2023 Start: 10-24-2022 End: 10-24-2022 Patient encounter procedure 10/24/2022 Office Visit Medicine/Pediatrics Dejuan Boles MD [address] [place] [address] [facility] Medicine-Pediatrics Start: 10-16-2022 Diabetic foot examination Foot Exam [facility] Start: 10-16-2022 Diabetic retinal eye exam Eye Exam [facility] Start: 10-16-2022 Glaucoma screening Eye Exam [facility] Start: 10-16-2022 HIV screening HIV Test [facility] Comment on above: Postponed from 12/21 (Patient declined) Start: 10-16-2022 Lipid panel Lipid Profile [facility] Start: 10-16-2022 Thyroid stimulating hormone measurement TSH [facility] Start: 10-16-2022 Urine screening for protein [facility] Start: 09-16-2022 End: 09-16-2022 Patient encounter procedure 09/16/2022 Procedure Visit Dentistry Janel Jacques [facility] [address] [place] [address] [facility] Start: 08-25-2022 Tetanus vaccination [facility] Start: 08-19-2022 Screening for malign ant neoplasm of cervix Pap Smear [facility] Start: 06-20-2022 End: 06-20-2022 Patient encounter procedure 06/20/2022 Office Visit Endocrinology Eris Valdez MD [address] [place] [address] [facility] Endocrinology Start: 06-13-2022 End: 06-13-2022 Patient encounter procedure 06/13/2022 Office Visit Endocrinology Eris Valdez MD [address] [place] [address] [facility] Endocrinology Start: 05-25-2022 Influenza vaccination Influenza Vacc ine (#1) [facility] Start: 05-07-2022 End: 05-07-2022 Patient encounter procedure 05/07/2022 Office Visit Optometry Skyla Thompson OD [address] [place] [address] [facility] Start: 04-15-2022 Hemoglobin A1c measurement Hemoglobin A1C [facility] Start: 03-25-2022 Influenza vaccination Influenza Vacc ine (#1) [facility] Start: 02-21-2022 End: 02-21-2023 Assay of c-peptide C-PEPTIDE, SERUM Lab Routine Type 1 diabetes mellitus with hyperglycemia (HCC) Expected: 02/21/2022 (Approximate), Expires: 02/21/2023 [employer] Work Phone: Comment on above: Expected: 02/21/2022 (Approximate), Expires: 02/21/2023 Start: 02-21-2022 End: 02-21-2023 Basic metabolic 2000 panel - Serum or Plasma BASIC METABOLIC PANEL Lab Routine Type 1 diabetes mellitus with hyperglycemia (HCC) Expected: 02/21/2022 (Approximate), Expires: 02/21/2023 [facility] Comment on above: Expected: 02/21/2022 (Approximate), Expires: 02/21/2023 Start: 02-21-2022 End: 02-21-2023 Fluorescent nonnfct agt antb screen ea antibody ADRENAL ANTIBODY Lab Routine Type 1 diabetes mellitus with hyperglycemia (HCC) Expected: 02/21/2022 (Approximate), Expires: 02/21/2023 [facility] Comment on above: Expected: 02/21/2022 (Approximate), Expires: 02/21/2023 Start: 02-21-2022 End: 02-21-2023 Islet cell antibody [facility] Comment on above: Expected: 02/21/2022 (Approximate), Expires: 02/21/2023 Start: 02-21-2022 End: 02-21-2022 Patient encounter procedure 02/21/2022 Office Visit Endocrinology Eris Valdez MD [address] [place] [address] [facility] Endocrinology Start: 03-31-2021 COVID-19 Vaccine (3 - Booster for Moderna series) COVID-19 Vaccine (3 - Booster for Moderna series) [facility] Start: 12-24-2020 COVID-19 Vaccine (3 - Booster for Moderna series) COVID-19 Vaccine (3 - Booster for Moderna series) [facility] Start: 06-02-2020 Pneumococcal vaccination [facility] Start: 12-22-2007 HPV Vaccine (optiona l start 27-45 years) HPV Vaccine (optional start 27-45 years) [facility] Start: 2001 Screening for malign ant neoplasm of cervix Pap Smear [facility] Start: 12-22-1999 Hepatitis A (HAV) Vaccine (optional start 19+ years) Hepatitis A (HAV) Vaccine (optional start 19+ years) [facility] Start: 12-22-1999 Hepatitis B vaccination [facility] Start: 12-22-1995 HIV screening HIV Test [facility] Start: 1980 COVID-19 Vaccine ( formulation) COVID-19 Vaccine ( formulation) [facility] Start: [facility] Hepatitis B vaccination Hepati tis B (HBV) Vaccine (1 of 3 - 3-dose series) [facility] Assay of thyroid stimulating hormone tsh TSH Lab Routine Menorrhagia with regular cycle Ordered: 05/26/2023 [facility] Comment on above: Ordered: 05/26/2023 CBC panel - Blood by Automated count COMPLETE BLOOD COUNT Lab Routine Menorrhagia with regular cycle Ordered: 05/26/2023 [facility] Comment on above: Ordered: 05/26/2023 End: 02-21-2023 Diabetes tracking panel HEMOGLOBIN A1C Lab Routine Type 1 diabetes mellitus with hyperglycemia (HCC) 5 Occurrences starting 02/21/2022 until 02/21/2023 [facility] Comment on above: 5 Occurrences starti ng 02/21/2022 until 02/21/2023 Fluorescent nonnfct agt antb screen ea antibody ADRENAL ANTIBODY Lab Routine Type 1 diabetes mellitus with hyperglycemia (HCC) 11/19/2022 1:44 PM EDT [facility] Islet cell antibody [employer] Work Phone: End: 12-22-2023 US.doppler Uterus and Fallopian tubes W saline IU US INTERMEDIATE SIS Imaging Routine Dysmenorrhea Menorrhagia with regular cycle 1 Occurrences starting 05/26/2023 until 12/22/2023 [facility] Work Phone: Comment on above: 1 Occurrences starti ng 05/26/2023 until 12/22/2023 Immunizations Immunization Date Immunization Notes Care Provider [facility] 05-21-2023 influenza virus vacc ine, unspecified formulation Dejuan Boles MD Work Phone: [facility] 11-19-2022 Hemoglobin A1C Eris Bishop Work Phone: [facility] 07-22-2022 influenza virus vacc ine, unspecified formulation Dejuan Boles MD Work Phone: [facility] 10-16-2021 Hemoglobin A1C [facility] 05-25-2021 influenza virus vacc ine, unspecified formulation Eris Valdez MD Work Phone: [facility] 10-29-2020 Moderna SARS-COV-2 (COVID-19) vaccine, mRNA, spike protein, LNP, preservative free, 100 mcg/0.5 mL (primary) or 50 mcg/0.25 mL (booster) (UZC=202) [facility] 10-01-2020 Moderna SARS-COV-2 (COVID-19) vaccine, mRNA, spike protein, LNP, preservative free, 100 mcg/0.5 mL (primary) or 50 mcg/0.25 mL (booster) (BOL=070) [facility] 05-[facility]2020 influenza, injectabl e, quadrivalent, contains preservative [facility] 06-02-2019 pneumococcal polysac charide vaccine, [address] [facility] 05-25-2018 influenza, injectabl e, quadrivalent, preservative free [facility] 08-25-2012 tetanus toxoid, redu dinora diphtheria toxoid, and acellular pertussis vaccine, adsorbed [facility] Payers Date Payer Category Payer Self-pay 2024 Unknown [id number] 2022 Dental --Stand Alone DENTAL-CIGN A [id number] 2022 Private Health Insurance [id number] 2021 Unknown [employer] [facility] [employer] Shanthi BELTRE [id number] 2021-Present [address] [place] [address] POS [id number] 2021 Unknown [id number] 1980 Unknown [id number] 732 1980 Unknown [id number]. 627 1980 Unknown [id number]. 627 1980 Unknown [id number]. 627 1980 Unknown [id number] [id number]. 627 1980 Unknown [id number] [id number]. 627 1980 Unknown [id number]. 627 Private Health Insurance [id number] Unknown [id number] 462 Unknown [id number] [id number]. 462 Unknown [id number] [id number]. 462 Unknown [id number]. 462 Unknown [id number] 462 Social History Date Type Detail Facility Start: 08-29-2021 End: 07-22-2022 Tobacco smoking status NMIS Never smoked tobacco [facility] Start: 08-29-2021 End: 07-22-2022 Tobacco use and exposure Smokeless tobacco non-user [facility] Start: 09-20-2021 End: 11-05-2022 History SDOH Social Connections Phone 5 [facility] Start: 09-20-2021 End: 11-05-2022 History SDOH Social Connections Get Together 2 [facility] Start: 09-20-2021 End: 11-05-2022 History SDOH Social Connections Evangelical 3 [facility] Start: 09-20-2021 End: 11-05-2022 History SDOH Social Connections Meetings 1 [facility] Start: 09-19-2021 Education 18 [facility] Start: 1980 Sex Assigned At Female [facility] Start: 03-01-2022 End: 03-16-2022 Exposure to SARS-CoV-2 (event) Yes [facility] Start: 07-12-2022 End: 07-22-2022 Exposure to SARS-CoV-2 (event) Not sure [facility] Work Phone: Start: 08-29-2021 Gender identity Identifies as female gender (finding) [facility] Start: 08-29-2021 Sexual orientation Heterosexual (finding) [facility] Start: 11-04-2022 End: 06-18-2023 History of Social function [facility] Start: 11-04-2022 End: 06-18-2023 Humiliation, Afraid, Rape, and Kick questionnaire [HARK] [facility] Within the last year , have you been afraid of your partner or ex-partner? No [facility] Are you now , , , , never or living with a partner? [facility] How hard is it for y ou to pay for the very basics like food, housing, medical care, and heating Not hard at all [facility] Do you feel stress - tense, restless, nervous, or anxious, or unable to sleep at night because your mind is troubled all the time - these days [OSQ] Not at all [facility] (I/We) worried wheth er (my/our) food would run out before (I/we) got money to buy more. Never true [facility] Tobacco smoking stat us NMIS Unknown if ever smoked [facility] Work Phone: Start: 06-01-2020 End: 11-10-2024 Sex Female (finding) [facility] Start: 06-18-2023 History of sexual behavior Sexually active [facility] Goals Date Patient Goal Desired Activity /State Personal health goal Functional Status Date Assessment Result Facility 01-28-2025 Lipoprotein insulin resistance score Insulin Resistance/Diabete s Risk <25 [facility] Comment on above: INSULIN RESISTANCE Chaya MANJARREZ <--Insulin Sensitive Insulin Resistant--> Percentile in Reference PopulationInsulin Resistance ScoreLP-IR Score Low 25th 50th 75th High <27 27 45 63 >63LP-IR Score is inaccurate if patient is non-fasting.The LP-IR score is a laboratory developed index that hasbeen associated with insulin resistance and diabetes riskand should be used as one component of a physician'sclinical assessment.Performed at: [facility] [address] [id number] Director: Yunior Nuñez MD, Phone: [phone] Clinical Notes 10-27-2020 to 05-05-2025 Note Date & Type Note Facility 05-05-2025 Note . MICRO - Microbiology PROCEDURE: Urine Culture [*1] SOURCE: Urine, Clean Catch BODY SITE: COLLECTED DATE/TIME: 05/03/2025 13:55 EDT RECEIVED DATE/TIME: 05/03/2025 20:43 EDT START DATE/TIME: 05/03/2025 20:44 EDT FREE TEXT SOURCE: FINAL REPORTS Final Report [] Verified Date/Time/Personnel: 05/05/2025 07:49 EDT 10,000 - 50,000 cfu/ml Mixed growth consistent with normal urogenital farnaz. PRELIMINARY REPORTS Preliminary Report [] Verified Date/Time/Personnel: 05/04/2025 09:15 EDT No growth to date Preliminary Report [] Verified Date/Time/Personnel: 05/03/2025 21:59 EDT Specimen received in lab. Performing Locations *1: This test was performed at: [facility], [address] [place] [address], [id number] , [facility] 04-11-2025 Radiology Diagnostic study note [facility] Imaging Services [address] [place] [id number] Hand Min 3 Views MR#: [id number] Acct: [id number] Name: REYES BRAGA Rep #: [id number] : 1980 F 44 From: Xavier Gonzalez MD PCP: Dr. Angelica Watkins MD Status: REG CL I Study:Hand Min 3 Views Date of Exam: Exam# [id number] Ordering Dr: Elfego Durand MD PROCEDURE: HAND MIN 3 VIEWS 04/08/2025 REASON FOR EXAM: THUMB PAIN TECHNIQUE: HAND MIN 3 VIEWS Laterality: Right hand COMPARISON: None FINDINGS: Bones: No fracture. Joints: Normal alignment. Joint spaces preserved. No arthropathic features. Soft tissues: Soft tissues are unremarkable. Other: RAD/Hand Min 3 Views IMPRESSION: NEGATIVE HAND SERIES Reading Location: [id number] CC: Dr. Angelica Watkins MD; Dr. Elfego Durand MD ~ Php [employer] Developer: Signed [facility] 02-07-2025 Hospital Discharge instructions Patient Education 02/07/2025 08:16:04 Dilation and Curettage or Vacuum Curettage, Care After Dilation and Curettage or Vacuum Curettage, Care After This sheet gives you information about how to care for yourself after your procedure. Your health care provider may also give you more specific instructions. If you have problems or questions, contact your health care provider. What can I expect after the procedure? After your procedure, it is common to have: Mild pain or cramping. Some vaginal bleeding or spotting. These may last for up to 2 weeks after your procedure. Follow these instructions at home: Activity Do not drive or use heavy machinery while taking prescription pain medicine. Avoid driving for the first 24 hours after your procedure. Take frequent, short walks, followed by rest periods, throughout the day. Ask your health care provider what activities are safe for you. After 1 2 days, you may be able to return to your normal activities. Do not lift anything heavier than 10 lb (4.5 kg) until your health care provider approves. For at least 2 weeks, or as long as told by your health care provider, do not: ?Douche. ?Use tampons. ?Have sexual intercourse. General instructions Take zrph-gou-pzimcof and prescription medicines only as told by your health care provider. This is especially important if you take blood thinning medicine. Do not take baths, swim, or use a hot tub until your health care provider approves. Take showers instead of baths. Wear compression stockings as told by your health care provider. These stockings help to prevent blood clots and reduce swelling in your legs. It is your responsibility to get the results of your procedure. Ask your health care provider, or the department performing the procedure, when your results will be ready. Keep all follow-up visits as told by your health care provider. This is important. Contact a health care provider if: You have severe cramps that get worse or that do not get better with medicine. You have severe abdominal pain. You cannot drink fluids without vomiting. You develop pain in a different area of your pelvis. You have bad-smelling vaginal discharge. You have a rash. Get help right away if: You have vaginal bleeding that soaks more than one sanitary pad in 1 hour, for 2 hours in a row. You pass large blood clots from your vagina. You have a fever that is above 100.4 F (38.0 C). Your abdomen feels very tender or hard. You have chest pain. You have shortness of breath. You cough up blood. You feel dizzy or light-headed. You faint. You have pain in your neck or shoulder area. This information is not intended to replace advice given to you by your health care provider. Make sure you discuss any questions you have with your health care provider. Document Released: 08/08/2001 Document Revised: 07/24/2018 Document Reviewed: 03/13/2017 [employer] Patient Education 2020 SergeMD. 02/07/2025 08:15:58 Hysteroscopy, Care After Hysteroscopy, Care After This sheet gives you information about how to care for yourself after your procedure. Your health care provider may also give you more specific instructions. If you have problems or questions, contact your health care provider. What can I expect after the procedure? After the procedure, it is common to have: Cramping. Bleeding. This can vary from light spotting to menstrual-like bleeding. Follow these instructions at home: Activity Rest for 1 2 days after the procedure. Do not douche, use tampons, or have sex for 2 weeks after the procedure, or until your health care provider approves. Do not drive for 24 hours after the procedure, or for as long as told by your health care provider. Do not drive, use heavy machinery, or drink alcohol while taking prescription pain medicines. Medicines Take ltxn-hvz-izoyipd and prescription medicines only as told by your health care provider. Do not take aspirin during recovery. It can increase the risk of bleeding. General instructions Do not take baths, swim, or use a hot tub until your health care provider approves. Take showers instead of baths for 2 weeks, or for as long as told by your health care provider. To prevent or treat constipation while you are taking prescription pain medicine, your health care provider may recommend that you: ?Drink enough fluid to keep your urine clear or pale yellow. ?Take yove-wek-pdznape or prescription medicines. ?Eat foods that are high in fiber, such as fresh fruits and vegetables, whole grains, and beans. ?Limit foods that are high in fat and processed sugars, such as fried and sweet foods. Keep all follow-up visits as told by your health care provider. This is important. Contact a health care provider if: You feel dizzy or lightheaded. You feel nauseous. You have abnormal vaginal discharge. You have a rash. You have pain that does not get better with medicine. You have chills. Get help right away if: You have bleeding that is heavier than a normal menstrual period. You have a fever. You have pain or cramps that get worse. You develop new abdominal pain. You faint. You have pain in your shoulders. You have shortness of breath. Summary After the procedure, you may have cramping and some vaginal bleeding. Do not douche, use tampons, or have sex for 2 weeks after the procedure, or until your health care provider approves. Do not take baths, swim, or use a hot tub until your health care provider approves. Take showers instead of baths for 2 weeks, or for as long as told by your health care provider. Report any unusual symptoms to your health care provider. Keep all follow-up visits as told by your health care provider. This is important. This information is not intended to replace advice given to you by your health care provider. Make sure you discuss any questions you have with your health care provider. Document Released: 06/01/2014 Document Revised: 07/24/2018 Document Reviewed: 09/09/2017 [employer] Patient Education 2020 [employer] 02/07/2025 08:15:50 General Anesthesia, Adult, Care After General Anesthesia, Adult, Care After This sheet gives you information about how to care for yourself after your procedure. Your health care provider may also give you more specific instructions. If you have problems or questions, contact your health care provider. What can I expect after the procedure? After the procedure, the following side effects are common: Pain or discomfort at the IV site. Nausea. Vomiting. Sore throat. Trouble concentrating. Feeling cold or chills. Weak or tired. Sleepiness and fatigue. Soreness and body aches. These side effects can affect parts of the body that were not involved in surgery. Follow these instructions at home: For at least 24 hours after the procedure: Have a responsible adult stay with you. It is important to have someone help care for you until you are awake and alert. Rest as needed. Do not: ?Participate in activities in which you could fall or become injured. ?Drive. ?Use heavy machinery. ?Drink alcohol. ?Take sleeping pills or medicines that cause drowsiness. ?Make important decisions or sign legal documents. ?Take care of children on your own. Eating and drinking Follow any instructions from your health care provider about eating or drinking restrictions. When you feel hungry, start by eating small amounts of foods that are soft and easy to digest (bland), such as toast. Gradually return to your regular diet. Drink enough fluid to keep your urine pale yellow. If you vomit, rehydrate by drinking water, juice, or clear broth. General instructions If you have sleep apnea, surgery and certain medicines can increase your risk for breathing problems. Follow instructions from your health care provider about wearing your sleep device: ?Anytime you are sleeping, including during daytime naps. ?While taking prescription pain medicines, sleeping medicines, or medicines that make you drowsy. Return to your normal activities as told by your health care provider. Ask your health care provider what activities are safe for you. Take vezm-ams-gznrrje and prescription medicines only as told by your health care provider. If you smoke, do not smoke without supervision. Keep all follow-up visits as told by your health care provider. This is important. Contact a health care provider if: You have nausea or vomiting that does not get better with medicine. You cannot eat or drink without vomiting. You have pain that does not get better with medicine. You are unable to pass urine. You develop a skin rash. You have a fever. You have redness around your IV site that gets worse. Get help right away if: You have difficulty breathing. You have chest pain. You have blood in your urine or stool, or you vomit blood. Summary After the procedure, it is common to have a sore throat or nausea. It is also common to feel tired. Have a responsible adult stay with you for the first 24 hours after general anesthesia. It is important to have someone help care for you until you are awake and alert. When you feel hungry, start by eating small amounts of foods that are soft and easy to digest (bland), such as toast. Gradually return to your regular diet. Drink enough fluid to keep your urine pale yellow. Return to your normal activities as told by your health care provider. Ask your health care provider what activities are safe for you. This information is not intended to replace advice given to you by your health care provider. Make sure you discuss any questions you have with your health care provider. Document Released: 11/17/2001 Document Revised: 08/14/2018 Document Reviewed: 03/27/2018 [employer] Patient Education [employer]. Follow Up Care 01/26/2025 13:33:29 With:ADRIAN HANCOCK MD Address: [address] [place] [id number] [phone] When:Within 2 Week(s) [facility] 02-07-2025 Summary of episode note Discharge Instructions Thank you for allowing [facility] to assist you with your healthcare needs. The following is important discharge information regarding your hospital visit. Your Care Team EUGENIO WATKINS DO Your Diagnosis Postoperative pain What to do next Scheduled Follow-Up Appointments Appointment Type When With Where Contact Information StatusENDO OV 06/09/2025 02:15 PM EDT IFEOMA HARRIS MD [facility] [address] [place], [place] [address] [address] [place] [address]- [phone] Confirmed Follow Up Appointments Follow Up with ADRIAN HANCOCK MD When:In 2 weeks Where:[address] [place] [phone] The Following Activity and Diet Have Been Ordered for You Discharge Activity - Ordered -- nothing per vagina for 6 weeks. no submerging for at least 2 weeks. call for any heavy bleeding, abnormal discharge, fevers or chills, 02/07/25 8:30:00 EDT Discharge Driving Restrictions - Ordered -- No driving until pain-free, 02/07/25 8:30:00 EDT Discharge Return to Work, School, or Sports (Discharge Return to status) - Ordered -- within 2 weeks, May return to: work, 02/07/25 8:30:00 EDT Discharge Diet - Ordered -- Follow the post-operative/post-procedure diet instructions provided by your physician's office., 02/07/25 8:30:00 EDT Allergies No Known Medication Allergies Medications Please ask your primary doctor or pharmacist before taking any other medication not listed, including over the counter drugs, herbal medications, vitamins and or supplements as they may interact with your home medications. What How Much When Why Instructions Last Dose New acetaminophen (Tylenol Extra Strength 500 mg oral tablet) 1 tab(s) by mouth Every 6 hours as needed for pain 1-6 Duration: 14 Days Refills: 1 Pickup at [facility] New acetaminophen-oxyCODONE (Percocet 5 mg-325 mg oral tablet) 1 tab(s) by mouth Every 6 hours as needed for for pain 7-10 Postoperative pain Duration: 3 Days Pickup at [facility] New ibuprofen (ibuprofen 600 mg oral tablet) 1 tab(s) by mouth Every 6 hours Duration: 14 Days Pickup at [facility] Unchanged albuterol As needed for as needed for shortness of breath or wheezing Unchanged atorvastatin (atorvastatin 80 mg oral tablet) 1 tab(s) by mouth Every day Unchanged cholecalciferol (Vitamin D3) Once a day Unchanged DME (DME MISCellaneous) See instructions skin tack wipe, 1 wipe per 10 days to be used with dexcom sensor application. 1 box for 90 days and 1 refill E11.65. Unchanged DME (DME MISCellaneous) See instructions Omnipod 5 g6/ g7 pods 1 pod every 3 days #2 boxes for 90 days and 2 refills E11.65. Unchanged DME (DME MISCellaneous) See instructions Dexcom G6 Sensors. 1 sensor every 10 days. 3 per 30 days. 3 refills. E11.65 Unchanged DME (DME MISCellaneous) See instructions Dexcom G6 Transmitter. 1 every 90 days. 1 refill. E11.65 Unchanged herbal/ nutritional product green tea pill Unchanged herbal/ nutritional product (Probiotic) Unchanged insulin lispro (HumaLOG) (HumaLOG 100 units/ mL injectable solution VIAL) 40 unit(s) Subcutaneous Once a day via insulin pump Unchanged levothyroxine (levothyroxine 112 mcg (0.112 mg) oral tablet) 1 tab(s) by mouth Once a day Pharmacy Information [facility]: [address] [place], [place] [id number] [phone] Please take this list to your next doctor s visit. Bring all medications you take, including over the counter medications, herbals and other supplements with you to your doctor s visit. Patients and families are reminded to discard old lists and to update any records with all medication providers or retail pharmacies. Education Materials Dilation and Curettage or Vacuum Curettage, Care After This sheet gives you information about how to care for yourself after your procedure. Your health care provider may also give you more specific instructions. If you have problems or questions, contact your health care provider. What can I expect after the procedure? After your procedure, it is common to have: Mild pain or cramping. Some vaginal bleeding or spotting. These may last for up to 2 weeks after your procedure. Follow these instructions at home: Activity Do not drive or use heavy machinery while taking prescription pain medicine. Avoid driving for the first 24 hours after your procedure. Take frequent, short walks, followed by rest periods, throughout the day. Ask your health care provider what activities are safe for you. After 1 2 days, you may be able to return to your normal activities. Do not lift anything heavier than 10 lb (4.5 kg) until your health care provider approves. For at least 2 weeks, or as long as told by your health care provider, do not: ? Douche. ? Use tampons. ? Have sexual intercourse. General instructions Take nvmx-qdk-ikvocwh and prescription medicines only as told by your health care provider. This is especially important if you take blood thinning medicine. Do not take baths, swim, or use a hot tub until your health care provider approves. Take showers instead of baths. Wear compression stockings as told by your health care provider. These stockings help to prevent blood clots and reduce swelling in your legs. It is your responsibility to get the results of your procedure. Ask your health care provider, or the department performing the procedure, when your results will be ready. Keep all follow-up visits as told by your health care provider. This is important. Contact a health care provider if: You have severe cramps that get worse or that do not get better with medicine. You have severe abdominal pain. You cannot drink fluids without vomiting. You develop pain in a different area of your pelvis. You have bad-smelling vaginal discharge. You have a rash. Get help right away if: You have vaginal bleeding that soaks more than one sanitary pad in 1 hour, for 2 hours in a row. You pass large blood clots from your vagina. You have a fever that is above 100.4 F (38.0 C). Your abdomen feels very tender or hard. You have chest pain. You have shortness of breath. You cough up blood. You feel dizzy or light-headed. You faint. You have pain in your neck or shoulder area. This information is not intended to replace advice given to you by your health care provider. Make sure you discuss any questions you have with your health care provider. Document Released: 08/08/2001 Document Revised: 07/24/2018 Document Reviewed: 03/13/2017 [employer] Patient Education 2020 [employer]. Hysteroscopy, Care After This sheet gives you information about how to care for yourself after your procedure. Your health care provider may also give you more specific instructions. If you have problems or questions, contact your health care provider. What can I expect after the procedure? After the procedure, it is common to have: Cramping. Bleeding. This can vary from light spotting to menstrual-like bleeding. Follow these instructions at home: Activity Rest for 1 2 days after the procedure. Do not douche, use tampons, or have sex for 2 weeks after the procedure, or until your health care provider approves. Do not drive for 24 hours after the procedure, or for as long as told by your health care provider. Do not drive, use heavy machinery, or drink alcohol while taking prescription pain medicines. Medicines Take fwmh-wey-bogxgyt and prescription medicines only as told by your health care provider. Do not take aspirin during recovery. It can increase the risk of bleeding. General instructions Do not take baths, swim, or use a hot tub until your health care provider approves. Take showers instead of baths for 2 weeks, or for as long as told by your health care provider. To prevent or treat constipation while you are taking prescription pain medicine, your health care provider may recommend that you: ? Drink enough fluid to keep your urine clear or pale yellow. ? Take yofa-arl-jzjczfn or prescription medicines. ? Eat foods that are high in fiber, such as fresh fruits and vegetables, whole grains, and beans. ? Limit foods that are high in fat and processed sugars, such as fried and sweet foods. Keep all follow-up visits as told by your health care provider. This is important. Contact a health care provider if: You feel dizzy or lightheaded. You feel nauseous. You have abnormal vaginal discharge. You have a rash. You have pain that does not get better with medicine. You have chills. Get help right away if: You have bleeding that is heavier than a normal menstrual period. You have a fever. You have pain or cramps that get worse. You develop new abdominal pain. You faint. You have pain in your shoulders. You have shortness of breath. Summary After the procedure, you may have cramping and some vaginal bleeding. Do not douche, use tampons, or have sex for 2 weeks after the procedure, or until your health care provider approves. Do not take baths, swim, or use a hot tub until your health care provider approves. Take showers instead of baths for 2 weeks, or for as long as told by your health care provider. Report any unusual symptoms to your health care provider. Keep all follow-up visits as told by your health care provider. This is important. This information is not intended to replace advice given to you by your health care provider. Make sure you discuss any questions you have with your health care provider. Document Released: 06/01/2014 Document Revised: 07/24/2018 Document Reviewed: 09/09/2017 [employer] Patient Education 2020 [employer] General Anesthesia, Adult, Care After This sheet gives you information about how to care for yourself after your procedure. Your health care provider may also give you more specific instructions. If you have problems or questions, contact your health care provider. What can I expect after the procedure? After the procedure, the following side effects are common: Pain or discomfort at the IV site. Nausea. Vomiting. Sore throat. Trouble concentrating. Feeling cold or chills. Weak or tired. Sleepiness and fatigue. Soreness and body aches. These side effects can affect parts of the body that were not involved in surgery. Follow these instructions at home: For at least 24 hours after the procedure: Have a responsible adult stay with you. It is important to have someone help care for you until you are awake and alert. Rest as needed. Do not: ? Participate in activities in which you could fall or become injured. ? Drive. ? Use heavy machinery. ? Drink alcohol. ? Take sleeping pills or medicines that cause drowsiness. ? Make important decisions or sign legal documents. ? Take care of children on your own. Eating and drinking Follow any instructions from your health care provider about eating or drinking restrictions. When you feel hungry, start by eating small amounts of foods that are soft and easy to digest (bland), such as toast. Gradually return to your regular diet. Drink enough fluid to keep your urine pale yellow. If you vomit, rehydrate by drinking water, juice, or clear broth. General instructions If you have sleep apnea, surgery and certain medicines can increase your risk for breathing problems. Follow instructions from your health care provider about wearing your sleep device: ? Anytime you are sleeping, including during daytime naps. ? While taking prescription pain medicines, sleeping medicines, or medicines that make you drowsy. Return to your normal activities as told by your health care provider. Ask your health care provider what activities are safe for you. Take qgih-nis-hlldxry and prescription medicines only as told by your health care provider. If you smoke, do not smoke without supervision. Keep all follow-up visits as told by your health care provider. This is important. Contact a health care provider if: You have nausea or vomiting that does not get better with medicine. You cannot eat or drink without vomiting. You have pain that does not get better with medicine. You are unable to pass urine. You develop a skin rash. You have a fever. You have redness around your IV site that gets worse. Get help right away if: You have difficulty breathing. You have chest pain. You have blood in your urine or stool, or you vomit blood. Summary After the procedure, it is common to have a sore throat or nausea. It is also common to feel tired. Have a responsible adult stay with you for the first 24 hours after general anesthesia. It is important to have someone help care for you until you are awake and alert. When you feel hungry, start by eating small amounts of foods that are soft and easy to digest (bland), such as toast. Gradually return to your regular diet. Drink enough fluid to keep your urine pale yellow. Return to your normal activities as told by your health care provider. Ask your health care provider what activities are safe for you. This information is not intended to replace advice given to you by your health care provider. Make sure you discuss any questions you have with your health care provider. Document Released: 11/17/2001 Document Revised: 08/14/2018 Document Reviewed: 03/27/2018 [employer] Patient Education 2020 [employer]. Additional Information VACCINATE! IT SAVES LIVES! Members of the community who have not yet received the COVID-19 vaccine and would like to receive it can visit one of [facility] vaccine clinics. There are many vaccine clinic locations within the [facility]. For locations and available times, please visit https://gettheshot.coronavirus.[place] .gov/. It is important to note that some COVID mobile vaccine clinics are held outdoors and may be canceled in rainy or stormy conditions. To learn more about pediatric vaccinations (ages 5-11), we invite you to visit the [facility] webpage. [email or web address].[email or web address].org/page [email or web address]-Nncde-Alwsyxgfgxs-Frequently -Asked-Questions.html To learn more about the COVID-19 vaccine, we invite you to visit the CDC website for a list of frequently asked questions.https://www.cdc.gov/coron avirus/2019-ncov/vaccines/faq.html [facility] Patient Portal Access Instructions: Stay connected with your healthcare team and access your personal medical information anytime with the [facility] Patient Portal. Please follow the directions below to create your [facility] account: 1.Access the email account you provided upon registration to the hospital/physician office.2.Look for an invitation email from [facility].3.Open the email and access the invitation link: Accept Invitation to [facility].4.Fill in the required robledo to create your account. To access your account, visit [facility]. Click the blue button labeled Access Patient Portal and then log in with the username and password that you created in the steps above. You will be able to view your test results, lab results, a summary of your visits, upcoming appointments and more. There is also a convenient messaging option where you can send secure messages to your provider. In addition, you will have the ability to download any documents or summaries to your computer and/or send the information securely to a physician. Remember that your healthcare information is confidential, so carefully consider who you will allow to register on the [facility] Patient Portal for access to your information. You can also access the [facility] Patient Portal on the [facility] arina. Simply click on Patient Portal and then log into your account. If you would like to receive a full copy of your medical records, please contact the [facility] Medical Records Department by calling [phone], Friday through Friday between 8 a.m. and 4:30 p.m. HOW TO SAFELY DISPOSE OF PRESCRIPTION MEDICATIONS Please use one of the following methods to safely dispose of your unused medications. 1.Use a drug disposal kit: the drug disposal pouch allows you to safely discard your old and unused drugs. Ask your nurse to give you one when you are discharged.2.Visit a local take-back location: Many local pharmacies and police departments have programs that collect old and unwanted prescription drugs. Call your local pharmacy or go to http://[employer].HomeCon/2B5Mq0a to find one close to you.3.Make use of household items: Use cat litter or old coffee grounds to dispose medications if other options are not available. Mix your drugs with these household products, seal them in an airtight container and throw it into the garbage. Call [facility]: [phone] to be sure your drugs can be disposed of in this way. Some medicines may require a different approach.4.Never flush your medications down the toilet. IF YOU HAVE BEEN PRESCRIBED AN OPIOID FOR PAIN If you have been prescribed an opioid (such as hydrocodone, oxycodone or morphine), it is critical to understand the possible side effects and risks of opioid pain medications. Even when taken as directed, opioids can have several side effects including: Tolerance, meaning you might need to take more of a medication for the same pain relief. Nausea, vomiting and/or constipation. Sleepiness, dizziness, dry mouth, confusion, depression or itching. Physical dependence, meaning you have withdrawal symptoms when a medication is stopped, can develop within a few days. KNOW YOUR RESPONSIBILITIES It is important to know exactly how much and how often to take the opioid pain medications you are prescribed. Never take opioids in higher amounts or more often than prescribed. Do not combine opioids with alcohol or other drugs that cause drowsiness, such as benzodiazepines, also known as benzos, including diazepam and alprazolam, muscle relaxants or sleep aids. Never sell or share prescription opioids. This is illegal. Store opioids in a secure place and out of reach of others (including children, family, friends and visitors). The last page of this document has been signed and retained as a CHART COPY. Signatures Patient Education Materials Dilation and Curettage or Vacuum Curettage, Care After Hysteroscopy, Care After General Anesthesia, Adult, Care After Medication Leaflets My discharge plan and instructions have been reviewed and explained to me and I,REYES BRAGA understand my current condition and have read and understand these discharge instructions. I have received a written copy of the plan/instructions. If I have questions, I am aware that I should contact my doctor. Patient/Outpatient Psychiatrist Signature: ____ Date/Time: Relationship to Patient: __ Witness Name/Signature: Date/Time: [facility] 02-07-2025 Note Date of Service 02/07/25 History and Physical Update I have examined the patient; reviewed the History and Physical and there are no changes to the History and Physical unless noted below. History and Physical 44 yo G0 here for hysteroscopy D&C with polypectomy and endometrial ablation. No changes since prior H&P, except declines tubal ligation as partner sterile. all questions answered to patient stated satisfaction. Reviewed postop expectations and given infection precuations. [facility] Digitally Signed by ADRIAN HANCOCK MD on 02/07/2025 07:41 AM [facility] 02-07-2025 Anesthesiology Consult note Patient: REYES BRAGA Age: 44 years Sex: Female : 1980 Associated Diagnoses: None Author: TEODORO SAINI Preoperative Information Anesthesia history Patient's history: negative. Family's history: negative. Health Status Allergies: Allergic Reactions (Selected) No Known Medication Allergies, Allergies (1) ActiveSeverityReaction No Known Medication AllergiesNone Documented Current medications: (Selected) Inpatient Medications Ordered LR 1,000 mL: 25 mL/hr, Intravenous, Stop: 02/07/25 23:59:00 EDT Pepcid IV: 20 mg, 2 mL, IV Push, PREOP pharm Prescriptions Prescribed DME MISCellaneous: See Instructions, Dexcom G6 Sensors. 1 sensor every 10 days. 3 per 30 days. 3 refills. E11.65, 3 EA, 3 Refill(s) DME MISCellaneous: See Instructions, Dexcom G6 Transmitter. 1 every 90 days. 1 refill. E11.65, 1 EA, 1 Refill(s) DME MISCellaneous: See Instructions, Omnipod 5 g6/g7 pods 1 pod every 3 days #2 boxes for 90 days and 2 refills E11.65., 2 EA, 6 Refill(s) DME MISCellaneous: See Instructions, skin tack wipe, 1 wipe per 10 days to be used with dexcom sensor application. 1 box for 90 days and 1 refill E11.65., 1 EA, 1 Refill(s) HumaLOG 100 units/mL injectable solution VIAL: 40 unit(s), Subcutaneous, qDay, via insulin pump, 30 mL, 1 Refill(s) atorvastatin 80 mg oral tablet: 80 mg, 1 tab(s), Oral, Daily, 90 tab(s), 1 Refill(s) levothyroxine 112 mcg (0.112 mg) oral tablet: 112 mcg, 1 tab(s), Oral, qDay, 30 tab(s), 4 Refill(s) Documented Medications Documented Probiotic: 0 Refill(s) Vitamin D3: qDay, 0 Refill(s) albuterol: PRN: as needed for shortness of breath or wheezing, 0 Refill(s) herbal/nutritional product: green tea pill, 0 Refill(s), Medications (2) Active Scheduled: (1) famotidine 20 mg/2 mL vial 20 mg 2 mL, IV Push, PREOP pharm Continuous: (1) Lactated Ringers 1,000 mL 1,000 mL, Intravenous, 25 mL/hr PRN: (0) Problem list: Medical Asthma / SNOMED CT 811928038 / Confirmed Diabetes mellitus type 1 / SNOMED CT 639114607 / Confirmed Fatigue / SNOMED CT 578667760 / Confirmed Hyperlipidemia / SNOMED CT 79625432 / Confirmed Hypothyroidism / SNOMED CT 43763638 / Confirmed 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 Family History: Cancer Grandparent Comments: 05/26/2024 8:29 Keli Beckett LPN bone cancer paternal grandfather Rheumatoid arthritis Father Hypertension Father Uterine fibroids Mother Diabetes mellitus type 2 Grandparent Comments: 05/26/2024 8:29 Keli Beckett LPN maternal and paternal grandmothers Procedure history: Lateral release of knee (821158702) in 2016 at 35 Years. Lateral release of knee (112564446) in 2012 at 32 Years. Breast reduction (82918) on 03/25/2000 at 19 Years. [place] tooth (96837544) in 1999 at 19 Years. Social History: Social & Psychosocial Habits Alcohol 02/07/2025 Use: Never Substance Abuse 02/07/2025 Use: Never Tobacco 02/07/2025 Tobacco Use: Never (less than 100 in l Home/Environment 02/07/2025 Living situation: Home/Independent Domestic Concerns None Nutrition/Health 02/07/2025 Type of diet: Regular Appetite Excellent Eating Difficulties None Physical Examination No qualifying data available General: Alert and oriented. Airway: Normal temporomandibular joint mobility. Mallampati classification: II (soft palate, fauces, uvula visible). Dentition Evaluation: Denies loose/chipped teeth. Respiratory: Lungs are clear to auscultation, Respirations are non-labored. Cardiovascular: Normal rate, Regular rhythm. Neurologic: Alert, Oriented. Review / Management Results review: No qualifying data available , Lab results 02/07/2025 6:58 EDT Urinary Elimination Voiding, no difficulties IV Present Present Allergies Yes Anesthesia Extension Set Applied Yes Investigator Internal Affairs On Yes Consent Form Signed Yes Patient Dressed In Hospital gown Pre-op Preparation Glasses removed Belongings At Bedside Glasses, Pants, Shirt, Shoes NPO Status Maintained Implants Verified Yes Pacemaker/AICD Verified Yes Site Verified by Patient/Family Yes Anesthesia Consent Signed Yes Blood Consent Signed Yes 02/07/2025 6:57 EDT Designated Person #1 We May Share RENAN BRAGA [phone] Designated Person #1 Relationship Spouse Privacy Restrictions Requested None Status No, per patient Sensory Deficits None Sleep Apnea Snore No Sleep Apnea Tired No Sleep Apnea Obstruction No Sleep Apnea Pressure No Sleep Apnea BMI No Sleep Apnea Age No Sleep Apnea Neck No Sleep Apnea Gender No Sleep Apnea Score 0 Diagnosed With Sleep Apnea No Advanced Directives No - refuses information Infectious Disease Symptoms Patient states no symptoms Infectious Disease Recent Exposure No Alcohol and Drug Use No Employee of Institutional Living No Health Care Employee No History of Exposure to TB No History of Positive Chest X-Ray for TB No History of Positive TB Skin Test No Homeless No Known Immunosuppression No Recent Immigrant No Resident of Institutional Living No Bloody Sputum No Fatigue No Fever No Loss of Appetite No Night Sweats No Persistent Cough > 3 Weeks No Weight Loss No Patient Aware Date/Time Of Surgery Yes Pre-Op Patient Education NPO after midnight, No makeup, No jewelry, Responsible Republican, Aware of surgery location, Pre-op education done, Instructed to take ordered medications, SSI prevention handout given SN - Preprocedure Comments Spoke with patient, Verbalizes/Nonverbally indicates understanding, Other: LEVOTHYROXINE, BRING INHALER Barriers to Learning None evident Teaching Method Explanation Preferred Spoken Language Venezuelan Preferred Written Language Venezuelan Teaching Evaluation No further teaching needed Safety Brochure Information Reviewed Unable to complete Jayleen Welcome Video Viewed No Patient's Current Physicians Patient's Current Physicians History of Malignant Hyperthermia No Discharge To, Anticipated Home independently Prev Test Positive/Diagnosis w/COVID-19 No Current Quarantine/Isolated any Illness No Any Contact with Sick Animals/Birds No Traveled Anywhere in Last 30 Days No Lost Weight Unintentionally Recently No Eat Poorly Due to Decreased Appetite No Total MST Score 0 No Personal Devices, Patient Valuables Glasses Anesthesia/Transfusions Prior anesthesia Admission Note-Nursing Same Day Patient History 02/07/2025 6:51 EDT SN - Preop - CTm Pt in SDS Room 02/07/2025 6:51 . Assessment and Plan [place] [employer]hesi[employer] (ASA) physical status classification: Class III. Anesthetic Preoperative Plan Anesthetic technique: General. Maintenance airway: Laryngeal mask airway. Postoperative pain management: Per surgeon. Risks discussed: nausea, vomiting, sore throat, dental injury, hypotension, allergic reaction, serious complications. Informed consent: signed by patient. Digitally Signed by TEODORO SAINI on 02/07/2025 07:05 AM [facility] 01-25-2025 Note Exam Date Time Procedure Performing Provider Status 01/25/25 9:44 AM US Breast Left Limited LAI STREET MD; Auth (Verified) [id number] ORIGINAL FROM: [place] [address] PROCEDURE FOR: REYES BRAGA [address] [place] [address] [place] [address] Home: PID#: [id number] Exam#: [id number] : 1980 Age: 44 TO: DARLENE REYES MD [address] [facility] [address] [place], [place] [address] Fax: NO FAX EXAMINATION: ULTRASOUND OF THE 01/25/2025 8:40 am TECHNIQUE: Color flow and hopson scale targeted ultrasound of the were performed. Permanently stored images were reviewed. COMPARISON: 01/25/2025 mammogram and 04/11/2022 mammogram HISTORY: ORDERING SYSTEM PROVIDED HISTORY: Reason for Exam: SCAR TISSUE OR LUMPS FINDINGS: There are no significant sonographic findings to correlate with the palpable abnormality. IMPRESSION: There are no significant sonographic findings to correlate with the palpable abnormality. Clinical follow up is recommended. The patient may return to annual mammographic screening. Adri Nahidnaldo risk calculations, generated with the history provided, report this patient's 10 year risk and lifetime risk for developing breast cancer at 2.0% and 11.6%, respectively. Based on this assessment tool, if the patient's calculated lifetime risk is below 20%, then the patient is considered at average risk for developing breast cancer. If the patient's calculated lifetime risk is at or above 20%, then the patient is considered high risk for developing breast cancer and may be a candidate for supplemental breast MRI screening in addition to annual mammographic screening per the [place] [employer]. BIRADS: BI-RADS: 1: Negative RECALL: 1 year screening RECALL TYPE: mammo LETTER SENT: Normal BI-RADS 1 and 2 Interpreted by: Lizett Street MD Preliminary Report By: Lizett Street MD Electronically signed By Lizett Street MD Dictated Date: 01/25/2025 9:47:53 AM Prelim Date: 01/25/2025 12:38:59 PM Sign Date: 01/25/2025 12:38:59 PM Ordering Provider: DARLENE REYES Department Of Sociology Chair: PADMINI DANIELS RT(R)(M), RDMS letter sent: Normal BI-RADS 1 and 2 Ultrasound BI-RADS: 1 Negative [id number] Note* Exam Date Time Procedure Performing Provider Status 01/25/25 9:04 AM MA Mammo Diagnostic Bilateral w/Tom LIZETT STREET MD; Auth (Verified) [id number] ORIGINAL FROM: [facility] [address] [place] [address] PROCEDURE FOR: REYES BRAGA [address] [place] [address] [place] [address] Home: PID#: [id number] Exam#: [id number] : 1980 Age: 44 TO: DARLENE REYES MD [address] [facility] [place], [place] [address] Fax: NO FAX EXAMINATION: DIAGNOSTIC BILATERAL MAMMOGRAM WITH TOMOSYNTHESIS, 01/25/2025 8:45 am TECHNIQUE: Tomosynthesis was performed as part of the diagnostic bilateral mammogram. 2D standard and 3D tomosynthesis combination imaging performed. Current study was also evaluated with a Computer Aided Detection (CAD) system. COMPARISON: 04/11/2022 HISTORY: ORDERING SYSTEM PROVIDED HISTORY: Reason for Exam: SCAR TISSUE OR LUMPS FINDINGS: BREAST DENSITY: There are scattered areas of fibroglandular density. No significant masses, calcifications, or other findings. IMPRESSION: No mammographic findings to correlate with the patient's palpable lump. [facility] risk calculations, generated with the history provided, report this patient's 10 year risk and lifetime risk for developing breast cancer at 2.0% and 11.6%, respectively. Based on this assessment tool, if the patient's calculated lifetime risk is below 20%, then the patient is considered at average risk for developing breast cancer. If the patient's calculated lifetime risk is at or above 20%, then the patient is considered high risk for developing breast cancer and may be a candidate for supplemental breast MRI screening in addition to annual mammographic screening per the [place] [employer]. BIRADS: BI-RADS: 0: Incomplete: Need Additional Imaging Evaluation RECALL: immediate RECALL TYPE: US LETTER SENT: Normal-Needs additional work up BI-RADS 0 Interpreted by: Lizett Street MD Preliminary Report By: Lizett Street MD Electronically signed By Lizett Street MD Dictated Date: 01/25/2025 9:24:49 AM Prelim Date: 01/25/2025 12:26:12 PM Sign Date: 01/25/2025 12:26:12 PM Ordering Provider: DARLENE REYES Department Of Sociology Chair: CARMELINA SULLIVAN RT(R)(M) letter sent: Normal-Needs additional work up BI-RADS 0 Mammogram BI-RADS: 0 Indeterminate [facility] [id number] NoteProvided 1 fill of requested medication with 0 refills. Patient has not been seen a while and needs evaluation AND monitoring and we will call to have her schedule an appointment.[facility] [employer]08-04-2024 Telephone encounter Note* Telephone Encounter - Dejuan Boles MD - 03/28/2024 12:48 PM EDT Provided 1 fill of requested medication with 0 refills. Patient has not been seen a while and needsevaluation & monitoring and we will call to have her schedule an appointment. [id number] Miscellaneous Notes* Telephone Encounter - Dejuan Boles MD - 03/28/2024 12:48 PM EDT Provided 1 fill of requested medication with 0 refills. Patient has not been seen a while and needsevaluation & monitoring and we will call to have her schedule an appointment. documented in this [id number] Telephone encounter Note* Telephone Encounter - Fredy So [facility] - 03/28/2024 10:26 AM EDT Most recent visit in Endocrinology was on 02/04/2023 with Eris Valdez MD Next appointment in Endocrinology is on 06/02/2024 at 10:00 AM with Cory Pina MD [id number] Miscellaneous Notes* Telephone Encounter - Fredy So [facility] - 03/28/2024 10:26 AM EDT Most recent visit in Endocrinology was on 02/04/2023 with Eris Valdez MD Next appointment in Endocrinology is on 06/02/2024 at 10:00 AM with oCry Pina MD documented in this [id number] History of Present illness Narrative* Amelia Diaz, [employer] MAGENTO DEVELOPER - 06/18/2023 3:36 PM EDT Images from the original note were not included. Reyes Braga 42 year old, female PCP: Dejuan Boles MD Documentation: Mode: In Person Time-Based Billing Justifications: Patient visit (including performing a medically appropriate exam) Obtaining history (or reviewing separately obtained history) Reviewing (chart, labs, and other clinical notes) Counseling/educating the patient/family/caregiver Ordering/interpreting (medications, tests, procedures) Referring/communicating (with other health family day care worker) Charting in Epic Presentation History provided by: PatientLanguage county demonstrator used: No Complete exam Ms. Braga is a 42 year old female. I had the pleasure of meeting with Reyes Braga who is here to follow up with chronic conditions and routine care Conditions addressed today Type 1 diabetes mellitus without complication (HCC) -low he is Currently using insulin pump with NovoLog insulin -Followed by endocrinology service -has intermittent symptoms of polydipsia, polyphagia, or polyuria. -Discussed with pt the risk of having uncontrolled diabetes including heart disease, stroke, kidneyproblems, eye problems, PVD and recurent infections. -Educated on the benefits of better blood sugar control and advised to maintain a health diet and exercise. -Educated on benefits and diet and exercising No prior visits in Ophthalmology No prior visits in Podiatry Lab Results Component Value Date HBA1C 7.7 (H) 11/19/2022 HBA1C 8.0 (H) 10/16/2021 HBA1C 7.2 (H) 03/25/2019 Mild intermittent asthma without complication Takes albuterol INH a few times monthly Denies recent exacerbation Denies SOB or chest pain Has occasional cough and wheezing sx Hypothyroidism, unspecified type does have a remote -Synthroid 100 mcg daily -Denies sx -Last TSH normal -No current symptoms Denies Lack of energy Getting cold easily Developing coarse or thin hair Getting constipated Social History Tobacco Use Smoking status: Never Smokeless tobacco: Never Substance Use Topics Alcohol use: Not on file Office Visit on 05/26/2023 Component Date Value Ref Range Status TSH 05/26/2023 2.731 0.450 - 5.330 uIU/mL Final Referance range for women as applicable: First Trimester: 0. 050 to 3.700 uIU/mL Second Trimester: 0. 310 to 4.350 uIU/mL Third Trimester: 0. 410 to 5.180 uIU/mL WBC 05/26/2023 5.6 4.5 - 11.5 K/uL Final RBC 05/26/2023 4.90 4.00 - 5.20 M/uL Final Hemoglobin 05/26/2023 14.0 12.0 - 15.0 g/dL Final Hematocrit 05/26/2023 42.8 36.0 - 46.0 % Final MCV 05/26/2023 87 80 - 100 fL Final MCH 05/26/2023 28.5 26.0 - 34.0 pg Final MCHC 05/26/2023 32.7 32.0 - 35.9 g/dL Final Platelet 05/26/2023 246 150 - 400 K/uL Final RDW-CV 05/26/2023 14.1 11.5 - 14.5 % Final MPV 05/26/2023 9.6 7.5 - 11.2 fL Final JUAN Education on 05/18/2023 Component Date Value Ref Range Status JUAN EDU 05/18/2023 DIABETES, TYPE 2 Final JUAN URL 05/18/2023 [email or web address] Final JUAN ACC 05/18/2023 [id number] Final JUAN ISSUE DATE 05/18/2023 May 18, 2023 Final JUAN EXPIRATION DATE 05/18/2023 Jun 17, 2023 Final JUAN MESSAGE EVENT 05/18/2023 4 Day Remind Final JUAN Education on 04/14/2023 Component Date Value Ref Range Status JUAN EDU 04/14/2023 DIABETES EYE EXAM Final JUAN URL 04/14/2023 [email or web address] Final JUAN ACC 04/14/2023 [id number] Final JUAN ISSUE DATE 04/14/2023 Apr 14, 2023 Final JUAN EXPIRATION DATE 04/14/2023 May 14, 2023 Final JUAN MESSAGE EVENT 04/14/2023 2 Day Remind Final Family Hx: Family History Problem Relation Age of Onset Fibroids Mother Hypertension Mother Lipid Disorder Mother Hypertension Father Lipid Disorder Father Rheumatologic Disease Father Cancer Maternal Grandmother Diabetes Mellitus (Type 2) Paternal Grandmother Breast Cancer Negative Family History of Colon Cancer Negative Family History of Patient Active Problem List: Uterine leiomyoma [D25.9] Type 1 diabetes mellitus (HCC) [E10.9] Mild intermittent asthma [J45.20] Metrorrhagia [N92.1] Irregular menstrual cycle [N92.6] Hypothyroid [E03.9] Hyperlipidemia [E78.5] 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] Excessive and frequent menstruation [N92.0] Dysmenorrhea [N94.6] Dyslipidemia [E78.5] Asthma [J45.909] 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 I have also reconciled medications and reviewed all pertinent labs with the patient in this encounter. Medications and Allergies Home Meds Current Outpatient Medications: norethindrone (MICRONOR) 0.35 MG tablet, Take 1 Tablet by mouth daily., Disp: 84 Tablet, Rfl: 4 atorvastatin (LIPITOR) 80 mg tablet, Take 1 Tablet by mouth daily., Disp: 90 Tablet, Rfl: 3 Continuous Blood Gluc Sensor (Dexcom G6 Sensor) MISC, 1 Units every 10 days., Disp: 9 Each, Rfl: 5 Continuous Blood Gluc Transmit (Dexcom G6 Transmitter) MISC, 1 Device every 3 months., Disp: 1 Each, Rfl: 5 insulin aspart (NovoLOG) 100 UNIT/ML injection, use as directed in insulin pump up to 100 units perday, Disp: 90 mL, Rfl: 5 montelukast (SINGULAIR) 10 MG tablet, Take 1 Tablet by mouth daily., Disp: 90 Tablet, Rfl: 3 albuterol (PROVENTIL HFA) INHALATION HFA inhaler (VENTOLIN,PROAIR,PROVENTIL) 90mcg, Inhale 2 Puffs by mouth every 4 hours as needed for Wheezing or Shortness of Breath., Disp: 8.5 g, Rfl: 5 insulin lispro (HumaLOG) 100 UNIT/ML injection, use as directed in insulin pump up to 100 units perday (Patient not taking: Reported on 11/06/2022), Disp: 90 mL, Rfl: 3 Glucagon (Baqsimi Two Pack) 3 MG/DOSE POWD, Use 1 Dose in each nostril as needed. For hypoglycemia,Disp: 2 Each, Rfl: 3 levothyroxine (SYNTHROID) 100 MCG tablet, Take 1 Tablet by mouth daily., Disp: 90 Tablet, Rfl: 3 Multiple Vitamin (Multivitamin Adult) TABS, as directed (Patient not taking: Reported on 11/06/2022), Disp: , Rfl: Allergies Allergies Allergen Reactions Sulfamethoxazole W-Trimethoprim Other reaction(s): Unknown Review Of Systems and Physical Examination Review of Systems Constitutional: Negative. HENT: Negative. Eyes: Negative. Respiratory: Negative. Cardiovascular: Negative. Gastrointestinal: Negative. Genitourinary: Negative. Musculoskeletal: Negative. Skin: Negative. Neurological: Negative. Endo/Heme/Allergies: Positive for polydipsia. Psychiatric/Behavioral: Negative. BP 120/71 (BP Location: left arm, BP position: sitting, Cuff Size: adult) Pulse 74 Temp 98 F (36.7 C) (Tympanic) Resp 16 Ht 5' 2 (1.575 m) Wt 143 lb (64.9 kg) LMP 04/23/2023 SpO2 100% BMI 26.16 kg/m Physical Exam Vitals and nursing note reviewed. Constitutional: Appearance: Normal appearance. She is normal weight. HENT: Head: Normocephalic and atraumatic. Right Ear: Tympanic membrane, ear canal and external ear normal. Left Ear: Tympanic membrane, ear canal and external ear normal. Nose: Nose normal. Mouth/Throat: Mouth: Mucous membranes are moist. Pharynx: Oropharynx is clear. Eyes: Extraocular Movements: Extraocular movements intact. Conjunctiva/sclera: Conjunctivae normal. Pupils: Pupils are equal, round, and reactive to light. Cardiovascular: Rate and Rhythm: Normal rate and regular rhythm. Pulses: Normal pulses. Heart sounds: Normal heart sounds. Pulmonary: Effort: Pulmonary effort is normal. Breath sounds: Normal breath sounds. Abdominal: General: Abdomen is flat. Bowel sounds are normal. Palpations: Abdomen is soft. Musculoskeletal: General: Normal range of motion. Cervical back: Normal range of motion and neck supple. Skin: General: Skin is warm and dry. Capillary Refill: Capillary refill takes less than 2 seconds. Neurological: General: No focal deficit present. Mental Status: She is alert and oriented to person, place, and time. Psychiatric: Mood and Affect: Mood normal. Behavior: Behavior normal. Thought Content: Thought content normal. Judgment: Judgment normal. Assessment and Plan Reyes Braga and I have come up with following assessment and plan Reyes was seen today for complete exam. Diagnoses and all orders for this visit: Mild intermittent asthma without complication - PFT PER PROTOCOL SERVICE REQUEST; Future Type 1 diabetes mellitus without complication (HCC) - ENDOCRINE SERVICE REQUEST - OPHTHALMOLOGY SERVICE REQUEST - PODIATRY SERVICE REQUEST Hypothyroidism, unspecified type Routine adult health maintenance No follow-ups on file. More than more than 1/2 of this time was spent educating on current diagnosis and treatment. -Continue with all medications prescribed -Provided details for the plan of care -Patient given the opportunity to ask questions and express concerns -Follow up if symptoms worsen or fail to improve. -Discussed the importance of following up with provider -Education given concerning testing and findings -Patient education on benefits as well as side effect of medications if prescribed -Patient voices understanding of plan as outlined above and states all questions and education havebeen satisfied PAPITO [facility]Pediatrics [facility] * Matt Momin - 06/18/2023 2:26 PM EDT Patient was identified by name and date of . Matt Momin Patient in exam room, vital signs taken, ready for MD exam. documented in this [id number] Telephone encounter Note* Telephone Encounter - Lizett Abbott RN - 06/08/2023 1:21 PM EDT Left message for pt to call me directly if needing anything/questions ect [employer] Work Phone: 1(324) 938-903510-15-2023 Miscellaneous Notes* Telephone Encounter - Lizett Abbott RN - 06/08/2023 1:21 PM EDT Left message for pt to call me directly if needing anything/questions ect * Telephone Encounter - Keli Zuluaga RN - 06/03/2023 2:09 PM EDT Attempted to contact pt. Phone went straight to . left to [facility] or send us a [employer] message with her questions. Keli Zuluaga RN * Telephone Encounter - Keli Gay - 06/03/2023 11:46 AM EDT Patient called back. Message given. She does not feel this is an emergency. She was on google and saw that some of what she is experiencing could be possible side effects. She said it could be that she is just coming down with a cold. She would like to speak to someone regarding some questions about ovulation. States last time the calls when straight to her voicemail and she is not sure why, but would like someone to try to call her back. * Telephone Encounter - Ilya Marie RN - 06/03/2023 11:29 AM EDT Lvm for patient to please go to ER for urgent evaluation Ilya Marie RN * Telephone Encounter - Keysha Garcia MD - 06/03/2023 10:46 AM EDT 06/03/2023 10:46 AMp Patient of [facility]. Please triage symptoms. Chest pain/shortness of breath needs urgent evaluation. Let her know a progesterone only pill should not cause chest symptoms, belly button pain or congestion. Can potentially cause mood symptoms but should improve with consistent ongoing usage. Please also make sure she has a f/u scheduled with dr Linette MD * Telephone Encounter - Karrie Montemayor - 06/03/2023 9:22 AM EDT Patient calling with c/o my chest feels heavy, I have congestion, pain in my belly button, extremely giordano and irritable, foggy and sluggish since starting my control Asking to speak with a provider for advice on wether she should continue taking the OCP. States she started taking it 3 days ago and was without symptoms prior to taking it. She can be reached at [phone] documented in this [id number] Telephone encounter Note* Telephone Encounter - Keli Zuluaga RN - 06/03/2023 2:09 PM EDT Attempted to contact pt. Phone went straight to . VM left to [facility] or send us a [employer] message with her questions. Keli Zuluaga RN [id number] Miscellaneous Notes* Telephone Encounter - Keli Zuluaga RN - 06/03/2023 2:09 PM EDT Attempted to contact pt. Phone went straight to . VM left to [facility] or send us a mychart message with her questions. Keli Zuluaga RN * Telephone Encounter - Keli Gay - 06/03/2023 11:46 AM EDT Patient called back. Message given. She does not feel this is an emergency. She was on google and saw that some of what she is experiencing could be possible side effects. She said it could be that she is just coming down with a cold. She would like to speak to someone regarding some questions about ovulation. States last time the calls when straight to her voicemail and she is not sure why, but would like someone to try to call her back. * Telephone Encounter - Ilya Marie RN - 06/03/2023 11:29 AM EDT Lvm for patient to please go to ER for urgent evaluation Ilya Marie RN * Telephone Encounter - Keysha Garcia MD - 06/03/2023 10:46 AM EDT 06/03/2023 10:46 AMp Patient of [facility]. Please triage symptoms. Chest pain/shortness of breath needs urgent evaluation. Let her know a progesterone only pill should not cause chest symptoms, belly button pain or congestion. Can potentially cause mood symptoms but should improve with consistent ongoing usage. Please also make sure she has a f/u scheduled with dr Linette MD * Telephone Encounter - Karrie Montemayor - 06/03/2023 9:22 AM EDT Patient calling with c/o my chest feels heavy, I have congestion, pain in my belly button, extremely giordano and irritable, foggy and sluggish since starting my control Asking to speak with a provider for advice on wether she should continue taking the OCP. States she started taking it 3 days ago and was without symptoms prior to taking it. She can be reached at [phone] documented in this [id number] Telephone encounter Note* Telephone Encounter - Keli Gay - 06/03/2023 11:46 AM EDT Patient called back. Message given. She does not feel this is an emergency. She was on [employer] and saw that some of what she is experiencing could be possible side effects. She said it could be that she is just coming down with a cold. She would like to speak to someone regarding some questions about ovulation. States last time the calls when straight to her voicemail and she is not sure why, but would like someone to try to call her back. [id number] Miscellaneous Notes* Telephone Encounter - Keli Gay - 06/03/2023 11:46 AM EDT Patient called back. Message given. She does not feel this is an emergency. She was on [employer] and saw that some of what she is experiencing could be possible side effects. She said it could be that she is just coming down with a cold. She would like to speak to someone regarding some questions about ovulation. States last time the calls when straight to her voicemail and she is not sure why, but would like someone to try to call her back. * Telephone Encounter - Ilya Marie RN - 06/03/2023 11:29 AM EDT Lvm for patient to please go to ER for urgent evaluation Ilya Marie RN * Telephone Encounter - Keysha Garcia MD - 06/03/2023 10:46 AM EDT 06/03/2023 10:46 AMp Patient of [facility]. Please triage symptoms. Chest pain/shortness of breath needs urgent evaluation. Let her know a progesterone only pill should not cause chest symptoms, belly button pain or congestion. Can potentially cause mood symptoms but should improve with consistent ongoing usage. Please also make sure she has a f/u scheduled with dr Linette MD * Telephone Encounter - Karrie Montemayor - 06/03/2023 9:22 AM EDT Patient calling with c/o my chest feels heavy, I have congestion, pain in my belly button, extremely giordano and irritable, foggy and sluggish since starting my control Asking to speak with a provider for advice on wether she should continue taking the OCP. States she started taking it 3 days ago and was without symptoms prior to taking it. She can be reached at [phone] documented in this [id number] Telephone encounter Note* Telephone Encounter - Ilya Marie RN - 06/03/2023 11:29 AM EDT Lvm for patient to please go to ER for urgent evaluation Ilya Marie RN [id number] Telephone encounter Note* Telephone Encounter - Keysha Garcia MD - 06/03/2023 10:46 AM EDT 06/03/2023 10:46 AMp Patient of [facility]. Please triage symptoms. Chest pain/shortness of breath needs urgent evaluation. Let her know a progesterone only pill should not cause chest symptoms, belly button pain or congestion. Can potentially cause mood symptoms but should improve with consistent ongoing usage. Please also make sure she has a f/u scheduled with dr Linette MD [employer] Work Phone: [phone] Telephone encounter Note* Telephone Encounter - Karrie Montemayor - 06/03/2023 9:22 AM EDT Patient calling with c/o my chest feels heavy, I have congestion, pain in my belly button, extremely giordano and irritable, foggy and sluggish since starting my control Asking to speak with a provider for advice on wether she should continue taking the OCP. States she started taking it 3 days ago and was without symptoms prior to taking it. She can be reached at [phone] [employer] Work Phone: 1(738) 863-793410-02-2023 History of Present illness Narrative* Sandra Posada - 05/26/2023 9:55 AM EDT Patient was identified by name and date of . Sandra Posada Blood was drawn on right arm, patient tolerated well. Patient was identified by name and date of . 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 ROS: Gl: negative symptoms (no abdominal pain, anorexia, n/v, indigestion, constipation, or diarrhea) : no urinary symptoms OBJECTIVE: BP 142/86 Pulse 66 Wt 142 lb (64.4 kg) LMP 04/23/2023 BMI 25.97 kg/m GEN: NAD, HEENT: NC/AT EXT: NT/NE x 4, no edema ASSESSMENT Encounter Diagnoses Name Primary? Dysmenorrhea Yes Menorrhagia with regular cycle Hyperthyroidism PLAN 1) check SIS first 2) cbc, tsh 3) Menorrhagia treatments reviewed with patient--OCP, progestin only pills, depo, mirena/liletta, cyclic nsaids, TXA, depo lupron, endoemetrial ablation, ([place] for uterine fibroids) and hysterectomy. Also expectant managment an option for those with mild menorrhagia and no anemia. Encouraged to try non-invasive method first. Explained that OCP and progestin only therapy will help with menorrhagia and dysmenorrhea. Reviewed risks, proper use, side effects of BCM with including hormonal methods (OCP's, Depo provera, Nuva ring and Ortho Evra), condoms/diaphragm, and IUD. Hormonal nuisance s/e explained (wt gain, increased appetite, n/v and AGUILAR) concerning/emergent S/e severe AGUILAR, stabbing pains in arm/legs/chest. Explained that initiation of OCP, ortho-evra and nuvaring on day one of bleeding or post tab prevents ovulation. . . Also reviewed cyclic nsaids to start 2d prior to onset of menses and to continue for first 3-5d of when menses is usually heaviest and/or most painful Explained details of endoemtrial ablation--R/B/A of procedure d/w pt including but not limited to infection, bleeding, and risk of uterine perforation (less than 1%). Explained that there is always apossiblity of occult injury. Risk of blood transfusion explained as risk of HIV <1/million, HepBand Hep c of <1/200K. Explained that 65-70% of pt may experience amenorrhea at one yr and that this decreases with time. The remaining pt have caddy/caddie supervisor menses or are unchanged. Explained that the ablation does not necessary improve dysmenorrhea. Reviewed that hysterectomy is always an option, particularlly if more conservative methods do not work. Will start POP for now until ultrasound available Discussed health maintenance including importance of daily exercise and diet modifications, monthlybreast exams, avoidance of excessive alcohol and smoking, safe sex practices, and multivitamin/calcium supplementation. Pt education and instruction regarding diagnosis, treatment, and follow up were discussed. Pt understands the plan and all her questions answered. Anna Stewart MD documented in this [id number] Telephone encounter Note* Telephone Encounter - Blanca Cook - 01/28/2023 11:25 AM EDT Order completed and faxed back to [phone] with confirmation received. Copy scanned into media tab in chart. [id number] Miscellaneous Notes* Telephone Encounter - Blanca Cook - 01/28/2023 11:25 AM EDT Order completed and faxed back to [phone] with confirmation received. Copy scanned into media tab in chart. * Telephone Encounter - Jerson Mccray - 01/24/2023 2:45 PM EDT Jacquie called to check status of order form for CGM sensor and transmitter. Please call and advise. Vitor [phone] * Telephone Encounter - Blanca Cook - 01/23/2023 11:43 AM EDT Detailed [facility] # [id number]. Given to provider to complete, please allow 7-10 business days to complete and be faxed back. documented in this [id number] Telephone encounter Note* Telephone Encounter - Jerson Mccray - 01/24/2023 2:45 PM EDT [facility] of [facility] for CGM sensor and transmitter. Please call and advise. Vitor [phone] [id number] Miscellaneous Notes* Telephone Encounter - Jerson Mccray - 01/24/2023 2:45 PM EDT [facility] called to check status of order form for CGM sensor and transmitter. Please call and advise. Vitor [phone] * Telephone Encounter - Blanca Cook - 01/23/2023 11:43 AM EDT Detailed written order for CGM (sensors & transmitter) from [employer] with Acct: # [id number]. Given to provider to complete, please allow 7-10 business days to complete and be faxed back. documented in this [id number] Telephone encounter Note* Telephone Encounter - Blanca Cook - 01/23/2023 11:43 AM EDT Detailed written order for CGM (sensors & transmitter) from [employer] with Acct: # [id number]. Given to provider to complete, please allow 7-10 business days to complete and be faxed back. [id number] Miscellaneous Notes* Telephone Encounter - Blanca Cook - 01/23/2023 11:43 AM EDT Detailed written order for CGM (sensors & transmitter) from [employer] with [employer]: # [id number]. Given to provider to complete, please allow 7-10 business days to complete and be faxed back. documented in this [id number] Note* Addendum Note - Kailey Hall, - 12/30/2022 2:44 PM EDTAddended by: KAILEY HALL on: 12/30/2022 02:44 PM Modules accepted: Orders [id number] Miscellaneous Notes* Addendum Note - Kailey Hall DO - 12/30/2022 2:44 PM EDTAddended by: KAILEY HALL on: 12/30/2022 02:44 PM Modules accepted: Orders documented in this [id number] History of Present illness Narrative* Austin Wood, PT - 12/18/2022 8:55 AM EDT Visit Number: [id number] Referring Provider: Deacon Paulino MD Diagnosis: Chronic right shoulder pain [M25.511, G89.29] Payor: [email or web address] / Plan: [employer] / Product Type: POS PMH: Asthma, DM type I Precautions: none Identification was verified by patient verbalizing her name and date of . SUBJECTIVE: Pain Scale: 0/10; location: R shoulder Other: no new issues, hep going well. OBJECTIVE: ROM: AROM (PROM noted in parenthesis) Date: 11/14/2022 NECK flex wfl ext wfl sidebending L wfl R wfl rotation L wfl R wfl SHOULDER ROM: ROM: AROM (PROM noted in parenthesis) Date: 11/14/2022 SHOULDER flex L 153 R 103* (wfl) abduction L 173 R 75* ER L 91 R 86* (IR)hand behind back L nt R nt *indicates pain during movement at end-range STRENGTH: Right Shoulder strength grossly 3+/5 due to pain and muscle guarding Right Shoulder ER 4+/5 and with axial distraction ER 5/5 INTERVENTIONS: Exercises/HEP: Butterfly self extension stretch thoracic seated x10 Prone Ts x10 Prone Is x10 Prone Ys x10 Side lying ER x10 Side lying abduction x10 ER RTB 2 x10 IR RTB 2 x10 Adduction blue x20 horiz abd gtb x10 mid row blue x20 shld ext blue x20 *serratus slide YTB x15 *table push ups x10 *table shoulder taps x10 bilat *Table open plank x10 bilat *front raise 2# x10 *Lateral raise 2# x10 *Curl press 2# x10 Reviewed and discussed plank positioning variations and focus on lower abdominal and serratus activation during plank as well as control during dolphin press. *exercise was added to HEP. Patient was provided handouts and returned proper demonstration Patient Education: HEP compliance and progression Pain addressed with above treatments this visit. ASSESSMENT: Presents without pain. Minimal cuing and feedback provided during session for GH/scapular positioning and control. Reports earlier fatigue and lactic acid response on R compared to L during session. Progressed with scapular and GH strengthening and stabilization training today without issue. 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 Goals: achieve in 6-8 visits Increase ROM Flexion Right to equal opposite side without pain Abduction Right to equal opposite side without pain External Rotation Right to WFL without pain Increase Strength to 5/5 Right shoulder in all directions without pain Improve Function ADL's to WFL to be able to lift and carry 2 year old without pain Improve Function ADL's to WFL to be able to get dressed and bathe without pain Improve Function ADL's to WFL to be able to drive and steer wheel without pain Improve Function ADL's to WFL to be able to reach and grab an object overhead without pain Decrease Pain to 0-3/10 90% of the time Frequency: 1 times per week for 6-8 visits Interventions: ROM, Strengthening, Flexibility, Functional Training, Manual Therapy, Modalities, Home exercises, Patient education, Pain control, Joint mobilization, and Postural re-education Continue to see patient for 6-8 visits to work toward goals per POC. Timed Code Treatment Minutes: 39 therex Total Treatment Time: 39 Austin Wood PT, DPT documented in this [id number] History of Present illness Narrative* Asif Lau - 12/06/2022 9:09 AM EDT Patient was identified by name and date of . Asif Judi * Kailey Hall DO - 12/06/2022 9:04 AM EDT Musculoskeletal Ultrasound Performed at Today s Visit:12/06/22 MRIO Purpose: US Guided Intervention Pain level: 4-5/10 Laterality: Right Structure: biceps tendon sheath injection Settings / Approach: linear probe 12 MHz, 2cm depth Interventions: Norton protocol documentation / Pre-Procedure Checklist: ID verified by two sources (select any two from list): MRN and Name Site: Right biceps tendon sheath Procedure: biceps tendon sheath injection using Kenalog Site(s) marked: yes Position: supine Consent: available History and Physical done within 30 days: available Other relevant documentation: available Relevant images: available Implants: not applicable Special Equipment: Musculoskeletal Ultrasound Guidance with image / CINE recording Blood products matched: not applicable Surgical/Procedure pause: yes Other pre-procedural information: given Patient concurs: yes Team present and concurs: Kailey Hall DO PM&R Attending (Procedure performed with Dr. Mckenna PGY-4 PM&R resident) Procedure Note Medications used: 1ml of 40mg/ml Kenalog ; 1ml of 2% lidocaine without epinephrine Description of procedure: After informed consent was obtained from the patient concerning the risksand benefits of this procedure (patient informed of risk of local bleeding, infection, lack of benefit, increase of blood sugars or cartilage decay), a preprocedural time-out was performed. The patient was then positioned and prepped in the usual sterile fashion, and target was identified with palpation and musculoskeletal ultrasound using settings described above. A 21-gauge 2 inch needle was advanced under ultrasound guidance to the right biceps tendon sheath via transverse approach to the bicipital groove. After non- bloody aspiration to confirm extravascular needle tip placement, 2 ml of the above mixture was injected without resistance. There was negligible blood loss and no complications. An adhesive bandage was placed over the injection site. The patient tolerated the procedure well, and remained stable throughout. Immediately after the procedure, patient noted improvement in pain. The patient left in baseline health status. Impression: Right biceps tendonitis. Patient was advised to watch for any signs of infection in the area of the injection (redness, streaky appearance of skin, etcetera) and call the office immediately for treatment if those symptoms develop. Kailey Hall DO Department of Physical Medicine and Rehabilitation documented in this [id number] History of Present illness Narrative* Asif Lau - 12/06/2022 9:09 AM EDT Patient was identified by name and date of . Asif Lau * Kailey Hall DO - 12/06/2022 9:04 AM EDT Musculoskeletal Ultrasound Performed at Today s Visit:12/06/22 MRIO Purpose: US Guided Intervention Pain level: 4-5/10 Laterality: Right Structure: biceps tendon sheath injection Settings / Approach: linear probe 12 MHz, 2cm depth Interventions: Norton protocol documentation / Pre-Procedure Checklist: ID verified by two sources (select any two from list): MRN and Name Site: Right biceps tendon sheath Procedure: biceps tendon sheath injection using Kenalog Site(s) marked: yes Position: supine Consent: available History and Physical done within 30 days: available Other relevant documentation: available Relevant images: available Implants: not applicable Special Equipment: Musculoskeletal Ultrasound Guidance with image / CINE recording Blood products matched: not applicable Surgical/Procedure pause: yes Other pre-procedural information: given Patient concurs: yes Team present and concurs: Kailey Hall DO PM&R Attending (Procedure performed with Dr. Mckenna PGY-4 PM&R resident) Procedure Note Medications used: 1ml of 40mg/ml Kenalog ; 1ml of 2% lidocaine without epinephrine Description of procedure: After informed consent was obtained from the patient concerning the risksand benefits of this procedure (patient informed of risk of local bleeding, infection, lack of benefit, increase of blood sugars or cartilage decay), a preprocedural time-out was performed. The patient was then positioned and prepped in the usual sterile fashion, and target was identified with palpation and musculoskeletal ultrasound using settings described above. A 21-gauge 2 inch needle was advanced under ultrasound guidance to the right biceps tendon sheath via transverse approach to the bicipital groove. After non- bloody aspiration to confirm extravascular needle tip placement, 2 ml of the above mixture was injected without resistance. There was negligible blood loss and no complications. An adhesive bandage was placed over the injection site. The patient tolerated the procedure well, and remained stable throughout. Immediately after the procedure, patient noted improvement in pain. The patient left in baseline health status. Impression: Right biceps tendonitis. Patient was advised to watch for any signs of infection in the area of the injection (redness, streaky appearance of skin, etcetera) and call the office immediately for treatment if those symptoms develop. Kailey Hall DO Department of Physical Medicine and Rehabilitation documented in this [id number] Telephone encounter Note* Telephone Encounter - Isis Ruiz PA-C - 11/29/2022 12:58 PM EDT I called the patient to discuss the recent denial of her shoulder MRI. It looks like her insurance company would like her to complete at least 6 weeks of physical therapy. She is already about 2 weeks in the PT at this point. I recommended that she continue to work with therapy for at least 6 weekstotal (would likely benefit from attending beyond this though) and then to reach back out to let usknow if she is still having trouble with the shoulder. At that point, if she is still having significant trouble with the shoulder, we can place a new order for the MRI. She is on board with this plan and will keep us updated. [facility] Work Phone: [phone]) 768-552704-07-2023 Miscellaneous Notes* Telephone Encounter - Isis Ruiz PA-C - 11/29/2022 12:58 PM EDT I called the patient to discuss the recent denial of her shoulder MRI. It looks like her insurance company would like her to complete at least 6 weeks of physical therapy. She is already about 2 weeks in the PT at this point. I recommended that she continue to work with therapy for at least 6 weekstotal (would likely benefit from attending beyond this though) and then to reach back out to let usknow if she is still having trouble with the shoulder. At that point, if she is still having significant trouble with the shoulder, we can place a new order for the MRI. She is on board with this plan and will keep us updated. documented in this [id number] Telephone encounter Note* Telephone Encounter - Blanca Cook - 11/25/2022 3:37 PM EDT Order completed and faxed back to [phone] with confirmation received. Copy scanned into media tab in chart. [id number] Miscellaneous Notes* Telephone Encounter - Blanca Cook - 11/25/2022 3:37 PM EDT Order completed and faxed back to [phone] with confirmation received. Copy scanned into media tab in chart. * Telephone Encounter - Blanca Cook - 11/20/2022 9:00 AM EDT Detailed written order for infusion supplies (infusion set non-needle cannula, syringe w/ needle for insulin pump) from [facility] with Acct: # [id number]. Given to provider to complete, please allow 7-10 business days to complete and be faxed back. documented in this [id number] History of Present illness Narrative* Austin Wood, PT - 11/21/2022 9:45 AM EDT Visit Number: 3 Referring Provider: Deacon Paulino MD Diagnosis: Chronic right shoulder pain [M25.511, G89.29] Payor: [employer] / Plan: [employer] / Product Type: POS PMH: Asthma, DM type I Precautions: none Identification was verified by patient verbalizing her name and date of . SUBJECTIVE: Pain Scale: 0/10; location: R shoulder Other: HEP compliant OBJECTIVE: ROM: AROM (PROM noted in parenthesis) Date: 11/14/2022 NECK flex wfl ext wfl sidebending L wfl R wfl rotation L wfl R wfl SHOULDER ROM: ROM: AROM (PROM noted in parenthesis) Date: 11/14/2022 SHOULDER flex L 153 R 103* (wfl) abduction L 173 R 75* ER L 91 R 86* (IR)hand behind back L nt R nt *indicates pain during movement at end-range STRENGTH: Right Shoulder strength grossly 3+/5 due to pain and muscle guarding Right Shoulder ER 4+/5 and with axial distraction ER 5/5 INTERVENTIONS: Modalities: Deferred Manual Therapy: Scapular PNF Myofascial release for lower trap, rhomboid Grade 3-4 P/A mob T1-T6 HVLA T4/5 Cervical traction Suboccipital release Exercises/HEP: Supine assisted shoulder flexion -reviewed seated scapular retractions -reviewed supine ER with towel roll under elbow -reviewed Side lying ER x12 - cuing and feedback for scapular control and end range work Side lying abduction x10 - cuing and feedback for scapular control and GH rotation adduction GTB -reviewed *Cervical retraction supine x10 *Prone scapular retractions x10 *exercise was added to HEP. Patient was provided handouts and returned proper demonstration Next visit: Self stretch thoracic extension Patient Education: HEP compliance and progression Pain addressed with above treatments this visit. ASSESSMENT: Presents without report of any change in symptoms. Returns good demo with HEP. Provided postural strengthening activity with retractions of cervical and scapular region. No significant change in AROMwithout pain at end of session. 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 Goals: achieve in 6-8 visits Increase ROM Flexion Right to equal opposite side without pain Abduction Right to equal opposite side without pain External Rotation Right to WFL without pain Increase Strength to 5/5 Right shoulder in all directions without pain Improve Function ADL's to WFL to be able to lift and carry 2 year old without pain Improve Function ADL's to WFL to be able to get dressed and bathe without pain Improve Function ADL's to WFL to be able to drive and steer wheel without pain Improve Function ADL's to WFL to be able to reach and grab an object overhead without pain Decrease Pain to 0-3/10 90% of the time Frequency: 1 times per week for 6-8 visits Interventions: ROM, Strengthening, Flexibility, Functional Training, Manual Therapy, Modalities, Home exercises, Patient education, Pain control, Joint mobilization, and Postural re-education Continue to see patient for 6-8 visits to work toward goals per POC. Timed Code Treatment Minutes: 20 manual 15 therex Total Treatment Time: 35 Austin Wood PT, DPT documented in this [id number] Telephone encounter Note* Telephone Encounter - Blanca Cook - 11/20/2022 9:00 AM EDT Detailed written order for infusion supplies (infusion set non-needle cannula, syringe w/ needle for insulin pump) from [employer] with Acct: # [id number]. Given to provider to complete, please allow 7-10 business days to complete and be faxed back. [id number] Miscellaneous Notes* Telephone Encounter - Blanca Cook Chaya - 11/20/2022 9:00 AM EDT Detailed written order for infusion supplies (infusion set non-needle cannula, syringe w/ needle for insulin pump) from [employer] [employer] with Acct: # [id number]. Given to provider to complete, please allow 7-10 business days to complete and be faxed back. documented in this [id number] History of Present illness Narrative* Austin Wood, PT - 11/19/2022 2:14 PM EDT Visit Number: 2 Referring Provider: Deacon Paulino MD Diagnosis: Chronic right shoulder pain [M25.511, G89.29] Payor: [employer] / Plan: [employer] / Product Type: POS PMH: Asthma, DM type I Precautions: none Identification was verified by patient verbalizing her name and date of . SUBJECTIVE: Pain Scale: 0/10; location: R shoulder Other: HEP compliant OBJECTIVE: ROM: AROM (PROM noted in parenthesis) Date: 11/14/2022 NECK flex wfl ext wfl sidebending L wfl R wfl rotation L wfl R wfl SHOULDER ROM: ROM: AROM (PROM noted in parenthesis) Date: 11/14/2022 SHOULDER flex L 153 R 103* (wfl) abduction L 173 R 75* ER L 91 R 86* (IR)hand behind back L nt R nt *indicates pain during movement at end-range STRENGTH: Right Shoulder strength grossly 3+/5 due to pain and muscle guarding Right Shoulder ER 4+/5 and with axial distraction ER 5/5 INTERVENTIONS: Modalities: Deferred Manual Therapy: Joint Mobilizations A/P and inferior GH mob grade 3-4 Long arm traction Passive flexion, abduction, and ER R shoulder Cervical traction Suboccipital release First rib mob grade 3-4 Exercises/HEP: Supine assisted shoulder flexion -reviewed seated scapular retractions -reviewed supine ER with towel roll under elbow -reviewed *Side lying ER x10 - cuing and feedback for scapular control and end range work *Side lying abduction x10 - cuing and feedback for scapular control and GH rotation *adduction GTB x10 *exercise was added to HEP. Patient was provided handouts and returned proper demonstration Next visit: Thoracic mob and manual traction again Self stretch thoracic extension Cervical retractions Scapular progression Patient Education: HEP compliance and progression Pain addressed with above treatments this visit. ASSESSMENT: Patient presents without significant improvement in symptoms since IE. Returns good demo with HEP. Seems to respond to cervical traction with improved range until pain in shoulder flexion and decreased intensity reported. Will continue to assess possible cervical and thoracic involvement. Continuesto benefit from skilled PT to work towards below established PT goals PLAN OF CARE: Goals: Short Term Goals: achieve in 2 visits Decrease Pain to 1-7/10 75% of the time with less frequent reports of increasing intensity Pt independent with home exercise program Longterm Goals: achieve in 6-8 visits Increase ROM Flexion Right to equal opposite side without pain Abduction Right to equal opposite side without pain External Rotation Right to WFL without pain Increase Strength to 5/5 Right shoulder in all directions without pain Improve Function ADL's to WFL to be able to lift and carry 2 year old without pain Improve Function ADL's to WFL to be able to get dressed and bathe without pain Improve Function ADL's to WFL to be able to drive and steer wheel without pain Improve Function ADL's to WFL to be able to reach and grab an object overhead without pain Decrease Pain to 0-3/10 90% of the time Frequency: 1 times per week for 6-8 visits Interventions: ROM, Strengthening, Flexibility, Functional Training, Manual Therapy, Modalities, Home exercises, Patient education, Pain control, Joint mobilization, and Postural re-education Continue to see patient for 6-8 visits to work toward goals per POC. Timed Code Treatment Minutes: 14 manual 25 therex Total Treatment Time: 39 Austin Wood PT, DPT documented in this [id number] History of Present illness Narrative* Alie Aldana - 11/14/2022 2:15 PM EDT Visit Number: 1 Evaluation Referring Provider: Deacon Paulino MD Diagnosis: Chronic right shoulder pain [M25.511, G89.29] Payor: [employer] / Plan: [employer] [facility] [employer] / Product Type: POS PMH: Asthma, DM type I Precautions: none Identification was verified by patient verbalizing her name and date of . Reyes Braga is a 41 year old female Imaging: Xray 11/14/22 for right shoulder, not yet resulted Past Medical History: Diagnosis Date Asthma 2017 Diabetes mellitus type 1 (HCC) 2014 Daria's disease Hyperlipidemia Hypothyroidism Past Surgical History: Procedure Laterality Date KNEE SURGERY Right 2016 per [facility] records KNEE SURGERY Left 2012 per [facility] records MAMMOPLASTY, REDUCTION 1999 Current Outpatient Medications: insulin aspart (NovoLOG) 100 UNIT/ML injection, use as directed in insulin pump up to 100 units perday, Disp: 90 mL, Rfl: 5 montelukast (SINGULAIR) 10 MG tablet, Take 1 Tablet by mouth daily., Disp: 90 Tablet, Rfl: 3 atorvastatin (LIPITOR) 40 mg tablet, Take 1 Tablet by mouth daily., Disp: 90 Tablet, Rfl: 3 albuterol (PROVENTIL HFA) INHALATION HFA inhaler (VENTOLIN,PROAIR,PROVENTIL) 90mcg, Inhale 2 Puffs by mouth every 4 hours as needed for Wheezing or Shortness of Breath., Disp: 8.5 g, Rfl: 5 insulin lispro (HumaLOG) 100 UNIT/ML injection, use as directed in insulin pump up to 100 units perday (Patient not taking: Reported on 11/06/2022), Disp: 90 mL, Rfl: 3 Glucagon (Baqsimi Two Pack) 3 MG/DOSE POWD, Use 1 Dose in each nostril as needed. For hypoglycemia,Disp: 2 Each, Rfl: 3 levothyroxine (SYNTHROID) 100 MCG tablet, Take 1 Tablet by mouth daily., Disp: 90 Tablet, Rfl: 3 Continuous Blood Gluc Sensor (Dexcom G6 Sensor) MISC, 1 Units every 10 days., Disp: 9 Each, Rfl: 5 Multiple Vitamin (Multivitamin Adult) TABS, as directed (Patient not taking: Reported on 11/06/2022), Disp: , Rfl: Onset/TAYE: Insidious onset 4.5 months ago, it's her dominant arm and she has a 2 year old and has been lifting her into her car seat. 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 Social History: lives with family (2 year old and ) Hand Dominance: Right Pain: Location: scapula, rotator cuff tendon, and clavicle Ratin-8/10 constant but varies in intensity depending on the motion Pattern: No numbness/tingling Increased by: reaching, pushing downward, and specific motions Decreased By: medication, ice, and PT at home with her Functional limitations: driving, dressing, ADL's, difficulty with overhead reach, and unable to getcomfortable sleeping Patient Goals: decrease pain increase function get an MRI not have to get an injection/cortizone shot The risks and benefits of physical therapy have been discussed with the patient: Yes TESTS and MEASURES: Observation: Patient pleasant and agreeable to therapy. Posture Observation: Scapular: Normal Cervical: Normal Head: neutral Palpation: No Pain ROM: AROM (PROM noted in parenthesis) Date: 11/14/2022 NECK flex wfl ext wfl sidebending L wfl R wfl rotation L wfl R wfl SHOULDER ROM: ROM: AROM (PROM noted in parenthesis) Date: 11/14/2022 SHOULDER flex L 153 R 103* (wfl) abduction L 173 R 75* ER L 91 R 86* (IR)hand behind back L nt R nt *indicates pain during movement at end-range STRENGTH: Right Shoulder strength grossly 3+/5 due to pain and muscle guarding Right Shoulder ER 4+/5 and with axial distraction ER 5/5 FUNCTIONAL MOVEMENTS: difficulty in driving pain with reaching across midline SPECIAL TESTS: Impingement test right positive Drop Arm right positive* External rotation strength test with longitudinal axial distraction right positive *likely due to pain from impingement JOINT MOBILITY: Passive glenohumeral mobility normal ASSESSMENT: Reyes Braga is a 41 year old female with complaints of subacute right shoulder pain. Evaluation found pain provocation and decreased active range of motion and movement pattern compensation consistent with rotator cuff/acromial bursa impingement. Patient experienced muscle guarding around 90 degrees of flexion and abduction during active and passive movement. Patient demonstrated muscle weakness in right shoulder external rotation but strength increased with an axial distraction applied to her glenohumeral joint space. Patient would benefit from physical therapy to progress towards established goals, increase active range of motion, improve movement patterns to decrease compensation, incr ease shoulder function, and decrease pain. Problems include: Pain, Decreased Range of Motion, Decreased Strength, and Decreased Function Prognosis for therapy: Good PLAN of CARE: Goals: Short Term Goals: achieve in 2 visits Decrease Pain to 1-7/10 75% of the time with less frequent reports of increasing intensity Pt independent with home exercise program [employer] Goals: achieve in 6-8 visits Increase ROM Flexion Right to equal opposite side without pain Abduction Right to equal opposite side without pain External Rotation Right to WFL without pain Increase Strength to 5/5 Right shoulder in all directions without pain Improve Function ADL's to WFL to be able to lift and carry 2 year old without pain Improve Function ADL's to WFL to be able to get dressed and bathe without pain Improve Function ADL's to WFL to be able to drive and steer wheel without pain Improve Function ADL's to WFL to be able to reach and grab an object overhead without pain Decrease Pain to 0-3/10 90% of the time Frequency: 1 times per week for 6-8 visits Interventions: ROM, Strengthening, Flexibility, Functional Training, Manual Therapy, Modalities, Home exercises, Patient education, Pain control, Joint mobilization, and Postural re-education The evaluation findings and treatment plan were discussed with the patient. The patient indicated understanding and agreement with the plan. Today's Treatment: Supine assisted shoulder flexion, seated scapular retractions, supine ER with towel roll under elbow. Patient Education: Educated patient on pathophysiology of current problem. Educated on expected recovery process and planned treatments. Provided patient with a printout of exercises for home exercise program. Educated patient on observed muscle movement pattern impairments and how to normalize them. Timed Code Treatment Minutes: 8 therex Total Treatment Time: 45 EZEQUIEL Harden documented in this [id number] History of Present illness Narrative* Deacon Paulino MD - 11/06/2022 9:28 PM EDT Teaching Physician Note: I saw and evaluated the patient. I personally obtained the lucia and critical portions of the historyand physical exam. I reviewed the resident's documentation and discussed the patient with the resident. I agree with the resident's medical decision making as documented in the resident's note. Deacon Paulino MD For HPI/past medical/surgical/social/ and family histories, allergies, medications and the review of systems please see the scanned intake sheet from today. A copy of this consult letter has been mailed or shared with the referring provider via the electronic record. She has a fair amount of anterior shoulder pain consistent with biceps tenosynovitis or a SLAP tear. We discussed this. She was interested in injection. She is previously had problems with elevated blood glucose with steroids but can control it with her insulin pump. She is also going to try formaltherapy and was given a home program so that if these do not work we can get an MRI of her shoulder. She was in agreement with this plan. * Krystle Venegas MD - 11/06/2022 11:12 AM EDT New Patient History and Physical Chief Complaint: right shoulder pain History of Present Illness: This is a 41 year old female, right hand dominant who reports 4 months of shoulder pain. Patient has not had history of trauma to this shoulder. Pain rated severe and is worse with over head activities Night pain: Yes Rest pain: Yes Neurological complaints: none. Vascular complaints: none. Previous treatments include: therapy: several weeks at home, no injections Patient past medical history, family history and social history were reviewed and updated as noted below. Review of patient's past medical history indicates: Diabetes mellitus type 1 (HCC) (2015) Hyperlipidemia Daria's disease Hypothyroidism Asthma (2018) Family History Problem Relation Age of Onset Fibroids Mother Hypertension Mother Lipid Disorder Mother Hypertension Father Lipid Disorder Father Rheumatologic Disease Father Cancer Maternal Grandmother Diabetes Mellitus (Type 2) Paternal Grandmother Breast Cancer Negative Family History of Colon Cancer Negative Family History of Social History Occupational History Not on file Tobacco Use Smoking status: Never Smokeless tobacco: Never Vaping Use Vaping Use: Never used Substance and Sexual Activity Alcohol use: Not on file Drug use: Not on file Sexual activity: Yes Partners: Male Review of Systems: Constitutional - denies fever, chills, HENT: denies hearing loss, tinnitus or sore throat Cardiac - denies chest pain, palpitations Respiratory - denies dyspnea, cough Abdominal - denies recent nausea, vomiting, diarrhea : denies dysuria, urgency or incontinence Skin: Denies change in nails/skin Heme/Onc - denies bruising, nosebleeds, weight loss Neuro- per HPI above MSK: per HPI Above Objective: Exam: Gen: alert, no apparent distress. Appropriate affect. No scleral icterus. Non-labored breathing. Skin intact. No excessive bleeding. No lymphadenopathy in area of examination. right Shoulder exam: Inspection: normal bony and muscular contours. no TTP with palpation of AC joint mild TTP with palpation of Subacromial, moderate TTP at bicipital groove Shoulder ROM: - Active/Passive FF: Right 90/160 Left 160/160 - IR: Right sacrum Left upper thoracic - ER: Right 40 Left 50 Sensation grossly intact to LT over lateral Rotator Cuff Motor Strength Testing - Supraspinatus: 5/5 - External Rotation (arm at side): 5/5 - Subascapularis: 5/5 Special tests: Varela: positive Neer: positive Sharon's: positive Speed's: positive Cartwright's: positive Apprehension & relocationnegative Neck: non tender Imaging: No new imaging Assessment: Type 1 diabetes mellitus without complication (HCC) [E10.9] Plan: The natural history and treatment options (surgical and non-surgical) were discussed including risks, benefits, alternatives and prognosis and all questions were answered. The following plan was agreed upon: We had a long discussion regarding her biceps tenosynovitis and rotator cuff tendinitis, including non-operative management. She would like to proceed with injection of the long head of biceps tendon. Given her history of T1D, we discussed the importance of maintaining her shoulder ROM as her risk of adhesive capsulitis is high. XR R shoulder MRI R shoulder Initiation of home therapy program US guided biceps injection PT referral Return to clinic after MRI Krystle Venegas MD Orthopaedics Hand and Upper Extremity 11/06/22 11:42 AM documented in this [id number] Instructions* Patient Instructions* Borok Alvarez RN - 11/06/2022 8:15 AM EDT Call [phone] to reach the office of Dr. Paulino and Isis Ruiz PA-C. To reach Kecia Baltazar RN, Hand and Upper Extremity Surgery Nurse Coordinator, please send a [employer] message to your provider and address it to Kecia. She monitors the [employer] messages regularly. If you have been offered surgery, you can expect to be contacted by the office in the near future at your provided phone number to schedule surgery at your convenience. Please contact the office to update your contact information if needed. Your Preop Exam (PSE) or PSE phone call will be scheduled by the executive secretary when you schedule surgery. Please do no miss your PSE exam or phone call. The day prior to surgery, you will receive a phone call from the operating room with your expected surgery time and arrival time. If you were referred to therapy call [phone] to schedule your therapy (both PT and OT). Their office relies on you calling them to schedule. If you were referred for an EMG call [phone] to schedule your EMG. Their office relies on you calling them to schedule. Once scheduled, please call our office to schedule your follow up appointment for two weeks afterwards to review your study with your surgeon. If you were referred for an MRI/CT scan or diagnostic ultrasound, please call [phone] to schedule your study. Be sure to [facility] if there is a long delay in availability. Radiology relies on you calling them to schedule. If you received a steroid injection today, it can take several days to take effect. Please be patient. If you are diabetic, please monitor your blood sugar for a transient elevation over the next fewdays from the injection. If you have diagnosed with a fragility fracture, such as a wrist or shoulder fracture, please contact your primary care provider regarding medical management of osteoporosis. For specific questions regarding your bill, please contact Medical Billing at [phone]. Additional information on your condition may be found online at [email or web address] * Attachments The following attachments cannot be sent through Care Everywhere. * Rotator Cuff Tendinitis Strengthening Exercises (Venezuelan) * Rotator Cuff Tendinitis Stretching Exercises (Venezuelan) documented in this [id number] Telephone encounter Note* Telephone Encounter - Kathy Hayward PharmD - 09/06/2022 9:41 AM EST Patient's insurance does not cover Humalog Vials. The preferred brands are: Novolog vials If appropriate, please switch to a preferred medication and send new prescription to [facility]. Thank you [id number] Miscellaneous Notes* Telephone Encounter - Kathy Hayward PharmD - 09/06/2022 9:41 AM EST Patient's insurance does not cover Humalog Vials. The preferred brands are: Novolog vials If appropriate, please switch to a preferred medication and send new prescription to [facility]. Thank you documented in this [id number] Instructions* Patient Instructions* Dejuan Boles MD - 07/22/2022 10:33 AM EST Consider - sudafed or non-drowsy formulation (pseudoephedrine = sudafed or phenlephrine) - consider sinus rinses - only take additional antibiotic if symptoms not improving over time, after 10 days or new fever develops. documented in this [id number] History of Present illness Narrative* Dejuan Boles MD - 07/22/2022 10:07 AM EST [facility] Note Name: Reyes Braga : 1980 Subjective: CC: New patient, to establish relationship and Sick Visit Chart Review: 06/2022 Established care with me Concerns today: Here today due to illness and to establish care. Diagnosed with T1DM when 35. Using pump with humalog. Symptoms started on Friday with post nasal drip. On following day, green & brown sputum. She got amoxicillin on Friday, still does not feel great. Still with sinus pressure (bending over head going to explode). At 3AM face in so much pain. Teeth, jaw in significant pain. Eyes woke this morningwith purulent. Lost sense of smell. Negative covid test. In morning and overnight symptoms are severe. Taking mucinex and tussin at night. Saline spray. Has not had to use inhaler. Mucous started brown, then clear, today green. Review of Systems Constitutional: Positive for malaise/fatigue. Negative for fever. HENT: Positive for congestion and sinus pain. Respiratory: Positive for cough. Negative for wheezing. Social History Social History Narrative 07/22/22 lives with , dogs and daughter born in 2020 and adopted by Reyes and her . Reviewed all past pertinent histories. Objective: Physical Exam: BP 99/45 Pulse 74 Temp 97.1 F (36.2 C) (Temporal) Ht 5' 1 (1.549 m) Wt 144 lb 6.4 oz (65.5kg) LMP 07/11/2022 BMI 27.28 kg/m BMI: 27.28 Gen: Alert, interactive female appearing stated age in no acute distress HEENT: atraumatic, R TM clear, L TM clear, extraocular muscles grossly intact, PEERL, no conjunctival injection or exudate, pain to palpation of frontal and maxillary Neck: no mass, no palpable lymphadenopathy CV: heart rate normal for age, regular rhythm, no murmur appreciated, PRODUCTION SUPV <3 sec, no peripheral edema Pulm: lungs clear bilaterally to auscultation, symmetric chest rise, no retractions or increased work of breathing, cough Abd: soft, non-tender, no masses Skin: warm and dry, no rashes Neuro: alert, able to move all limbs with at least 3/5 strength, normal tone, verbal responses are appropriate BP Readings from Last 5 Encounters: 07/22/22 99/45 06/18/22 111/69 02/21/22 113/66 10/16/21 100/64 08/29/21 120/82 Wt Readings from Last 5 Encounters: 07/22/22 144 lb 6.4 oz (65.5 kg) 06/18/22 141 lb (64 kg) 02/21/22 138 lb 14.4 oz (63 kg) 10/16/21 139 lb 11.2 oz (63.4 kg) 08/29/21 138 lb 14.4 oz (63 kg) Assessment and Plan: Reyes Braga is a 41 year old female with T1D, daria hypothyroidism and the following problems: Acute recurrent sinusitis, unspecified location Discussed that amoxicillin has not resolved symptoms because it is either VIRAL sinusitis OR resistant bacteria. - sinus rinses with saline - trial sudafed or similar, ekaterina at night for symptoms - if NOT improving in 3-5 more days, then take amoxicillin-clavulanate (Augmentin) 875-125 MG per tablet; Take 1 Tablet by mouth 2 times daily for 7 days. Type 1 diabetes mellitus without complication (HCC) - atorvastatin (LIPITOR) 40 mg tablet; Take 1 Tablet by mouth daily. - insulin lispro (HumaLOG) 100 UNIT/ML injection; use as directed in insulin pump up to 100 units per day - Glucagon (Baqsimi Two Pack) 3 MG/DOSE POWD; Use 1 Dose in each nostril as needed. For hypoglycemia Uterine leiomyoma, unspecified location Reyes would like to follow up with me for PAP and [facility] for fibroids (or can go to [facility] for both) - GYNECOLOGY SERVICE REQUEST Hypothyroidism, unspecified type Continue current meds, checked in 09/2021 tSH within normal limits. - levothyroxine (SYNTHROID) 100 MCG tablet; Take 1 Tablet by mouth daily. Mild intermittent asthma without complication Not currently flared - montelukast (SINGULAIR) 10 MG tablet; Take 1 Tablet by mouth daily. - albuterol (PROVENTIL HFA) INHALATION HFA inhaler (VENTOLIN,PROAIR,PROVENTIL) 90mcg; Inhale 2 Puffs by mouth every 4 hours as needed for Wheezing or Shortness of Breath. Follow up in about 3 months (around 10/22/2022) for in-person visit, preventive PAP. Dejuan Boles MD. Internal Medicine- Pediatrics Documentation: Mode: In Person Time-Based Billing Justifications: Charting in Epic Patient visit (including performing a medically appropriate exam) Obtaining history (or reviewing separately obtained history) * Dejuan Reese - 07/22/2022 9:43 AM EST Patient was identified by name and date of . Dejuan Reese Patient at risk for falls:No Falls Risk protocol implemented: No documented in this [id number] History of Present illness Narrative* Sandradoug LorriPAPITO - 06/18/2022 9:05 AM EDT SUBJECTIVE: 41 year old History was provided by the patient. Symptoms include cough, ear pain, gums throbbing, sinus pain, nasal congestion with purulent green-brown drainage. Onset was 10 days ago, with double sickening course since that time. She felt like her symptoms were improving but then got worse again like it is starting all over again. Associated symptoms include post nasal drainage.Known Sick Contacts household exposure- daughter is also sick. She took 3 COVID tests last week which were negative. She has tried her nebulizer twice last week, advil, sudafed, saline spray. Portions of record reviewed for pertinent issues: active problem list, medication list, allergies, family history, and social history. Review of patient's past medical history indicates: Diabetes mellitus type 1 (HCC) (2014) Hyperlipidemia Daria's disease Hypothyroidism Asthma (2018) Past Surgical History: Procedure Laterality Date KNEE SURGERY Right 2016 per [facility] records KNEE SURGERY Left 2012 per [facility] records MAMMOPLASTY, REDUCTION 1999 Social History Socioeconomic History Marital status: Highest education level: Master's degree (e.g., MA, MS, Kar, MEd, [employer], [employer]) Tobacco Use Smoking status: Never Smokeless tobacco: Never Vaping Use Vaping Use: Never used Substance and Sexual Activity Sexual activity: Yes Partners: Male Social Determinants of Health Financial Resource Strain: Low Risk Difficulty of Paying Living Expenses: Not hard at all Food Insecurity: No Food Insecurity Worried About Running Out of Food in the Last Year: Never true Ran Out of Food in the Last Year: Never true Transportation Needs: No Transportation Needs Lack of Transportation (Medical): No Lack of Transportation (Non-Medical): No Physical Activity: Insufficiently Active Days of Exercise per Week: 3 days Minutes of Exercise per Session: 30 min Stress: No Stress Concern Present Feeling of Stress : Not at all Social Connections: Moderately Integrated Frequency of Communication with Friends and Family: More than three times a week Frequency of Social Gatherings with Friends and Family: Once a week Attends Taoist Services: More than 4 times per year Active Member of Clubs or Organizations: No Attends Club or Organization Meetings: Never Marital Status: Intimate Partner Violence: Not At Risk Fear of Current or Ex-Partner: No Emotionally Abused: No Physically Abused: No Sexually Abused: No Review Of Systems: The following systems: Skin, Eyes, Ears/Nose/Throat, Respiratory, Cardiovascular, Gastrointestinal,Genitourinary, Neurologic, Endocrine, & MS reviewed and are negative; except for symptoms listed in HPI OBJECTIVE: Vital signs Blood pressure 111/69, pulse 78, temperature 97.2 F (36.2 C), temperature source Temporal, resp. rate 18, weight 141 lb (64 kg), SpO2 100 %. General appearance: alert, no distress, cooperative, oriented to time, place and person. Ears: R TM - normal, L TM - air/fluid interface. Nose: mucosal erythema and mucosal edema. Maxillary sinus tenderness noted. Oropharynx: normal. No lateral shift of uvula or airway; no stridor. Neck: normal, supple, and no adenopathy. No masses or fluctuance. Lungs: normal and clear to auscultation. Heart: regular rate and rhythm and no murmurs, clicks, or gallops. Skin: Normal turgor; no rash or other lesions, no peripheral edema. Eyes: no conjunctival injection MS: normal ROM Neuro: normal gait ASSESSMENT / PLAN: (J01.90, B96.89) Acute bacterial rhinosinusitis (primary encounter diagnosis) Comment: Decision to treat based on duration and severity of symptoms and physical exam findings. Received instructions regarding home care and indications to seek medical attention. Plan: amoxicillin-clavulanate (Augmentin) 875-125 MG per tablet Orders & Meds Signed During This Encounter amoxicillin-clavulanate (Augmentin) 875-125 MG per tablet 1. See visit diagnoses, disposition, and orders. 2. Reviewed and updated medication list; Discussed probable diagnosis, test results if available inoffice today and management options with patient/guardian: agreed to the medical plan above 3. Education provided regarding visit today, see after visit summary. Instruction provided in the use of fluids, vaporizer, acetaminophen, and/or other OTC medication for symptom control. Explained use of antibiotics only for proven or strongly suspected bacterial infections. 4. Prevention and health maintenance with primary care provider. 5. Patient/guardian educated to return to office or proceed to ED with worsening of condition, changes, or failure to improve. documented in this [id number] Telephone encounter Note* Telephone Encounter - Janel Miller RN - 03/16/2022 1:49 PM EDT What is the need: Situation: +Covid week ago Prescribed antiviral-completed today Background: see above Assessment: see triage-feels having brain fog-Unsure if SE of medication Recommendation: Virtual appt scheduled today with COVID provider Reason for Disposition [1] Caller has NON-URGENT medicine question about med that PCP prescribed AND [2] triager unable toanswer question Answer Assessment - Initial Assessment Questions 1. NAME of MEDICATION: What medicine are you calling about? molnupiravir (LAGEVRIO) 200 MG CAPS capsule 2. QUESTION: What is your question? (e.g., medication refill, side effect) SE? 3. PRESCRIBING HCP: Who prescribed it? Reason: if prescribed by specialist, call should be referred to that group. Covid provider-Dx with Covid week ago 4. SYMPTOMS: Do you have any symptoms? Confusion? ( A & O X 3) feel have to really focus on tasks 5. SEVERITY: If symptoms are present, ask Are they mild, moderate or severe? mild 6. : Is there any chance that you are ? When was your last menstrual period? Na-2 weeks ago Protocols used: MEDICATION QUESTION CALL-A- [id number] Miscellaneous Notes* Telephone Encounter - Janel Miller RN - 03/16/2022 1:49 PM EDT What is the need: Situation: +Covid week ago Prescribed antiviral-completed today Background: see above Assessment: see triage-feels having brain fog-Unsure if SE of medication Recommendation: Virtual appt scheduled today with COVID provider Reason for Disposition [1] Caller has NON-URGENT medicine question about med that PCP prescribed AND [2] triager unable toanswer question Answer Assessment - Initial Assessment Questions 1. NAME of MEDICATION: What medicine are you calling about? molnupiravir (LAGEVRIO) 200 MG CAPS capsule 2. QUESTION: What is your question? (e.g., medication refill, side effect) SE? 3. PRESCRIBING HCP: Who prescribed it? Reason: if prescribed by specialist, call should be referred to that group. Covid provider-Dx with Covid week ago 4. SYMPTOMS: Do you have any symptoms? Confusion? ( A & O X 3) feel have to really focus on tasks 5. SEVERITY: If symptoms are present, ask Are they mild, moderate or severe? mild 6. : Is there any chance that you are ? When was your last menstrual period? Na-2 weeks ago Protocols used: MEDICATION QUESTION CALL-A-AH documented in this [id number] Note* Addendum Note - Jammie Gann APRN-CNP - 03/11/2022 3:56 PM EDTAddended by: JAMMIE GANN on: 03/11/2022 03:56 PM Modules accepted: SmartSet [id number] Note* Addendum Note - Jammie Gann APRN-CNP - 03/11/2022 3:56 PM EDTAddended by: JAMMIE GANN on: 03/11/2022 03:56 PM Modules accepted: SmartSet [id number] Miscellaneous Notes* Addendum Note - Jammie Gann APRN-CNP - 03/11/2022 3:56 PM EDTAddended by: JAMMIE GANN on: 03/11/2022 03:56 PM Modules accepted: SmartSet documented in this [id number] Note* Addendum Note - Cornel Vazquez MD - 03/11/2022 9:02 AM EDTAddended by: CORNEL VAZQUEZ on: 03/11/2022 09:02 AM Modules accepted: Orders, SmartSet [id number] Miscellaneous Notes* Addendum Note - Cornel Vazquez MD - 03/11/2022 9:02 AM EDTAddended by: CORNEL VAZQUEZ on: 03/11/2022 09:02 AM Modules accepted: Orders, SmartSet documented in this [id number] History of Present illness Narrative* Cornel Vazquez MD - 03/11/2022 8:38 AM EDT Telephone Visit for COVID-19 Symptoms Reyes Galarzas 41 year old female Phone numbers PCP: PAPITO Cunningham No diagnosis found. HPI: Identification verified by Cornel Vazquez MD, Reyes Braga has chosen a telephone appointment today to address COVID +, dry cough, sinus congestion, rhinorrhea, sore throat, x 2 days and tested positive for covid .pt has DM Assessment/Plan: Mild COVID This patient, after initial screening, has acute respiratory symptoms which we evaluated by telephone for the safety of the community. Patient was assessed for recent confirmed COVID19 contacts and high-risk co-morbid conditions. This is a critical situation, and medical decision making is high acuity. Given limited resources to test for COVID19, per CDC recommendations we have recommended to the patient: Stay at home and self-isolate until cough and other new respiratory symptoms have improved, it's been 24 hours since the last fever, and 10 days since the symptoms began. A test was ordered and I will follow-up with the result. Other: [facility] in [facility] Documentation: Mode: Telephone Patient Patient Patient Cell Preferred phone: [phone] Consent: I confirmed patient understanding of the risks and benefits of telehealth visits and obtained consent to proceed with the telehealth visit. Location of Patient: Home of patient Cornel Vazquez MD documented in this [id number] Telephone encounter Note* Telephone Encounter - Ame Araujo RN - 03/11/2022 8:27 AM EDT What is the need: Situation: Pt calling in wanting antiviral medication . Background: Had + COVID home test 03-10-22. Onset of symptoms 03-08-22 ( cough, SOB with exertion, sinus pressure/congestion). Pt has h/o Asthma and Type 1 DM. Assessment: See electoral officer below Recommendation: Home care advice for symptoms provided to pt. Pt scheduled virtual phone appt with COVID provider to discuss antiviral medication use. Reason for Disposition Cough with cold symptoms (e.g., runny nose, postnasal drip, throat clearing) Answer Assessment - Initial Assessment Questions 1. ONSET: When did the cough begin? Increasing in amount of coughing . 2. SEVERITY: How bad is the cough today? Moderate 3. SPUTUM: Describe the color of your sputum (none, dry cough; clear, white, yellow, green) Dry cough ( has a runny nose but it is clear) 4. HEMOPTYSIS: Are you coughing up any blood? If so ask: How much? (flecks, streaks, tablespoons, etc.) Denies 5. DIFFICULTY BREATHING: Are you having difficulty breathing? If Yes, ask: How bad is it? (e.g., mild, moderate, severe) - MILD: No SOB at rest, mild SOB with walking, speaks normally in sentences, can lay down, no retractions, pulse < 100. - MODERATE: SOB at rest, SOB with minimal exertion and prefers to sit, cannot lie down flat, speaksin phrases, mild retractions, audible wheezing, pulse 100-120. - SEVERE: Very SOB at rest, speaks in single words, struggling to breathe, sitting hunched forward,retractions, pulse > 120 Mild SOB, more so with walking 6. FEVER: Do you have a fever? If Yes, ask: What is your temperature, how was it measured, and when did it start? 99.9 on 03-08-22 7. CARDIAC HISTORY: Do you have any history of heart disease? (e.g., heart attack, congestive heart failure) Denies 8. LUNG HISTORY: Do you have any history of lung disease? (e.g., pulmonary embolus, asthma, emphysema) Asthma 9. PE RISK FACTORS: Do you have a history of blood clots? (or: recent major surgery, recent prolonged travel, bedridden) Denies 10. OTHER SYMPTOMS: Do you have any other symptoms? (e.g., runny nose, wheezing, chest pain) Runny nose, sore throat, chills, sinus pressure/head ache 11. : Is there any chance you are ? When was your last menstrual period? Denies 12. TRAVEL: Have you traveled out of the country in the last month? (e.g., travel history, exposures) Denies Pt had + covid home test 03-10-22 Onset of symptoms 03-08-22 Protocols used: COUGH - ACUTE [id number] Miscellaneous Notes* Telephone Encounter - Ame Araujo RN - 03/11/2022 8:27 AM EDT What is the need: Situation: Pt calling in wanting antiviral medication . Background: Had + COVID home test 03-10-22. Onset of symptoms 03-08-22 ( cough, SOB with exertion, sinus pressure/congestion). Pt has h/o Asthma and Type 1 DM. Assessment: See electoral officer below Recommendation: Home care advice for symptoms provided to pt. Pt scheduled virtual phone appt with COVID provider to discuss antiviral medication use. Reason for Disposition Cough with cold symptoms (e.g., runny nose, postnasal drip, throat clearing) Answer Assessment - Initial Assessment Questions 1. ONSET: When did the cough begin? Increasing in amount of coughing . 2. SEVERITY: How bad is the cough today? Moderate 3. SPUTUM: Describe the color of your sputum (none, dry cough; clear, white, yellow, green) Dry cough ( has a runny nose but it is clear) 4. HEMOPTYSIS: Are you coughing up any blood? If so ask: How much? (flecks, streaks, tablespoons, etc.) Denies 5. DIFFICULTY BREATHING: Are you having difficulty breathing? If Yes, ask: How bad is it? (e.g., mild, moderate, severe) - MILD: No SOB at rest, mild SOB with walking, speaks normally in sentences, can lay down, no retractions, pulse < 100. - MODERATE: SOB at rest, SOB with minimal exertion and prefers to sit, cannot lie down flat, speaksin phrases, mild retractions, audible wheezing, pulse 100-120. - SEVERE: Very SOB at rest, speaks in single words, struggling to breathe, sitting hunched forward,retractions, pulse > 120 Mild SOB, more so with walking 6. FEVER: Do you have a fever? If Yes, ask: What is your temperature, how was it measured, and when did it start? 99.9 on 03-08-22 7. CARDIAC HISTORY: Do you have any history of heart disease? (e.g., heart attack, congestive heart failure) Denies 8. LUNG HISTORY: Do you have any history of lung disease? (e.g., pulmonary embolus, asthma, emphysema) Asthma 9. PE RISK FACTORS: Do you have a history of blood clots? (or: recent major surgery, recent prolonged travel, bedridden) Denies 10. OTHER SYMPTOMS: Do you have any other symptoms? (e.g., runny nose, wheezing, chest pain) Runny nose, sore throat, chills, sinus pressure/head ache 11. : Is there any chance you are ? When was your last menstrual period? Denies 12. TRAVEL: Have you traveled out of the country in the last month? (e.g., travel history, exposures) Denies Pt had + covid home test 03-10-22 Onset of symptoms 03-08-22 Protocols used: COUGH - ACUTE [id number] documented in this [id number] Instructions* Patient Instructions* Eris Valdez MD - 02/21/2022 9:30 AM EDT Insulin pump settings Time Basal (units/hr) Sensitivity (1u:mg/dl glu) Carb ratio (1u:g CHO) Glucose Target (mg/dl) 0000 0.55 1:50 1:10 110 documented in this [id number] History of Present illness Narrative* Eris Valdez MD - 02/21/2022 8:33 AM EDT Images from the original note were not included. ENDOCRINOLOGY CLINIC FOLLOW UP VISIT Reyes Braga 41 year old female The following information from the last visit was reviewed and updated as needed at this visit BRIEF HISTORY: Patient is a 41 year old White female with PMH asthma, Daria's thyroiditis, HLD, DM1 presentingfor f/u of Type 1 diabetes on insulin pump. Dx as DM2 in 12/2014, started on metformin but found to have very low C-peptide. SUBJECTIVE: Patient is here to establish care for diabetes with insulin pump. Has supplies from [employer], awaiting more Dexcom Uses [employer] ar[employer], eats consistently. CGM/Insulin Pump settings: -Device: Tandem with Dexcom -Please see upload if available -Average blood glucose: 281. -Checking blood glucose 2.92 times daily. -Average sensor B -Above range: 51>44% -Target range: 49>55% -Below range: <1 > 0% -Recent Hypoglycemia: Yes, <1% in the last 14 days -Total daily dose insulin: 33.41 Units -Bolus: 62% and Basal: 39% -Sensor wear: 57% Time Basal (units/hr) Sensitivity (1u:mg/dl glu) Carb ratio (1u:g CHO) Glucose Target (mg/dl) 0000 0.475 1:50 1:15>1:13 110 0300 0.3 0830 0.55 1200 0.65>0.75 1500 0.3>0.2 Insulin activity time = 5 hr Interval Hx: Recent hypoglycemia: Yes Blurry Vision: No Polyuria/Polydypsia: No Nausea/early fulness: No Chest pain or shortness of breath? No Lower extremity edema: No Thyroid Currently on LT4 100mcg PO every day Doing well, asymptomatic. Review of 14 systems are negative except the above. Tobacco smoking: Tobacco: Never If active, counseling provided to patient on smoking cessation. Previous medical records were reviewed. Current Outpatient Medications Medication Sig Dispense Refill insulin lispro (HumaLOG) 100 UNIT/ML injection use as directed in insulin pump up to 100 units per day 90 mL 0 Continuous Blood Gluc Sensor (Dexcom G6 Sensor) MISC 1 Units every 10 days. 3 Each 2 Glucagon (Baqsimi Two Pack) 3 MG/DOSE POWD Use 3 mg in each nostril as needed. For hypoglycemia 1 Each 3 albuterol (PROVENTIL HFA) INHALATION HFA inhaler (VENTOLIN,PROAIR,PROVENTIL) 90mcg Inhale 2 Puffs by mouth every 4 hours as needed for Wheezing or Shortness of Breath. 8.5 g 5 montelukast (SINGULAIR) 10 MG tablet Take 1 Tablet by mouth daily. 90 Tablet 3 levothyroxine (SYNTHROID) 100 MCG tablet Take 1 Tablet by mouth daily. 90 Tablet 3 atorvastatin (LIPITOR) 40 mg tablet Take 1 Tablet by mouth daily. 90 Tablet 3 Multiple Vitamin (Multivitamin Adult) TABS as directed No current facility-administered medications for this visit. Past Medical History: Diagnosis Date Asthma 2018 Diabetes mellitus type 1 (HCC) 2014 Daria's disease Hyperlipidemia Hypothyroidism Past Surgical History: Procedure Laterality Date KNEE SURGERY Right 2016 per [facility] records KNEE SURGERY Left 2013 per [facility] records MAMMOPLASTY, REDUCTION 2000 Family History Problem Relation Age of Onset Fibroids Mother Hypertension Mother Lipid Disorder Mother Hypertension Father Lipid Disorder Father Rheumatologic Disease Father Cancer Maternal Grandmother Diabetes Mellitus (Type 2) Paternal Grandmother Social History Tobacco Use Smoking status: Never Smoker Smokeless tobacco: Never Used Vaping Use Vaping Use: Never used Allergies Allergen Reactions Sulfamethoxazole W-Trimethoprim Other reaction(s): Unknown PHYSICAL EXAMINATION: There were no vitals filed for this visit. BMI was 26.40 kg/sq m on 10/16/2021 (weight 63.4 kg, height 5' 1) Vital signs reviewed General appearance: No distress. Cooperative. Skin: No striae or rashes Eyes: Pupils equal and reactive to light. Extraocular movements grossly intact. Anicteric sclera. Neck: Thyroid gland palpable, no nodules were palpable. No cervical LAD. Lungs: Clear to auscultation. Good breath sounds; no wheezes, rales or rhonchi. Heart: Regular rate and rhythm. No murmurs, rubs or gallops. Abdomen: Soft, non-tender. No apparent masses. No visceromegaly. Extremities: No edema. Neuro: No tremor. Labs Hemoglobin A1c Date Value Ref Range Status 10/16/2021 8.0 (H) 4.0 - 5.6 % Final 03/25/2019 7.2 (H) 4.3 - 5.6 % Final Comment: [place] [employer] guidelines indicate that patients with HgbA1c in the range 5.7-6.4% are at increased risk for development of diabetes, and intervention by lifestyle modification may be beneficial. HgbA1c greater or equal to 6.5% is considered diagnostic of diabetes. Basic Metabolic Panel None No results found for: JENNIFER No results found for: CPEPTIDE ASSESSMENT AND PLAN: In conclusion, Ms. Braga is a 41 year old female with PMH asthma, Daria's thyroiditis, HLD, DM1 presenting for f/u of Type 1 diabetes on insulin pump. #Diabetes Type 1 A: Dx 2014 with low Cpeptide. Uncertain antibody status - HbA1c 8% on 10/16/21. - Control: Moderately poor -Pt motivated to control glycemia. Somewhat reticent. Supported by . -Had self-titrated basal resulting in more erratic basal settings. -Re-emphasized prior discussions about: pump, bolus guidance. Pt had been eager for guidance but insistent on independent changes such as AM basal increases (continues to self-titrate her settings without guidance). Stressed the importance of doing so under supervision of Endocrinologists. -Continuing to reassure patient to foster a cooperative environment where we may support patient incontrol of her diabetes. PLAN: - Plan for the dosage adjustment in the insulin pump. Time Basal (units/hr) Sensitivity (1u:mg/dl glu) Carb ratio (1u:g CHO) Glucose Target (mg/dl) 0000 0.475>0.55 1:50 1:13>1:10 110 0300 0.3>0.55 0830 0.55 1200 0.75>0.55 1500 0.2>0.55 -Recommended at least 150 minutes per week of moderate physical activity. -Counseled in detail about dietary precautions for diabetes. Educated on moderate carb diet, avoidance of beverages with added sugars. Educated about carbohydrate counting. -Podiatry referral deferred -Ophthalmology referral placed previously -Check c-peptide, JENNIFER, islet cell antibody, adrenal antibody -Monitor A1c -Provided pt with Dexcom CGM since her supply will run out Friday. #Daria's A: Longstanding history. Clinically and biochemically euthyroid, last check 10/16/21 with TSH 2.6 P: -Continue LT4 100mcg PO every day -Check TSH q6 months (next 04/15/22) - Vaccinations: Pneumonia vaccine(s): Pneumococcal polysaccharide 23 Valent (PPSV23) (CVX=33) was administered on 06/02/2019 Influenza vaccine(s): No records found for Influenza, unspecified formulation (CVX=88) COVID-19 vaccine status: Dose #3 of Booster for Moderna series is due on 03/31/2021. No orders or meds were signed during this encounter Return to clinic in 3 month(s) Discussed with Dr. Jaclyn Valdez D.O. Fellow Division of Endocrinology Associated attestation - Evan Preciado MD - 02/24/2022 4:52 PM EDT Teaching Physician Note: I saw and evaluated the patient. I personally obtained the lucia and critical portions of the historyand physical exam. I reviewed Dr. Dr. Valdez's documentation and discussed the patient with . I agree with Dr. Dr. Valdez's medical decision making as documented in Dr. Valdez's note. Evan Preciado MD Endocrinology Section * Caitlyn Crow - 02/21/2022 8:31 AM EDT Patient was identified by name and date of . Caitlyn Crow Patient at risk for falls:No Falls Risk protocol implemented: No documented in this [id number] Telephone encounter Note* Telephone Encounter - Gracie Sanchez RN - 02/20/2022 5:02 PM EDT Left message to confirm insulin pump clinic on 02/21/22, and to please upload pump. Requesting call back to confirm Arrange 4 month f/u appt A1c record Lab Results Component Value Date HBA1C 8.0 (H) 10/16/2021 HBA1C 7.2 (H) 03/25/2019 Chart review done;: Health Maintenance Needs: Has labs place in 09/2021 that needs to be done. Mary Kay Sanhcez RN.,BSN., [facility] Certified Care and Director Construction Services Endocrinology Dyehouse Worker [phone] [id number] Miscellaneous Notes* Telephone Encounter - Gracie Concepcion RN - 02/20/2022 5:02 PM EDT Left message to confirm insulin pump clinic on 02/21/22, and to please upload pump. Requesting call back to confirm Arrange 4 month f/u appt A1c record Lab Results Component Value Date HBA1C 8.0 (H) 10/16/2021 HBA1C 7.2 (H) 03/25/2019 Chart review done;: Health Maintenance Needs: Has labs place in 09/2021 that needs to be done. Mary Kay Sanchez RN.,BSN., [facility] Certified Care and Director Construction Services Endocrinology Dyehouse Worker [phone] documented in this [id number] Miscellaneous Notes* Telephone Encounter - Neena Lezama - 11/27/2021 11:05 AM EDT [facility] is calling back to check on status of OV notes to be sent to them. Please fax notes to [phone]. They state they have received BG logs from patient Thank you * Telephone Encounter - Gracie Sanchez RN - 11/09/2021 9:14 AM EDT Spoke with [facility]. They needs patient BG log. No requested has been received for BG log. They will be sending over request. Patient will also work on sending over her BG log. Mary Kay Sanchez RN.,BSN., [facility] Certified Care and Director Construction Services Endocrinology Dyehouse Worker [phone] * Telephone Encounter - Cherelle López RN - 11/08/2021 5:16 PM EDT Chart reviewed. * Telephone Encounter - Hailey Ngo - 11/08/2021 10:59 AM EDT [facility] is calling to see if the doctors office received their fax for the request of clinical notes. They can be called back at [phone] Thank you! Last visit with Michelle (Eris Valdez) 10/18/21. Next visit with Eris Perrin) 02/21/22 documented in this [id number] NotePatient Outreach (INTMMN) REYES BRAGA ([id number]) 1980 F Date Time Provider Department 03/16/21 SHARAD JUNG INTMMN During your visit today, we recorded the following information about you: Allergies As of Date: 03/16/2021 Noted Allergy Reaction BACTRIM (SULFAMETHOXAZOLE-TRIMETH*03/26/2019 16 - Unknown Date Reviewed: 03/26/2019 Reviewed by: Oralia Mo Ma - Fully Assessed Visit Diagnosis:Encounter for screening mammogram for breast cancer [Z12.31] Order(s):[facility] SCREENING [[id number]] Order #: [id number] FUTURE Prescriptions as of 03/19/2021 - insulin lispro (HUMALOG U-100 INSULIN) 100 unit/mL injection inject UP TO 40 units VIA PUMP PER DAY - SPIRIVA RESPIMAT 1.25 mcg/actuation mist inhale 2 puffs by mouth and INTO THE LUNGS once daily - atorvastatin (LIPITOR) 80 mg tablet Take 1 tablet by mouth once daily. - levothyroxine (SYNTHROID) 88 mcg tablet Take 1 tablet by mouth once daily. - blood sugar diagnostic (MobileIgniterTOUCH VERIO) test strip Use as instructed 10x/d - lancets (ONE TOUCH DELICA) 33 gauge misc 10//d - montelukast (SINGULAIR) 10 mg tablet Take 1 tablet by mouth daily at bedtime. - insulin zinc human recombinant (NOVOLIN L SUBCUTANE.) Inject subcutaneously. - COMPOUNDED PRESCRIPTION control alese one per day Problem List As Of Date 03/16/2021 Noted Resolved Type 1 diabetes (HCC) [E10.9] Hypothyroid [E03.9] Hyperlipidemia [E78.5] 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] Asthma [J45.909] Well adult exam [Z00.00] 03/25/2019 Encounter Status:Closed by SHARON AGUSTIN on 03/19/21[facility] 11-30-2020 NoteHNO ID: [id number] Author: Rocío Waters MA Service: ? Author Type: Solar Installation Helper Type: Progress Notes Filed: 11/30/2020 2:55 PM Note Text: Care Gap Reviewed: HBA1C Phone call placed to patient. Pt identified by name and : YES Outreach Outcome/Action: Spoke to patient or caregiver: Patient declined navigation services If patient deferred or declined to schedule appointment, please indicate the reason(s): Received care somewhere else [facility] NotePatient Outreach (FAMPWS) REYES BRAGA ([id number]) 1980 F Date Time Provider Department 11/30/20 ROCÍO WATERS During your visit today, we recorded the following information about you: Rocío Waters MA 11/30/2020 2:55 PM Signed Care Gap Reviewed: HBA1C Phone call placed to patient. Pt identified by name and : YES Outreach Outcome/Action: Spoke to patient or caregiver: Patient declined navigation services If patient deferred or declined to schedule appointment, please indicate the reason(s): Received care somewhere else Rocío Waters Allergies As of Date: 11/30/2020 Noted Allergy Reaction BACTRIM (SULFAMETHOXAZOLE-TRIMETH*03/26/2019 16 - Unknown Date Reviewed: 03/26/2019 Reviewed by: Oralia Mo Ma - Fully Assessed Reason for Visit: Appointment [186] Cmt: A1C Prescriptions as of 11/30/2020 Sig: INSULIN LISPRO (U-100) 100 UN* inject UP TO 40 units VIA PUM* SPIRIVA RESPIMAT 1.25 MCG/ACT* inhale 2 puffs by mouth and I* ATORVASTATIN 80 MG TABLET Take 1 tablet by mouth once d* LEVOTHYROXINE 88 MCG TABLET Take 1 tablet by mouth once d* BLOOD SUGAR DIAGNOSTIC STRIPS Use as instructed 10x/d LANCETS 33 GAUGE 10//d MONTELUKAST 10 MG TABLET Take 1 tablet by mouth daily * NOVOLIN L SUBCUTANE. Inject subcutaneously. * COMPOUNDED PRESCRIPTION control alese one per d* Problem List As Of Date 11/30/2020 Noted Resolved Type 1 diabetes (HCC) [E10.9] Hypothyroid [E03.9] Hyperlipidemia [E78.5] 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] Asthma [J45.909] Well adult exam [Z00.00] 03/25/2019 Encounter Status:Closed by ROCÍO WATERS MA on 11/30/20[facility]03-05-2021 NotePatient Outreach (COVAMN) REYES BRAGA ([id number]) 1980 F Date Time Provider Department 10/27/20 JULISSA PARISI During your visit today, we recorded the following information about you: Allergies As of Date: 10/27/2020 Noted Allergy Reaction BACTRIM (SULFAMETHOXAZOLE-TRIMETH*03/26/2019 16 - Unknown Date Reviewed: 03/26/2019 Reviewed by: Oraila Mo Ma - Fully Assessed Order(s):SARS-COVID VACCINE 1ST DOSE APPT [[id number]] Order #: [id number] FUTURE Prescriptions as of 10/27/2020 Sig: INSULIN LISPRO (U-100) 100 UN* inject UP TO 40 units VIA PUM* SPIRIVA RESPIMAT 1.25 MCG/ACT* inhale 2 puffs by mouth and I* ATORVASTATIN 80 MG TABLET Take 1 tablet by mouth once d* LEVOTHYROXINE 88 MCG TABLET Take 1 tablet by mouth once d* BLOOD SUGAR DIAGNOSTIC STRIPS Use as instructed 10x/d LANCETS 33 GAUGE 10//d MONTELUKAST 10 MG TABLET Take 1 tablet by mouth daily * NOVOLIN L SUBCUTANE. Inject subcutaneously. * COMPOUNDED PRESCRIPTION control alese one per d* Problem List As Of Date 10/27/2020 Noted Resolved Type 1 diabetes (HCC) [E10.9] More... Hypothyroid [E03.9] Hyperlipidemia [E78.5] 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] Asthma [J45.909] Well adult exam [Z00.00] 03/25/2019 More... Encounter Status:Closed by SHARON AGUSTIN on 10/30/20[facility] Evaluation + Plan note Future Appointments Appointment Date:01/25/2025 09:00:00 AM Scheduled Provider: Location:[facility] Appointment Type:MA Mammogram Diagnostic Bilateral w/ Antwon Appointment Date:01/25/2025 09:30:00 AM Scheduled Provider: Location:[facility] Appointment Type:US Breast Bilateral Limited Appointment Date:01/26/2025 10:30:00 AM Scheduled Provider:ADRIAN HANCOCK MD Location: [facility] Appointment Type:WH OV Appointment Date:02/03/2025 02:15:00 PM Scheduled Provider:IFEOMA HARRIS MD Location:[facility] [place] Appointment Type:ENDO OV Future Scheduled Tests Laboratory* NMR LipoProfile+Lipids 01/28/25 * NMR LipoProfile+Lipids 05/27/24 * NMR LipoProfile+Lipids 10/22/24 * JENNIFER-65 Autoantibody 05/27/24 * Calcium Level Ionized 10/22/24 * Ferritin 01/28/25 * Iron Level 01/28/25 * Thyroid Stimulating Hormone 01/28/25 * Thyroid Stimulating Hormone 10/22/24 * Free T4 01/28/25 * Free T4 10/22/24 * A1C Hemoglobin 01/28/25 * A1C Hemoglobin 10/22/24 * Free T3 01/28/25 * Free T3 10/22/24 * Albumin/Creatinine Ratio, Random Urine 01/28/25 * PTH, Intact 10/22/24 * Vitamin D Level 10/22/24 * Complete Metabolic Panel 01/28/25 * Complete Metabolic Panel 10/22/24 * TIBC 01/28/25 * anti-Thyroid Peroxidase 05/27/24 Radiology* MA Mammo Diagnostic Bilateral w/Tom 01/25/25 * US Breast Bilateral Limited 01/25/25 [facility] Evaluation + Plan note Future Appointments Appointment Date:02/03/2025 02:15:00 PM Scheduled Provider:IFEOMA HARRIS MD Location[facility] Appointment Type:ENDO OV Future Scheduled Tests Laboratory* NMR LipoProfile+Lipids 01/28/25 * NMR LipoProfile+Lipids 05/27/24 * NMR LipoProfile+Lipids 10/22/24 * JENNIFER-65 Autoantibody 05/27/24 * Calcium Level Ionized 10/22/24 * Ferritin 01/28/25 * Iron Level 01/28/25 * Thyroid Stimulating Hormone 01/28/25 * Thyroid Stimulating Hormone 10/22/24 * Free T4 01/28/25 * Free T4 10/22/24 * A1C Hemoglobin 01/28/25 * A1C Hemoglobin 10/22/24 * Free T3 01/28/25 * Free T3 10/22/24 * Albumin/Creatinine Ratio, Random Urine 01/28/25 * PTH, Intact 10/22/24 * Vitamin D Level 10/22/24 * Complete Metabolic Panel 01/28/25 * Complete Metabolic Panel 10/22/24 * TIBC 01/28/25 * anti-Thyroid Peroxidase 05/27/24 [facility] Evaluation + Plan note Future Appointments Appointment Date:01/26/2025 10:30:00 AM Scheduled Provider:ADRIAN HANCOCK MD Location: [facility] Appointment Type: OV Appointment Date:02/03/2025 02:15:00 PM Scheduled Provider:IFEOMA HARRIS MD Location:[facility] Appointment Type:ENDO OV Future Scheduled Tests Laboratory* NMR LipoProfile+Lipids 01/28/25 * NMR LipoProfile+Lipids 05/27/24 * NMR LipoProfile+Lipids 10/22/24 * JENNIFER-65 Autoantibody 05/27/24 * Calcium Level Ionized 10/22/24 * Ferritin 01/28/25 * Iron Level 01/28/25 * Thyroid Stimulating Hormone 01/28/25 * Thyroid Stimulating Hormone 10/22/24 * Free T4 01/28/25 * Free T4 10/22/24 * A1C Hemoglobin 01/28/25 * A1C Hemoglobin 10/22/24 * Free T3 01/28/25 * Free T3 10/22/24 * Albumin/Creatinine Ratio, Random Urine 01/28/25 * PTH, Intact 10/22/24 * Vitamin D Level 10/22/24 * Complete Metabolic Panel 01/28/25 * Complete Metabolic Panel 10/22/24 * TIBC 01/28/25 * anti-Thyroid Peroxidase 05/27/24 [facility] Evaluation + Plan note Future Appointments Appointment Date:06/09/2025 02:15:00 PM Scheduled Provider:IFEOMA HARRIS MD Location[facility] Appointment Type:ENDO OV Future Scheduled Tests Laboratory* NMR LipoProfile+Lipids 05/27/24 * NMR LipoProfile+Lipids 10/22/24 * JENNIFER-65 Autoantibody 05/27/24 * Calcium Level Ionized 10/22/24 * Thyroid Stimulating Hormone 06/05/25 * Thyroid Stimulating Hormone 10/22/24 * Free T4 06/05/25 * Free T4 10/22/24 * A1C Hemoglobin 06/05/25 * A1C Hemoglobin 10/22/24 * Free T3 06/05/25 * Free T3 10/22/24 * Lipid Profile 06/05/25 * Albumin/Creatinine Ratio, Random Urine 06/05/25 * PTH, Intact 10/22/24 * Vitamin D Level 06/05/25 * Vitamin D Level 06/05/25 * Vitamin D Level 10/22/24 * Complete Metabolic Panel 06/05/25 * Complete Metabolic Panel 10/22/24 * anti-Thyroid Peroxidase 05/27/24 [facility] Evaluation note* Diagnosis Type 1 diabetes mellitus with hyperglycemia (HCC)- Primary Type I (juvenile type) diabetes mellitus without mention of complication, not stated as uncontrolled [facility] Diagnosis COVID-19 virus infection- Primary [facility]* Diagnosis OUTSIDE CORRESPONDENCE for use in designating purpose of abstract encounters [facility]* Diagnosis Acute bacterial rhinosinusitis- Primary Body mass index (BMI) 26.0-26.9, adult [facility]* Diagnosis Acute recurrent sinusitis, unspecified location- Primary Type 1 diabetes mellitus without complication (HCC) Type I (juvenile type) diabetes mellitus without mention of complication, not stated as uncontrolled Uterine leiomyoma, unspecified location Hypothyroidism, unspecified type Mild intermittent asthma without complication Unspecified asthma Body mass index (BMI) 27.0-27.9, adult [facility]* Diagnosis Type 1 diabetes mellitus without complication (HCC)- Primary Type I (juvenile type) diabetes mellitus without mention of complication, not stated as uncontrolled Chronic right shoulder pain Pain in joint, shoulder region Body mass index (BMI) 25.0-25.9, adult [facility]* Diagnosis Chronic right shoulder pain- Primary Pain in joint, shoulder region [facility]* Diagnosis Chronic right shoulder pain- Primary Pain in joint, shoulder region [facility]* Diagnosis Type 1 diabetes mellitus with hyperglycemia (HCC)- Primary Type I (juvenile type) diabetes mellitus without mention of complication, not stated as uncontrolled [facility]* Diagnosis Biceps tendinitis on right- Primary [facility]* Diagnosis Chronic right shoulder pain- Primary Pain in joint, shoulder region [facility]* Diagnosis Biceps tendinitis on right- Primary [facility]* Diagnosis Screening mammogram for breast cancer- Primary [facility]* Diagnosis Menorrhagia with regular cycle- Primary Excessive or frequent menstruation [facility]* Diagnosis Dysmenorrhea- Primary Menorrhagia with regular cycle Excessive or frequent menstruation Hyperthyroidism Thyrotoxicosis without mention of goiter or other cause, without mention of thyrotoxic crisis or storm Body mass index (BMI) 25.0-25.9, adult [facility]* Diagnosis Dysmenorrhea- Primary Menorrhagia with regular cycle Excessive or frequent menstruation Hyperthyroidism Thyrotoxicosis without mention of goiter or other cause, without mention of thyrotoxic crisis or storm Body mass index (BMI) 25.0-25.9, adult [facility]* Diagnosis Routine adult health maintenance- Primary Routine general medical examination at a health care facility Type 1 diabetes mellitus without complication (HCC) Type I (juvenile type) diabetes mellitus without mention of complication, not stated as uncontrolled Mild intermittent asthma without complication Unspecified asthma Hypothyroidism, unspecified type Body mass index (BMI) 26.0-26.9, adult Mild intermittent asthma without complication- Primary Unspecified asthma [facility]* Diagnosis Hypothyroidism, unspecified type Mild intermittent asthma without complication Unspecified asthma [facility]* Diagnosis Type 1 diabetes mellitus without complication (HCC)- Primary Type I (juvenile type) diabetes mellitus without mention of complication, not stated as uncontrolled [facility]* Diagnosis Type 1 diabetes mellitus without complication (HCC)- Primary Type I (juvenile type) diabetes mellitus without mention of complication, not stated as uncontrolled [facility]* Diagnosis Type 1 diabetes mellitus without complication (HCC)- Primary Type I (juvenile type) diabetes mellitus without mention of complication, not stated as uncontrolled [facility] noteNo assessment information availableWCenterville Work Phone: Evaluation note* Diagnosis Encounter for preventative adult health care examination- Primary Asthma, unspecified asthma severity, unspecified whether complicated, unspecified whether persistent (HCC) Hyperlipidemia, unspecified hyperlipidemia type Need for hepatitis C screening test Special screening examination for other specified viral diseases Hypothyroidism, unspecified type Type 1 diabetes mellitus without complication (HCC) Type I (juvenile type) diabetes mellitus without mention of complication, not stated as uncontrolled Metrorrhagia Body mass index (BMI) 26.0-26.9, adult Screening mammogram for breast cancer- Primary [facility] Narrative No data available for this section [facility] Hospital Discharge instructions No data available for this section [facility] Instructions* Attachments The following attachments cannot be sent through Care Everywhere. * Sinusitis in Adults ([place]) documented in [facility] encounter[facility]HealthInstructions* Attachments The following attachments cannot be sent through Care Everywhere. * Getting Started With Your Continuous Glucose Monitor documented in this encounterMetroHealthProgress note No data available for this section [facility] Reason for referral (narrative)* Tests/Procedures (Routine) - Authorized Specialty Diagnoses / Procedures Referred By Contac t Referred To Contact Physical Medicine & Rehab/PM&R Procedures US GUIDANCE NEEDLE PLACEMENT PMR Kailey Hall DO [address] [place] [address] Referral ID Status Reason Start Date Expiration Date V isits Requested Visits Authorized [id number] Authorized 12/30/2022 12/30/2023 1 1 [facility] for referral (narrative)No reason for referral information availableWCenterville Work Phone: Summary Purpose Family History No Family History Records FoundNo Family History Records FoundNo Family History Records Found No data available for this section No data available for this section No data available for this section No data available for this section No Family History Records FoundNo Family History Records Found No data available for this section No Family History Records Found Advance Directives No Advanced Directives Records FoundNo Advanced Directives Records FoundNo Advanced Directives Records FoundNo Advanced Directives Records FoundNo Advanced Directives Records FoundNo Advanced Directives Records Found Reason for Referral Specialty Diagnoses / Procedures Referred By Contac t Referred To Contact Radiology Diagnoses OUTSIDE CORRESPONDENCE Procedures MG IMPORTED IMAGES Radha Cole, [address] [place] [address] [facility] [place] [address] Referral ID Status Reason Start Date Expiration Date Visits Re quested Visits Authorized [id number] Closed 04/15/2022 04/15/2023 1 1 Specialty Diagnoses / Procedures Referred By Contac t Referred To Contact Gynecology Diagnoses Uterine leiomyoma, unspecified location Dejuan Boles MD [address] [place] [address] [facility] DIRECTOR OF MEDICAL SERVICES [address] [place] [address] Referral ID Status Reason Start Date Expiration Date V isits Requested Visits Authorized [id number] Authorized 07/22/2022 07/22/2023 3 3 Scheduling Instructions Please call the [facility] at [phone] to schedule an appointment if one was not made for you. Comments exam and pap smear Specialty Diagnoses / Procedures Referred By Contac t Referred To Contact Diagnoses Type 1 diabetes mellitus without complication (HCC) Dejuan Boles MD [address] [place] [address] Referral ID Status Reason Start Date Expiration Date V isits Requested Visits Authorized [id number] Pending Review 3 3 Specialty Diagnoses / Procedures Referred By Contac t Referred To Contact Dejuan Boles MD [address] [place] [address] Referral ID Status Reason Start Date Expiration Date V isits Requested Visits Authorized [id number] Pending Review 3 3 Specialty Diagnoses / Procedures Referred By Royalac t Referred To Contact Radiology Diagnoses Chronic right shoulder pain Procedures XR SHOULDER RIGHT MINIMUM 2 VIEWS Ortho Hand [address] [place] [address] [facility] DIAGNOSTIC RADIOLOGY [address] [place] [address] Referral ID Status Reason Start Date Expiration Date V isits Requested Visits Authorized [id number] Authorized 11/06/2022 11/06/2023 1 1 Specialty Diagnoses / Procedures Referred By Contac t Referred To Contact Physical Therapy Diagnoses Chronic right shoulder pain Deacon Paulino MD [address] [place] [address] [place] [address] Referral ID Status Reason Start Date Expiration Date Visits Requested Visits Authorized [id number] [facility]2022 11/07/2023 10 10 Scheduling Instructions SCHEDULING INSTRUCTIONS: Call [phone] to schedule your Physical Therapy appointment. We offer therapy services at many convenient locations. Please arrive 20 minutes prior to your appointment to register. It is important to bring your insurance cards and a personal identification card to your appointment. If you are unable to keep your appointment, cancel or reschedule by calling [phone] or via [employer]. Thank you! Question Answer Is this for a new patient or continuation of treatment? (New = hasn't been seen for referring dx/problem for outpatient therapy in the last 3 mo.) New Patient What is the main reason for visit? Non-Urgent/Chronic Is the reason for this visit Workers' Comp related? No What is the reason for visit? Musculoskeletal/Pain Reason for Ortho Visit Musculoskeletal-General Precautions? biceps/RC tendinitis Specialty Diagnoses / Procedures Referred By Contact Referred To Contact Physical Medicine & Rehab/PM&R Diagnoses Chronic right shoulder pain Deacon Paulino MD [address] [place] [address] [facility] [address] [place] [address] Referral ID Status Reason Start Date Expiration Date V isits Requested Visits Authorized [id number] Pending Review 11/06/2022 11/07/2023 3 3 Scheduling Instructions Please call [phone] to schedule an appointment for your procedure. Question Answer Is the patient taking anticoagulants, aspirin or Plavix (clopidogrel)? No Comments Type 1 diabetes mellitus without complication (HCC) (Primary Diagnosis) [093814] Chronic right shoulder pain [613609] Type of visit: Procedure Visit Only Specify area to be injected: right long head of biceps tendon Please have patient call [phone] to schedule procedure appointment. Patient may continue their asprin and other blood thinning medications. Specialty Diagnoses / Procedures Referred By Montrell saldaña Referred To Contact Radiology Diagnoses Chronic right shoulder pain Procedures MR SHOULDER RIGHT W/O Ortho Hand [address] [place] [address] [facility] MRI [address] [place] [address] Referral ID Status Reason Start Date Expiration Date V isits Requested Visits Authorized [id number] Pending Review 11/06/2022 11/06/2023 1 1 Specialty Diagnoses / Procedures Referred By Montrell saldaña Referred To Contact Radiology Diagnoses Screening mammogram for breast cancer Procedures MG MAMMO SCREEN BILCAPO HERNANDEZ W/Yesenia Briceno MD [address] [place] [address] [facility] [place] [address] Referral ID Status Reason Start Date Expiration Date V isits Requested Visits Authorized [id number] Authorized 03/06/2023 03/05/2024 1 1 Specialty Diagnoses / Procedures Referred By Contact Referred To Contact Maternal/ Medicine Diagnoses Dysmenorrhea Menorrhagia with regular cycle Procedures [facility] Anna Stewart MD [address] [place] [address] [facility] [address] [place] [address] Referral ID Status Reason Start Date Expiration Date Visits Requested Visits Authorized [id number] Authorized Continuity of Care 05/26/2023 05/26/2024 3 3 Specialty Diagnoses / Procedures Referred By Montrell t Referred To Contact Podiatry Diagnoses Type 1 diabetes mellitus without complication (HCC) Amelia Diaz APRN-CNP [address] [place] [address] [address] [place] [address] Referral ID Status Reason Start Date Expiration Date Visits Requested Visits Authorized [id number] [facility] 06/18/2024 3 3 Scheduling Instructions Please call the Podiatry Clinic at to schedule an appointment if one was not made for you today. Comments diabetes Specialty Diagnoses / Procedures Referred By Montrell t Referred To Contact Ophthalmology Diagnoses Type 1 diabetes mellitus without complication (HCC) Amelia Diaz APRN-CNP [address] [place] [address] [facility] EYE FAC[facility]Y [address] [place] [address] Referral ID Status Reason Start Date Expiration Date V isits Requested Visits Authorized [id number] Authorized 06/18/2023 06/18/2024 3 3 Scheduling Instructions Please call the Eye Clinic at [phone] option 3, to schedule an appointment if one was not made for you today. Question Answer Patient to be evaluated for: Diabetic [12] Specialty Diagnoses / Procedures Referred By Montrell t Referred To Contact Amelia Diaz APRN-CNP [address] [place] [address] Referral ID Status Reason Start Date Expiration Date Visits Re quested Visits Authorized Question Answer Patient to be evaluated for: Diabetes [4] Chief Complaint and Reason for Visit Chief Complaint Admit Date CHronic neck pain December 20, 2024 9:4 3am FASTING January 28, 2025 8:04a m Chief Complaint Admit Date CHronic neck pain December 20, 2024 9:4 3am FASTING January 28, 2025 8:04a m RIGH HAND/ THUMB PAIN April 08, 2025 3:22pm Additional Source Comments INFORMATION SOURCE (unrecogn ized section and content) DATE CREATED AUTHOR 12/16/2020 [facility] em DATE CREATED AUTHOR AUTHOR'S ORGANIZ ATION 10/03/2021 [facility] DATE CREATED AUTHOR AUTHOR'S ORGANIZ ATION 07/18/2024 [facility] DATE CREATED AUTHOR AUTHOR'S ORGANIZ ATION 02/27/2025 [facility] DATE CREATED AUTHOR AUTHOR'S ORGANIZ ATION 04/16/2025 [facility] DATE CREATED AUTHOR AUTHOR'S ORGANIZ ATION 05/09/2025 [facility] Reason for Visit (unrecogniz ed section and content) Reason Comments PT Visit # 6 Specialty Diagnoses / Procedures Referred By Contac t Referred To Contact Physical Therapy Diagnoses Chronic right shoulder pain Procedures PT EVAL HIGH COMPLEX 45 MIN THERAPEUTIC EXERCISE NEUROMUSCULAR REEDUCATION THERAPEUTIC ACTIVITY EA 15MIN JOINT MOBILIZATION Deacon Paulino MD [address] [place] [address] [place] [address] Referral ID Status Reason Start Date Expiration Date Visits Requested Visits Authorized [id number] Authorized Consult[facility] 11/11/2022 05/14/2023 10 10 Reason Comments PT Visit # 3 Reason Comments PT Visit # 2 Reason Onset Date Comments Forms Completion 11/08/2021 Reason Comments Case Management Left Message To Call Back System Navigation Appointment Confirmation APPOINTMENT SCHEDULING Reason Comments Medicine Follow Up Reason Onset Date Comments Cough 03/11/2022 Reason Comments COVID-19 infection Reason Onset Date Comments Advice/health education 03/16/2022 Specialty Diagnoses / Procedures Referred By Contac t Referred To Contact Radiology Diagnoses OUTSIDE CORRESPONDENCE Procedures MG IMPORTED IMAGES Radha Cole DO [address] [place], [place] [id number] [facility] [place] [address] Referral ID Status Reason Start Date Expiration Date Visits Re quested Visits Authorized [id number] Closed 04/15/2022 04/15/2023 1 1 Reason Comments Cough Ear pain/earache Reason Comments New patient, to establish relationship Sick Visit Reason Onset Date Comments Requesting Medications 09/06/2022 Reason Comments New patient, to establish relationship Shoulder symptoms R shoulder pain Reason Comments PT Eval Right Shoulder Reason Onset Date Comments Forms Completion 11/20/2022 [facility] Reason Comments Local injection/infiltration Specialty Diagnoses / Procedures Referred By Contact Referred To Contact Physical Medicine & Rehab/PM&R Diagnoses Chronic right shoulder pain Procedures INJECTION(S); SINGLE TENDON SHEATH, LIGAMENT, APONEUROSIS U/S GUIDANCE FOR NEEDLE BIOPSY DRAIN/INJ LARGE JOINT/BURSA W/US right long head of biceps tendon Deacon Paulino MD [address] [place] [address] [facility] PMR [facility]INIC [address] [place] [address] Referral ID Status Reason Start Date Expiration Date V isits Requested Visits Authorized [id number] Closed [facility] Care[facility] 11/27/2022 02/26/2023 1 1 Reason Comments Local injection/infiltration Specialty Diagnoses / Procedures Referred By Contact Referred To Contact Physical Medicine & Rehab/PM&R Diagnoses Chronic right shoulder pain Procedures INJECTION(S); SINGLE TENDON SHEATH, LIGAMENT, APONEUROSIS U/S GUIDANCE FOR NEEDLE BIOPSY DRAIN/INJ LARGE JOINT/BURSA W/US right long head of biceps tendon Deacon Paulino MD [address] [place] [address] [facility] [address] [place] [address] Reason Onset Date Comments Forms Completion 01/23/2023 [facility] Reason Comments Labs Reason Comments having really bad periods wo rried about her fibroids Having short periods but heavy like the first 2 days Specialty Diagnoses / Procedures Referred By Montrell saldaña Referred To Contact Gynecology Diagnoses Uterine leiomyoma, unspecified location Dejuan Boles MD [address] [place] [address] [facility] DIRECTOR OF MEDICAL SERVICES [address] [place] [address] Referral ID Status Reason Start Date Expiration Date V isits Requested Visits Authorized [id number] Authorized 07/22/2022 07/22/2023 3 3 Reason Onset Date Comments Question about medication 06/03/2023 Reason Comments Complete exam Reason Comments Refill Care Teams (unrecognized sec tion and content) French Folder Relationship Specialty Start Date End Date Jammie Gann APRN-PHP MAGENTO DEVELOPER [address] [place] [address] [place] [address] PCP - General Internal Medicine 10/16/21 Gracie Sanchez, BECKIE [address] [place] [address] [place] [address] Maintenance Custodian Care Management 10/09/21 Jammie Gann APRN-CNP [address] [place] [address] [place] [address] AVIATION TECHNICIAN Pulmonary Medicine 10/27/21 Eris Valdez MD [address] [place] [address] Fellow Endocrinology/Medici ne 10/27/21 French Folder Relationship Specialty Start Date End Date Jammie Gann APRN-CNP [address] [place] [address] [place] [address] PCP - General Internal Medicine 10/16/21 Gracie Sanchez RN [address] [place] [address] [place] [address] Maintenance Custodian Care Management 10/09/21 Jammie Gann APRN-CNP [address] [place] [address] [place] [address] AVIATION TECHNICIAN Pulmonary Medicine 10/27/21 Eris Vladez MD [address] [place] [address] Fellow Endocrinology/Medici ne 10/27/21 French Folder Relationship Specialty Start Date End Date Jammie Gann APRN-PHP MAGENTO DEVELOPER [address] [place] [address] [place] [address] PCP - General Internal Medicine 10/16/21 Gracie Sanchez RN [address] [place] [address] [place] [address] Maintenance Custodian Care Management 10/09/21 Jammie Gann MEAT BONER AND SLICER-PHP MAGENTO DEVELOPER [address] [place] [address] [place] [address] AVIATION TECHNICIAN Pulmonary Medicine 10/27/21 Eris Valdez MD [address] [place] [address] Fellow Endocrinology/Medici ne 10/27/21 French Folder Relationship Specialty Start Date End Date Jammie Gann MEAT BONER AND SLICER-PHP MAGENTO DEVELOPER [address] [place] [address] [place] [address] PCP - General Internal Medicine 10/16/21 Gracie Sanchez RN [address] [place] [address] [place] [address] Maintenance Custodian Care Management 10/09/21 Jammie Gann MEAT BONER AND SLICER-PHP MAGENTO DEVELOPER [address] [place] [address] [place] [address] AVIATION TECHNICIAN Pulmonary Medicine 10/27/21 Eris Valdez MD [address] [place] [address] Fellow Endocrinology/Medici ne 10/27/21 French Folder Relationship Specialty Start Date End Date Jammie Gann APRN-PHP MAGENTO DEVELOPER [address] [place] [address] [place] [address] PCP - General Internal Medicine 10/16/21 Gracie Sanchez RN [address] [place] [address] [place] [address] Maintenance Custodian Care Management 10/09/21 Jammie Gann MEAT BONER AND SLICER-PHP MAGENTO DEVELOPER [address] [place] [address] [place] [address] AVIATION TECHNICIAN Pulmonary Medicine 10/27/21 Eris Valdez MD [address] [place] [address] Fellow Endocrinology/Medici ne 10/27/21 French Folder Relationship Specialty Start Date End Date Jammie Gann APRN-PHP MAGENTO DEVELOPER [address] [place] [address] [place] [address] PCP - General Internal Medicine 10/16/21 Gracie Sanchez RN [address] [place] [address] [place] [address] Maintenance Custodian Care Management 10/09/21 Jammie Gann APRN-PHP MAGENTO DEVELOPER [address] [place] [address] [place] [address] AVIATION TECHNICIAN Pulmonary Medicine 10/27/21 Eris Valdez MD [address] [place] [address] Fellow Endocrinology/Medici ne 10/27/21 French Folder Relationship Specialty Start Date End Date Jammie Gann APRN-PHP MAGENTO DEVELOPER [address] [place] [address] [place] [address] PCP - General Internal Medicine 10/16/21 Gracie Sanchez RN [address] [place] [address] [place] [address] Maintenance Custodian Care Management 10/09/21 Jammie Gann APRN-PHP MAGENTO DEVELOPER [address] [place] [address] [place] [address] AVIATION TECHNICIAN Pulmonary Medicine 10/27/21 Eris Valdez MD [address] [place] [address] Fellow Endocrinology/Medici ne 10/27/21 French Folder Relationship Specialty Start Date End Date Jammie Gann APRN-PHP MAGENTO DEVELOPER [address] [place] [address] [place] [address] PCP - General Internal Medicine 10/16/21 Gracie Sanchez RN [address] [place] [address] [place] [address] Maintenance Custodian Care Management 10/09/21 Jammie Gann, MEAT BONER AND SLICER-PHP MAGENTO DEVELOPER [address] [place] [address] [place] [address] AVIATION TECHNICIAN Pulmonary Medicine 10/27/21 Eris Valdez MD [address] [place] [address] Fellow Endocrinology/Medici ne 10/27/21 French Folder Relationship Specialty Start Date End Date Jammie Gann, MEAT BONER AND SLICER-PHP MAGENTO DEVELOPER [address] [place] [address] [place] [address] PCP - General Internal Medicine 10/16/21 Gracie Sanchez, BECKIE [address] [place] [address] [place] [address] Maintenance Custodian Care Management 10/09/21 Jammie Gann, MEAT BONER AND SLICER-PHP MAGENTO DEVELOPER [address] [place] [address] [place] [address] AVIATION TECHNICIAN Pulmonary Medicine 10/27/21 Eris Valdez MD [address] [place] [address] Fellow Endocrinology/Medici ne 10/27/21 Radha Cole DO [address] [place] [address] Physician Radiology 04/27/22 French Folder Relationship Specialty Start Date End Date Dejuan Boles MD [address] [place] [address] PCP - General Internal Medicine 07/22/22 Gracie Sanchez, BECKIE [address] [place] [address] [place] [address] Maintenance Custodian Care Management 10/09/21 Jammie Gann, MEAT BONER AND SLICER-PHP MAGENTO DEVELOPER [address] [place] [address] [place] [address] AVIATION TECHNICIAN Pulmonary Medicine 10/27/21 Eris Valdez MD [address] [place] [address] 7[address] Fellow Endocrinology/Medici ne 10/27/21 Radha Cole DO [address] [place] [address] 14697 Physician Radiology 04/27/22 French Folder Relationship Specialty Start Date End Date Dejuan Boles MD [address] [place] [address] PCP - General Internal Medicine 07/22/22 Gracie Sanchez RN [address] [place] [address] [place] [address] Maintenance Custodian Care Management 10/09/21 Jammie Gann APRN-PHP MAGENTO DEVELOPER [address] [place] [address] [place] [address] AVIATION TECHNICIAN Pulmonary Medicine 10/27/21 Eris Valdez MD [address] [place] [address] Fellow Endocrinology/Medici ne 10/27/21 aRdha Cole DO [address] [place] [address] 5[address]80 Physician Radiology 04/27/22 French Folder Relationship Specialty Start Date End Date Dejuan Boles MD [address] [place] [address] 630[address] PCP - General Internal Medicine 07/22/22 Gracie Sanchez, BECKIE [address] [place] [address] [place] [address] Maintenance Custodian Care Management 10/09/21 Jammie Gann APRN-PHP MAGENTO DEVELOPER [address] [place] [address] [place] [address] AVIATION TECHNICIAN Pulmonary Medicine 10/27/21 Eris Valdez MD [address] [place] [address] 54201 Fellow Endocrinology/Medici ne 10/27/21 Radha Cole DO [address] [place] [address] 57128 Physician Radiology 04/27/22 French Folder Relationship Specialty Start Date End Date Dejuan Boles MD [address] [place] [address] 13738 PCP - General Internal Medicine 07/22/22 Gracie Sanchez RN [address] [place] [address] [place] [address] Maintenance Custodian Care Management 10/09/21 Jammie Gann APRN-PHP MAGENTO DEVELOPER [address] [place] [address] [place] [address] AVIATION TECHNICIAN Pulmonary Medicine 10/27/21 Eris Valdez MD [address] [place] [address] 20500 Fellow Endocrinology/Medici ne 10/27/21 Radha Cole DO [address] [place] [address] 37930 Physician Radiology 04/27/22 French Folder Relationship Specialty Start Date End Date Dejuan Boles MD [address] [place] [address] 55346 PCP - General Internal Medicine 07/22/22 Gracie Sanchez RN [address] [place] [address] [place] [address] Maintenance Custodian Care Management 10/09/21 Jammie Gann MEAT BONER AND SLICER-PHP MAGENTO DEVELOPER [address] [place] [address] [place] [address] AVIATION TECHNICIAN Pulmonary Medicine 10/27/21 Eris Valdez MD [address] [place] [address] 22031 Fellow Endocrinology/Medici ne 10/27/21 Radha Cole DO [address] [place] [address] 28854 Physician Radiology 04/27/22 French Folder Relationship Specialty Start Date End Date Dejuan Boles MD [address] [place] [address] 94779 PCP - General Internal Medicine 07/22/22 Gracie Sanchez, BECKIE [address] [place] [address] [place] [address] Maintenance Custodian Care Management 10/09/21 Jammie Gann, MEAT BONER AND SLICER-PHP MAGENTO DEVELOPER [address] [place] [address] [place] [address] AVIATION TECHNICIAN Pulmonary Medicine 10/27/21 Eris Valdez MD [address] [place] [address] 00486 Fellow Endocrinology/Medici ne 10/27/21 Radha Cole DO [address] [place] [address] 02498 Physician Radiology 04/27/22 French Folder Relationship Specialty Start Date End Date Dejuan Boles MD [address] [place] [address] 64932 PCP - General Internal Medicine 07/22/22 Gracie Sanchez, BECKIE [address] [place] [address] [place] [address] Maintenance Custodian Care Management 10/09/21 Jammie Gann, MEAT BONER AND SLICER-PHP MAGENTO DEVELOPER [address] [place] [address] [place] [address] AVIATION TECHNICIAN Pulmonary Medicine 10/27/21 Eris Valdez MD [address] [place] [address] 20946 Fellow Endocrinology/Medici ne 10/27/21 Radha Cole DO [address] [place] [address] 14477 Physician Radiology 04/27/22 French Folder Relationship Specialty Start Date End Date Dejuan Boles MD [address] [place] [address] 58812 PCP - General Internal Medicine 07/22/22 Gracie Sanchez RN [address] [place] [address] [place] [address] Maintenance Custodian Care Management 10/09/21 Jammie Gann, MEAT BONER AND SLICER-PHP MAGENTO DEVELOPER [address] [place] [address] [place] [address] AVIATION TECHNICIAN Pulmonary Medicine 10/27/21 Eris Valdez MD [address] [place] [address] 23914 Fellow Endocrinology/Medici ne 10/27/21 Radha Cole DO [address] [place] [address] 45158 Physician Radiology 04/27/22 French Folder Relationship Specialty Start Date End Date Dejuan Boles MD [address] [place] [address] 50674 PCP - General Internal Medicine 07/22/22 Gracie Sanchez RN [address] [place] [address] [place] [address] Maintenance Custodian Care Management 10/09/21 Jammie Gann, MEAT BONER AND SLICER-PHP MAGENTO DEVELOPER [address] [place] [address] [place] [address] AVIATION TECHNICIAN Pulmonary Medicine 10/27/21 Eris Valdez MD [address] [place] [address] 89657 Fellow Endocrinology/Medici ne 10/27/21 Radha Cole DO [address] [place] [address] 17560 Physician Radiology 04/27/22 French Folder Relationship Specialty Start Date End Date Dejuan Boles MD [address] [place] [address] 07865 PCP - General Internal Medicine 07/22/22 Gracie Sanchez RN [address] [place] [address] [place] [address] Maintenance Custodian Care Management 10/09/21 Jammie Gann, MEAT BONER AND SLICER-PHP MAGENTO DEVELOPER [address] [place] [address] [place] [address] AVIATION TECHNICIAN Pulmonary Medicine 10/27/21 Eris Valdez MD [address] [place] [address] 09599 Fellow Endocrinology/Medicine 10/27/21 Radha Cole DO [address] [place] [address] 72625 Physician Radiology 04/27/22 Deacon Paulino MD [address] [place] [address] 76808 Physician Orthopaedics 11/23/22 Austin Wood, PT [address] [place] [address] 68563 Physical Therapist Physical Therapy 11/23/22 French Folder Relationship Specialty Start Date End Date Dejuan Boles MD [address] [place] [address] 46087 PCP - General Internal Medicine 07/22/22 Gracie Sanchez RN [address] [place] [address] [place] [address] Maintenance Custodian Care Management 10/09/21 Jammie Gann, MEAT BONER AND SLICER-PHP MAGENTO DEVELOPER [address] [place] [address] [place] [address] AVIATION TECHNICIAN Pulmonary Medicine 10/27/21 Eris Valdez MD [address] [place] [address] 77227 Fellow Endocrinology/Medicine 10/27/21 Radha Cole, [address] [place] [address] 53482 Physician Radiology 04/27/22 Deacon Paulino MD [address] [place] [address] 27288 Physician Orthopaedics 11/23/22 Austin Wood, PT [address] [place] [address] 20850 Physical Therapist Physical Therapy 11/23/22 French Folder Relationship Specialty Start Date End Date Dejuan Boles MD [address] [place] [address] 61775 PCP - General Internal Medicine 07/22/22 Gracie Sanchez, BECKIE [address] [place] [address] [place] [address] Maintenance Custodian Care Management 10/09/21 Jammie Gann, MEAT BONER AND SLICER-PHP MAGENTO DEVELOPER [address] [place] [address] [place] [address] AVIATION TECHNICIAN Pulmonary Medicine 10/27/21 Eris Valdez MD [address] [place] [address] 01025 Fellow Endocrinology/Medicine 10/27/21 Radha Cole DO [address] [place] [address] 02297 Physician Radiology 04/27/22 Deacon Paulino MD [address] [place] [address] 02125 Physician Orthopaedics 11/23/22 Austin Wood, PT [address] [place] [address] 41444 Physical Therapist Physical Therapy 11/23/22 French Folder Relationship Specialty Start Date End Date Dejuan Boles MD [address] [place] [address] 49352 PCP - General Internal Medicine 07/22/22 Gracie Sanchez RN [address] [place] [address] [place] [address] Maintenance Custodian Care Management 10/09/21 Jammie Gann, MEAT BONER AND SLICER-PHP MAGENTO DEVELOPER [address] [place] [address] [place] [address] AVIATION TECHNICIAN Pulmonary Medicine 10/27/21 Eris Valdez MD [address] [place] [address] 64264 Fellow Endocrinology/Medicine 10/27/21 Radha Cole DO [address] [place] [address] 40016 Physician Radiology 04/27/22 Deacon Paulino MD [address] [place] [address] 56262 Physician Orthopaedics 11/23/22 Austin Wood, PT [address] [place] [address] 64195 Physical Therapist Physical Therapy 11/23/22 French Folder Relationship Specialty Start Date End Date Dejuan Boles MD [address] [place] [address] 78434 PCP - General Internal Medicine 07/22/22 Gracie Sanchez, BECKIE [address] [place] [address] [place] [address] Maintenance Custodian Care Management 10/09/21 Jammie Gann, MEAT BONER AND SLICER-PHP MAGENTO DEVELOPER [address] [place] [address] [place] [address] AVIATION TECHNICIAN Pulmonary Medicine 10/27/21 Eris Valdez MD [address] [place] [address] 16500 Fellow Endocrinology/Medicine 10/27/21 Radha Cole DO [address] [place] [address] 43480 Physician Radiology 04/27/22 Deacon Paulino MD [address] [place] [address] 40398 Physician Orthopaedics 11/23/22 Austin Wood, PT [address] [place] [address] 13973 Physical Therapist Physical Therapy 11/23/22 French Folder Relationship Specialty Start Date End Date Dejuan Boles MD [address] [place] [address] 39437 PCP - General Internal Medicine 07/22/22 Gracie Sanchez RN [address] [place] [address] [place] [address] Maintenance Custodian Care Management 10/09/21 Jammie Gann, MEAT BONER AND SLICER-PHP MAGENTO DEVELOPER [address] [place] [address] [place] [address] AVIATION TECHNICIAN Pulmonary Medicine 10/27/21 Eris Valdez MD [address] [place] [address] 96935 Fellow Endocrinology/Medicine 10/27/21 Radha Cole DO [address] [place] [address] 09077 Physician Radiology 04/27/22 Deacon Paulino MD [address] [place] [address] 92601 Physician Orthopaedics 11/23/22 Austin Wood, PT [address] [place] [address] 68355 Physical Therapist Physical Therapy 11/23/22 Kailey Hall DO [address] [place] [address] 24756 Physician Physical Medicine & Rehab/PM&R 12/28/22 French Folder Relationship Specialty Start Date End Date Dejuan Boles MD [address] [place] [address] [address] PCP - General Internal Medicine 07/22/22 Gracie Sanchez, BECKIE [address] [place] [address] [place] [address] Maintenance Custodian Care Management 10/09/21 Jammie Gann, MEAT BONER [employer] SLICER-[employer] MAGENTO DEVELOPER [address] [place] [address] [place] [address] AVIATION TECHNICIAN Pulmonary Medicine 10/27/21 Eris Valdez MD [address] [place] [address] 28495 Fellow Endocrinology/Medicine 10/27/21 Radha Cole DO [address] [place] [address] 47708 Physician Radiology 04/27/22 Deacon Paulino MD [address] [place] [address] 56599 Physician Orthopaedics 11/23/22 Austin Wood, PT [address] [place] [address] 30291 Physical Therapist Physical Therapy 11/23/22 Kailey Hall DO [address] [place] [address] 32632 Physician Physical Medicine & Rehab/PM&R 12/28/22 French Folder Relationship Specialty Start Date End Date Dejuan Boles MD [address] [place] [address] 39105 PCP - General Internal Medicine 07/22/22 Gracie Sanchez RN [address] [place] [address] [place] [address] Maintenance Custodian Care Management 10/09/21 Jammie Gann MEAT B[employer]ER [employer]ICER-[employer] MAGENTO DEVELOPER [address] [place] [address] [place] [address] AVIATION TECHNICIAN Pulmonary Medicine 10/27/21 Eris Valdez MD [address] [place] [address] 01479 Fellow Endocrinology/Medicine 10/27/21 Radha Cole DO [address] [place] [address] 68486 Physician Radiology 04/27/22 Deacon Paulino MD [address] [place], [place] [id number] Physician Orthopaedics 11/23/22 Austin Wood, ANGELINA [address] [place] [address] 79398 Physical Therapist Physical Therapy 11/23/22 Kailey Hall DO [address] [place] [address] 45340 Physician Physical Medicine & Rehab/PM&R 12/28/22 French Folder Relationship Specialty Start Date End Date Dejuan Boles MD [address] [place] [address] 35244 PCP - General Internal Medicine 07/22/22 Gracie Sanchez RN [address] [place] [address] [place] [address] Maintenance Custodian Care Management 10/09/21 Jammie Gann, ME[employer] B[employer]ER-[employer] MAGENTO DEVELOPER [address] [place] [address] [place] [address] AVIATION TECHNICIAN Pulmonary Medicine 10/27/21 Eris Valdez MD [address] [place] [address] 98916 Fellow Endocrinology/Medicine 10/27/21 Radha Cole DO [address] [place] [address] 26034 Physician Radiology 04/27/22 Deacon Paulino MD [address] [place] [address] 78180 Physician Orthopaedics 11/23/22 Austin Wood PT [address] [place] [address] 39529 Physical Therapist Physical Therapy 11/23/22 Kailey Hall DO [address] [place] [address] 87978 Physician Physical Medicine & Rehab/PM&R 12/28/22 French Folder Relationship Specialty Start Date End Date Dejuan Boles MD [address] [place] [address] 42811 PCP - General Internal Medicine 07/22/22 Grcaie Sanchez, BECKIE [address] [place] [address] [address] [place] [id number] Maintenance Custodian Care Management 10/09/21 Jammie Gann APRN-PHP MAGENTO DEVELOPER [address] [place] [address] [place] [address] AVIATION TECHNICIAN Pulmonary Medicine 10/27/21 Eris Valdez MD [address] [place] [address] 87731 Fellow Endocrinology/Medicine 10/27/21 Radha Cole DO [address] [place] [address] 42586 Physician Radiology 04/27/22 Deacon Paulino MD [address] [place] [address] 22759 Physician Orthopaedics 11/23/22 Austin Wood, PT [address] [place] [address] 27946 Physical Therapist Physical Therapy 11/23/22 Kailey Hall DO [address] [place] [address] 67362 Physician Physical Medicine & Rehab/PM&R 12/28/22 French Folder Relationship Specialty Start Date End Date Dejuan Boles MD [address] [place] [address] 70449 PCP - General Internal Medicine 07/22/22 Gracie Sanchez, BECKIE [address] [place] [address] [place] [address] Maintenance Custodian Care Management 10/09/21 Jammie Gann APRN-PHP MAGENTO DEVELOPER [address] [place] [address] [place] [address] AVIATION TECHNICIAN Pulmonary Medicine 10/27/21 Eris Valdez MD [address] [place] [address] 99724 Fellow Endocrinology/Medicine 10/27/21 Radha Cole DO [address] [place] [address] 44419 Physician Radiology 04/27/22 Deacon Paulino MD [address] [place] [address] Physician Orthopaedics 11/23/22 Austin Wood, PT [address] [place] [address] 29311 Physical Therapist Physical Therapy 11/23/22 Kailey Hall DO [address] [place] [address] Physician Physical Medicine & Rehab/PM&R 12/28/22 French Folder Relationship Specialty Start Date End Date Dejuan Boles MD [address] [place] [address] PCP - General Internal Medicine 07/22/22 Gracie Sanchez RN [address] [place] [address] [place] [address] Maintenance Custodian Care Management 10/09/21 Jammie Gann, MEAT B[employer]ER [employer]ER-[employer] MAGENTO DEVELOPER [address] [place] [address] [address] [place] [id number] AVIATION TECHNICIAN Pulmonary Medicine 10/27/21 Eris Valdez MD [address] [place] [address] 09845 Fellow Endocrinology/Medicine 10/27/21 Radha Cole DO [address] [place] [address] 22213 Physician Radiology 04/27/22 Deacon Paulino MD [address] [place] [address] 27244 Physician Orthopaedics 11/23/22 Austin Wodo, PT [address] [place] [address] 43643 Physical Therapist Physical Therapy 11/23/22 Kailey Hall DO [address] [place] [address] 75754 Physician Physical Medicine & Rehab/PM&R 12/28/22 French Folder Relationship Specialty Start Date End Date Dejuan Boles MD [address] [place] [address] 98043 PCP - General Internal Medicine 07/22/22 Gracie Sanchez, BECKIE [address] [place] [address] [place] [address] Maintenance Custodian Care Management 10/09/21 Jammie Gann APRN-PHP MAGENTO DEVELOPER [address] [place] [address] [place] [address] AVIATION TECHNICIAN Pulmonary Medicine 10/27/21 Eris Valdez MD [address] [place] [address] 37576 Fellow Endocrinology/Medicine 10/27/21 Radha Cole DO [address] [place] [address] 56247 Physician Radiology 04/27/22 Deacon Paulino MD [address] [place] [address] 18133 Physician Orthopaedics 11/23/22 Austin Wood, PT [address] [place] [address] 87008 Physical Therapist Physical Therapy 11/23/22 Kailey Hall DO [address] [place] [address] 79505 Physician Physical Medicine & Rehab/PM&R 12/28/22 French Folder Relationship Specialty Start Date End Date Dejuan Boles MD [address] [place] [address] 98306 PCP - General Internal Medicine 07/22/22 Gracie Sanchez, BECKIE [address] [place] [address] [address] [place] [id number] Maintenance Custodian Care Management 10/09/21 Jammie Gann, MEAT BONER [employer] SLICER-PHP MAGENTO DEVELOPER [address] [place] [address] [place] [address] AVIATION TECHNICIAN Pulmonary Medicine 10/27/21 Eris Valdez MD [address] [place] [address] 68055 Fellow Endocrinology/Medicine 10/27/21 Radha Cole DO [address] [place] [address] Physician Radiology 04/27/22 Deacon Paulino MD [address] [place] [address] 57253 Physician Orthopaedics 11/23/22 Austin Wood PT [address] [place] [address] 44984 Physical Therapist Physical Therapy 11/23/22 Kailey Hall DO [address] [place] [address] 87225 Physician Physical Medicine & Rehab/PM&R 12/28/22 French Folder Relationship Specialty Start Date End Date Dejuan Boles MD [address] [place] [address] 09520 PCP - General Internal Medicine 07/22/22 Gracie Sanchez, BECKIE [address] [place] [address] [place] [address] Maintenance Custodian Care Management 10/09/21 Jammie Gann APRN-PHP MAGENTO DEVELOPER [address] [place] [address] [place] [address] AVIATION TECHNICIAN Pulmonary Medicine 10/27/21 Eris Valdez MD [address] [place] [address] 64254 Fellow Endocrinology/Medicine 10/27/21 Radha Cole DO [address] [place] [address] 83899 Physician Radiology 04/27/22 Deacon Paulino MD [address] [place] [address] 02959 Physician Orthopaedics 11/23/22 Austin Wood PT [address] [place] [address] 51694 Physical Therapist Physical Therapy 11/23/22 Kailey Hall DO [address] [place] [address] 53570 Physician Physical Medicine & Rehab/PM&R 12/28/22 French Folder Relationship Specialty Start Date End Date Dejuan Boles MD [address] [place] [address] 82651 PCP - General Internal Medicine 07/22/22 Gracie Sanchez, BECKIE [address] [place] [address] [place] [address] Maintenance Custodian Care Management 10/09/21 Jammie Gann APRN-JEFERSON [address] [place] [address] [place] [address] AVIATION TECHNICIAN Pulmonary Medicine 10/27/21 Eris Valdez MD [address] [place] [address] 36847 Fellow Endocrinology/Medicine 10/27/21 Radha Cole DO [address] [place] [address] 46520 Physician Radiology 04/27/22 Deacon Paulino MD [address] [place] [address] 12737 Physician Orthopaedics 11/23/22 Austin Wood PT [address] [place] [address] 38292 Physical Therapist Physical Therapy 11/23/22 Kailey Hall DO [address] [place] [address] 89932 Physician Physical Medicine & Rehab/PM&R 12/28/22 Anna Stewart MD [address] [place] [address] 37664 Physician Obstetrics/Gynecology 05/31/23 French Folder Relationship Specialty Start Date End Date Dejuan Boles MD [address] [place] [address] 16790 PCP - General Internal Medicine 07/22/22 Gracie Sanchez, BECKIE [address] [place] [address] [address] [place] [id number] Maintenance Custodian Care Management 10/09/21 Jammie Gann APRN-PHP MAGENTO DEVELOPER [address] [place] [address] [place] [address] AVIATION TECHNICIAN Pulmonary Medicine 10/27/21 Eris Valdez MD [address] [place] [address] 08682 Fellow Endocrinology/Medicine 10/27/21 Radha Cole DO [address] [place] [address] 63760 Physician Radiology 04/27/22 Deacon Paulino MD [address] [place] [address] 78017 Physician Orthopaedics 11/23/22 Austin Wood PT [address] [place] [address] 69583 Physical Therapist Physical Therapy 11/23/22 Kailey Hall DO [address] [place] [address] 44468 Physician Physical Medicine & Rehab/PM&R 12/28/22 Anna Stewart MD [address] [place] [address] 83306 Physician Obstetrics/Gynecology 05/31/23 French Folder Relationship Specialty Start Date End Date Dejuan Boles MD [address] [place] [address] 95209 PCP - General Internal Medicine 07/22/22 Gracie Sanchez RN [address] [place] [address] [place] [address] Maintenance Custodian Care Management 10/09/21 Jammie Gann APRN-PHP MAGENTO DEVELOPER [address] [place] [address] [place] [address] AVIATION TECHNICIAN Pulmonary Medicine 10/27/21 Eris Valdez MD [address] [place] [address] 59722 Fellow Endocrinology/Medicine 10/27/21 Radha Cole DO [address] [place] [address] 66431 Physician Radiology 04/27/22 Deacon Paulino MD [address] [place] [address] 43698 Physician Orthopaedics 11/23/22 Austin Wood PT [address] [place] [address] 37858 Physical Therapist Physical Therapy 11/23/22 Kailey Hall DO [address] [place] [address] 50699 Physician Physical Medicine & Rehab/PM&R 12/28/22 Anna Stewart MD [address] [place] [address] 45234 Physician Obstetrics/Gynecology 05/31/23 French Folder Relationship Specialty Start Date End Date Dejuan Boles MD [address] [place], [place] [id number] PCP - General Internal Medicine 07/22/22 Gracie Sanchez, BECKIE [address] [place] [address] [address] [place] [phone] Maintenance Custodian Care Management 10/09/21 Jammie Gann APRN-PHP MAGENTO DEVELOPER [address] [place] [address] [place] [address] AVIATION TECHNICIAN Pulmonary Medicine 10/27/21 Eris Valdez MD [address] [place], [place] [id number] Fellow Endocrinology/Medicine 10/27/21 Radha Cole DO [address] [place], [place] [id number] Physician Radiology 04/27/22 Deacon Paulino MD [address] [place], [place] [id number] Physician Orthopaedics 11/23/22 Austin Wood PT [address] [place], [place] [id number] Physical Therapist Physical Therapy 11/23/22 Kailey Hall DO [address] [place], [place] [id number] Physician Physical Medicine & Rehab/PM&R 12/28/22 Anna Stewart MD [address] [place], [place] [id number] Physician Obstetrics/Gynecology 05/31/23 French Folder Relationship Specialty Start Date End Date Dejuan Boles MD [address] [place], [place] [id number] PCP - General Internal Medicine 07/22/22 Gracie Sanchez, BECKIE [address] [place] [address] [address] [place] [id number] Maintenance Custodian Care Management 10/09/21 Jammie Gann APRN-PHP MAGENTO DEVELOPER [address] [place] [address] [address] [place] [phone] AVIATION TECHNICIAN Pulmonary Medicine 10/27/21 Eris Valdez MD [address] [place], [place] [id number] Fellow Endocrinology/Medicine 10/27/21 Radha Cole DO [address] [place] [address] 36015 Physician Radiology 04/27/22 Deacon Paulino MD [address] [place] [address] 98083 Physician Orthopaedics 11/23/22 Austin Wood PT [address] [place] [address] 40906 Physical Therapist Physical Therapy 11/23/22 Kailey Hall DO [address] [place] [address] 73561 Physician Physical Medicine & Rehab/PM&R 12/28/22 Anna Stewart MD [address] [place], [place] [id number] Physician Obstetrics/Gynecology 05/31/23 French Folder Relationship Specialty Start Date End Date Dejuan Boles MD [address] [place], [place] [id number] PCP - General Internal Medicine 07/22/22 Gracie Sanchez RN [address] [place] [address] [address] [place] [id number] Maintenance Custodian Care Management 10/09/21 Jammie Gann APRN-PHP MAGENTO DEVELOPER [address] [place] [address] [place] [address] AVIATION TECHNICIAN Pulmonary Medicine 10/27/21 Eris Valdez MD [address] [place] [address] 49060 Fellow Endocrinology/Medicine 10/27/21 Radha Cole DO [address] [place] [address] 91689 Physician Radiology 04/27/22 Deacon Paulino MD [address] [place], [place] [id number] Physician Orthopaedics 11/23/22 Austin Wood, PT [address] [place] [address] 44544 Physical Therapist Physical Therapy 11/23/22 Kailey Hall DO [address] [place] [address] 83622 Physician Physical Medicine & Rehab/PM&R 12/28/22 Anna Stewart MD [address] [place], [place] [id number] Physician Obstetrics/Gynecology 05/31/23 French Folder Relationship Specialty Start Date End Date Dejuan Boles MD [address] [place], [place] [id number] PCP - General Internal Medicine 07/22/22 Gracie Sanchez, BECKIE [address] [place] [address] [place] [address] Maintenance Custodian Care Management 10/09/21 Jammie Gann, MANPREET-PHP MAGENTO DEVELOPER [address] [place] [address] [place] [address] AVIATION TECHNICIAN Pulmonary Medicine 10/27/21 Radha Cole DO [address] [place] [address] 16316 Physician Radiology 04/27/22 Deacon Paulino MD [address] [place] [address] 40511 Physician Orthopaedics 11/23/22 Austin Wood PT [address] [place] [address] Physical Therapist Physical Therapy 11/23/22 Kailey Hall DO [address] [place] [address] 22203 Physician Physical Medicine & Rehab/PM&R 12/28/22 Anna Stewart MD [address] [place] [address] Physician Obstetrics/Gynecology 05/31/23 French Folder Relationship Specialty Start Date End Date Dejuan Boles MD [address] [place], [place] [id number] PCP - General Internal Medicine 07/22/22 Gracie Sanchez, BECKIE [address] [place] [address] [place] [address] Maintenance Custodian Care Management 10/09/21 Jammie Gann APRN-PHP MAGENTO DEVELOPER [address] [place] [address] [place] [address] AVIATION TECHNICIAN Pulmonary Medicine 10/27/21 Radha Cole DO [address] [place] [address] 58918 Physician Radiology 04/27/22 Deacon Paulino MD [address] [place] [address] 33297 Physician Orthopaedics 11/23/22 Austin Wood, PT [address] [place] [address] 14110 Physical Therapist Physical Therapy 11/23/22 Kailey Hall DO [address] [place] [address] 85827 Physician Physical Medicine & Rehab/PM&R 12/28/22 Anna Stewart MD [address] [place] [address] 53772 Physician Obstetrics/Gynecology 05/31/23 French Folder Relationship Specialty Start Date End Date Dejuna Boles MD [address] [place], [place] [id number] PCP - General Internal Medicine 07/22/22 Gracie Sanchez RN [address] [place] [address] [place] [address] Maintenance Custodian Care Management 10/09/21 Jammie Gann APRN-PHP MAGENTO DEVELOPER [address] [place] [address] [place] [address] AVIATION TECHNICIAN Pulmonary Medicine 10/27/21 Radha Cole DO [address] [place] [address] 59439 Physician Radiology 04/27/22 Deacon Paulino MD [address] [place] [address] 23608 Physician Orthopaedics 11/23/22 Austin Wood, PT [address] [place] [address] 21977 Physical Therapist Physical Therapy 11/23/22 Kailey Hall DO [address] [place] [address] 63118 Physician Physical Medicine & Rehab/PM&R 12/28/22 Anna Stewart MD [address] [place] [address] 58908 Physician Obstetrics/Gynecology 05/31/23 Team Status: Active Member Role Status Dates Dr. Jared Kunz MD Family Provider Active Angelica Watkins MD Primary Care Provider Active Team Status: Inactive Member Role Status Dates Angelica Watkins MD Primary Care Provider Active St art: October 28, 2024 End: October 28, 2024 Dr. Ifeoma Harris MD Attending Provider Act valerie Start: October 28, 2024 End: October 28, 2024 Dr. Ifeoma Harris MD Referring Provider Act valerie Start: October 28, 2024 End: October 28, 2024 Team Status: Inactive Member Role Status Dates Angelica Watkins MD Primary Care Provider Active St art: December 20, 2024 End: December 20, 2024 Angelica Watkins MD Attending Provider Active Start : December 20, 2024 End: December 20, 2024 Angelica Watkins MD Referring Provider Active Start : December 20, 2024 End: December 20, 2024 Team Status: Inactive Member Role Status Dates Angelica Watkins MD Primary Care Provider Active St art: January 28, 2025 End: January 28, 2025 Dr. Ifeoma Harris MD Attending Provider Act valerie Start: January 28, 2025 End: January 28, 2025 Dr. Ifeoma Harris MD Referring Provider Act valerie Start: January 28, 2025 End: January 28, 2025 Team Status: Active Member Role/Relationship Status Dates Dr. Jared Kunz MD Family Provider Active Angelica Watkins MD Primary Care Provider Active Team Status: Inactive Member Role/Relationship Status Dates Angelica Watkins MD Primary Care Provider Active St art: December 20, 2024 End: December 20, 2024 Angelica Watkins MD Attending Provider Active Start : December 20, 2024 End: December 20, 2024 Angelica Watkins MD Referring Provider Active Start : December 20, 2024 End: December 20, 2024 Team Status: Inactive Member Role/Relationship Status Dates Angelica Watkins MD Primary Care Provider Active St art: January 28, 2025 End: January 28, 2025 Dr. Ifeoma Harris MD Attending Provider Act valerie Start: January 28, 2025 End: January 28, 2025 Dr. Ifeoma Harris MD Referring Provider Act valerie Start: January 28, 2025 End: January 28, 2025 Team Status: Inactive Member Role/Relationship Status Dates Angelica Watkins MD Primary Care Provider Active St art: April 08, 2025 End: April 08, 2025 Dr. Elfego Durand MD Attending Provider Active Start: April 08, 2025 End: April 08, 2025 Dr. Elfego Durand MD Referring Provider Active Start: April 08, 2025 End: April 08, 2025 French Folder Relationship Specialty Start Date End Date Dejuan Crain MD [address] [place] [address] PCP - General Internal Medicine 07/22/22 Gracie Sanchez, BECKIE [address] [place] [address] [place] [id number] Maintenance Custodian Care Management 10/09/21 Jammie Gann APRN-PHP MAGENTO DEVELOPER [address] [place] [address] [place] [id number] AVIATION TECHNICIAN Pulmonary Medicine 10/27/21 Radha Cole DO [address] [place], [place] [id number] Physician Radiology 04/27/22 Deacon Paulino MD [address] [place] [address] Physician Orthopaedics 11/23/22 Austin Wood, PT [address] [place] [address] 65738 Physical Therapist Physical Therapy 11/23/22 Kailey Hall DO [address] [place] [address] 74338 Physician Physical Medicine & Rehab/PM&R 12/28/22 Anna Stewart MD [address] [place] [address] 56466 Physician Obstetrics/Gynecology 05/31/23 French Folder Relationship Specialty Start Date End Date Dejuan Crain MD [address] [place] [address] 98638 PCP - General Internal Medicine 07/22/22 Gracie Sanchez, BECKIE [address] [place] [address] [place] [address] Maintenance Custodian Care Management 10/09/21 Jammie Gann, MEAT BONER [employer] SLICER-PHP MAGENTO DEVELOPER [address] [place] [address] [place] [address] AVIATION TECHNICIAN Pulmonary Medicine 10/27/21 Radha Cole DO [address] [place] [address] 69567 Physician Radiology 04/27/22 Deacno Paulino MD [address] [place] [address] 90847 Physician Orthopaedics 11/23/22 Austin Wood, PT [address] [place] [address] 58121 Physical Therapist Physical Therapy 11/23/22 Kailey Hall DO [address] [place] [address] 28578 Physician Physical Medicine & Rehab/PM&R 12/28/22 Anna Stewart MD [address] [place] [address] 21639 Physician Obstetrics/Gynecology 05/31/23 Goals (unrecognized section and content) Goals may be documented in a n alternate section No data available for this section No data available for this sectionGoals may be documented in an alternate section No data available for this section No data available for this sectionGoals may be documented in an alternate section No data available for this section FOR RECORDS PERTAINING TO PATIENTS WHO ARE OR HAVE BEEN ENROLLED IN A CHEMICAL DEPENDENCY/SUBSTANCEABUSE PROGRAM, SOME INFORMATION MAY BE OMITTED. This clinical summary was aggregated from multiple sources. Caution should be exercised in using it in the provision of clinical care. This summary normalizes information from multiple sources, and as a consequence, information in this document may materially change the coding, format and clinical context of patient data. In addition, data may be omitted in some cases. CLINICAL DECISIONS SHOULD BE BASED ON THE PRIMARY CLINICAL RECORDS. [employer] provides no warranty or guarantee of the accuracy or completeness of information in this document.
[2025-08-03 10:39] LABS: Creatinine, Urine (random) 215.00 mg/dL (28.00-217.00); Microalbumin,Random Urine 15.1 mg/L (<20 mg/L)
[2025-08-03 10:55] LABS: AST(SGOT) 27 U/L (<=31); Alanine Aminotransfer ALT/SGPT 23 U/L (<=34); Albumin, Serum 4.4 g/dL (3.5-5.0); Alkaline Phosphatase 74 U/L (35-104); Anion Gap 13 (5-15); BUN 14 mg/dL (4-19); BUN/Creat Ratio 14.2 RATIO (10-20); Calcium,Total 9.0 mg/dL (7.6-11.0); Carbon Dioxide 21.3 mmol/L (21.0-32.0); Chloride 101 mmol/L (98-108); Free T3 2.7 pg/mL (2.18-3.98); Globulin 2.4 g/dL (2.2-4.2); Glucose 176 mg/dL (70-99); Potassium 4.5 mmol/L (3.3-5.1); Vitamin D,25 Hydroxy 56.0 ng/mL (30-100)
[2025-08-04 15:08] LABS: Immunoglobulin A 162 mg/dL (87-352)
[2025-08-05 03:07] LABS: CHOLESTEROL TOTAL 226 mg/dL (100-199); HDL-C 84 mg/dL (>39); HDL-P TOTAL 38.9 umol/L (>=30.5); INSULIN RESISTANCE SCORE <25 (<=45); LDL SIZE 22.0 nm (>20.5); LDL-C (NIH CALC) 129 mg/dL (0-99); LDL-P 1078 nmol/L (<1000); SMALL LDL-P <90 nmol/L (<=527)
== END | disposition home or self-care (01) ==
PROVIDERS: PCP Family Medicine; Referring Provider Internal Medicine Endocrinology, Diabetes & Metabolism; Visit Provider Internal Medicine Endocrinology, Diabetes & Metabolism
DX: E13.9 Other specified diabetes mellitus without complications (principal); E03.9 Hypothyroidism, unspecified; E78.5 Hyperlipidemia, unspecified; Z46.81 Encounter for fitting and adjustment of insulin pump
CPT/HCPCS: 36415; 80053; 80061; 82043; 82306; 82570; 82784; 83036; 83516; 83704; 84439; 84443; 84481; 84681